=== PATIENT | female | born 1990 | race Caucasian/White ===

== ENCOUNTER → 2016-07-31 | Outpatient (CLI) | payer BC ==
[~2016-07-31] MED LIST: ACET50TA PO; ANUS2.5C2 PR; COLA50CA3 PO; FERR32TA PO; IBUP40TA PO; MOM30SS PO; PRENTAB74 PO; PROZ10CA7 PO; RISP1TAB3 PO
[2016-07-31 13:51] LABS: PROLACTIN 10.6 NG/ML
[2016-07-31 13:52] LABS: ESTRADIOL 28.5 PG/ML; FOLLICLE STIMULATING HORMONE 10.4 mIU/mL; LUTEINIZING HORMONE 6.4 mIU/mL
[2016-07-31 13:55] LABS: FREE T4 0.88 NG/DL (0.76-1.46)
[2016-08-03 00:08] LABS: 17 HYDROXY PROGESTERONE 26 ng/dL (.)
== END ==
LOC: M SMT 10:28
PROVIDERS: ATTEND Advanced Practice Midwife
DX: N97.9 Female infertility, unspecified (principal)

== ENCOUNTER → 2016-08-18 | Outpatient (REF) | payer BC | LOC: M LABDRWAD 09:47 → M LAB REF 09:47 | PROVIDERS: ATTEND Advanced Practice Midwife | DX: N97.9 Female infertility, unspecified (principal) ==

== ENCOUNTER → 2016-09-24 | Outpatient (CLI) | payer BC ==
[2016-09-24 14:27] LABS: BASO % 0.5 % (0.0-1.0); EOS # 0.1 K/mm3 (0.0-0.50); EOS % 1.6 % (0.0-3.0); LARGE UNSTAINED CELL # 0.1 K/mm3 (0.0-0.4); LARGE UNSTAINED CELL % 1.1 % (0.0-4.0); LYMPH # 1.8 K/mm3 (1.5-6.5); LYMPH % 28.4 % (24.0-44.0); MEAN CORPUSCULAR HGB CONC 33.9 g/dl (32.0-36.5); MEAN CORPUSCULAR VOLUME 85.6 fl (80.0-96.0); MONO # 0.3 K/mm3 (0.0-0.8); MONO % 4.5 % (0.0-5.0); NEUTROPHILS # 4.1 K/mm3 (1.8-7.7); PLATELET COUNT, AUTOMATED 289 k/mm3 (150-450); RED CELL DISTRIBUTION WIDTH 12.4 % (11.5-14.5); WHITE BLOOD COUNT 6.4 K/mm3 (4.0-10.0)
[2016-09-25 12:47] LABS: HIV SCREEN CENTAUR NEGATIVE (NEGATIVE)
[2016-09-25 12:48] LABS: HBsAg Prenatal NEGATIVE (NEGATIVE)
== END ==
LOC: M SMT 09:46
PROVIDERS: ATTEND Advanced Practice Midwife
DX: Z34.81 Encounter for supervision of other normal pregnancy, first trimester (principal)

== ENCOUNTER 2016-10-17 15:30 | Emergency (ER) | payer BC ==
[~2016-10-17] VITALS: Ht 162.6 cm; Wt 90.7 kg
[2016-10-17] MEDS ORDERED: VITA50TA43 PO (15:51)
[2016-10-17] MEDS ORDERED: UNIS25TA2 PO (15:51)
[2016-10-17] MEDS ORDERED: METOCLOPRAMIDE INJ 10MG/2ML VIAL (J2765) IV ONE (16:30)
[2016-10-17] MEDS ORDERED: NS 1,000 ML IV ONE (16:30)
[2016-10-17] MEDS ORDERED: PYRIDOXINE 50 MG TAB PO ONE (17:00)
[2016-10-17] MEDS ORDERED: NITR100C37 PO (17:25)
[2016-10-17 17:37] LABS: BASO % 0.2 % (0.0-1.0); EOS # 0.1 K/mm3 (0.0-0.50); EOS % 0.6 % (0.0-3.0); LARGE UNSTAINED CELL # 0.1 K/mm3 (0.0-0.4); LARGE UNSTAINED CELL % 0.7 % (0.0-4.0); LYMPH # 1.8 K/mm3 (1.5-6.5); MEAN CORPUSCULAR HEMOGLOBIN 29.5 pg (27.0-33.0); MEAN CORPUSCULAR VOLUME 84.4 fl (80.0-96.0); MONO # 0.4 K/mm3 (0.0-0.8); MONO % 3.7 % (0.0-5.0); NEUTROPHILS # 9.7 K/mm3 (1.8-7.7); NEUTROPHILS % 80.8 % (36.0-66.0); PLATELET COUNT, AUTOMATED 282 k/mm3 (150-450); RED CELL DISTRIBUTION WIDTH 12.6 % (11.5-14.5)
[2016-10-17 18:34] LABS: ALBUMIN 3.5 GM/DL (3.2-5.2); ALBUMIN/GLOBULIN RATIO 0.95 (1.00-1.93); ALKALINE PHOSPHATASE 53 U/L (45-117); ALT/SGPT 33 U/L (12-78); ANION GAP 12 MEQ/L (8-16); AST/SGOT 12 U/L (15-37); BILIRUBIN,DIRECT 0.3 MG/DL (0.0-0.2); BILIRUBIN,TOTAL 0.8 MG/DL (0.2-1.0); BLOOD UREA NITROGEN 5 MG/DL (7-18); CALCIUM LEVEL 8.4 MG/DL (8.5-10.1); CARBON DIOXIDE LEVEL 23 MEQ/L (21-32); CHLORIDE LEVEL 103 MEQ/L (98-107); GLOMERULAR FILTRATION RATE > 60.0 (>60); GLUCOSE, FASTING 91 MG/DL (70-105); HCG, SERUM QUANTITATIVE 41958 MIU/ML; POTASSIUM SERUM 3.4 MEQ/L (3.5-5.1); SODIUM LEVEL 138 MEQ/L (136-145); TOTAL PROTEIN 7.2 GM/DL (6.4-8.2)
[2016-10-17 18:55] VITALS: BP 107/65
== END 2016-10-17 19:03 | disposition home or self-care (01) ==
LOC: M ED 16:28
DX: O21.0 Mild hyperemesis gravidarum (principal); O23.41 Unspecified infection of urinary tract in pregnancy, first trimester; Z3A.11 11 weeks gestation of pregnancy; O99.341 Other mental disorders complicating pregnancy, first trimester; F33.9 Major depressive disorder, recurrent, unspecified; Z88.0 Allergy status to penicillin
CPT/HCPCS: 36415; 80048; 80076; 81001; 84702; 85025; 87086; 96361; 96374; 99282; J2765

== ENCOUNTER 2016-10-19 10:14 | Emergency (ER) | payer BC ==
[~2016-10-19] VITALS: Ht 162.6 cm; Wt 90.7 kg
[~2016-10-19 10:14] MED LIST changes: +NITR100C37 PO; +UNIS25TA2 PO; +VITA50TA43 PO
[2016-10-19] MEDS ORDERED: REGL5TAB2 PO (10:24)
[2016-10-19] MEDS ORDERED: NS 1,000 ML IV ONE (10:45)
[2016-10-19 11:03] LABS: BASO % 0.2 % (0.0-1.0); EOS # 0.1 K/mm3 (0.0-0.50); EOS % 1.2 % (0.0-3.0); LARGE UNSTAINED CELL # 0.1 K/mm3 (0.0-0.4); LYMPH # 1.8 K/mm3 (1.5-6.5); LYMPH % 18.4 % (24.0-44.0); MEAN CORPUSCULAR HEMOGLOBIN 29.4 pg (27.0-33.0); MEAN CORPUSCULAR HGB CONC 35.7 g/dl (32.0-36.5); MEAN CORPUSCULAR VOLUME 82.4 fl (80.0-96.0); MONO # 0.3 K/mm3 (0.0-0.8); MONO % 3.3 % (0.0-5.0); NEUTROPHILS # 6.9 K/mm3 (1.8-7.7); NEUTROPHILS % 75.8 % (36.0-66.0); PLATELET COUNT, AUTOMATED 312 k/mm3 (150-450); RED CELL DISTRIBUTION WIDTH 12.5 % (11.5-14.5); WHITE BLOOD COUNT 9.2 K/mm3 (4.0-10.0)
[2016-10-19] MEDS ORDERED: ONDANSETRON 4MG/2ML VIAL (J2405) IV PRN (11:15)
[2016-10-19 11:23] LABS: ALBUMIN 3.5 GM/DL (3.2-5.2); ALBUMIN/GLOBULIN RATIO 0.81 (1.00-1.93); ALKALINE PHOSPHATASE 57 U/L (45-117); ALT/SGPT 34 U/L (12-78); ANION GAP 13 MEQ/L (8-16); AST/SGOT 14 U/L (15-37); BILIRUBIN,DIRECT 0.4 MG/DL (0.0-0.2); BILIRUBIN,TOTAL 0.8 MG/DL (0.2-1.0); BLOOD UREA NITROGEN 7 MG/DL (7-18); CALCIUM LEVEL 8.8 MG/DL (8.5-10.1); CARBON DIOXIDE LEVEL 21 MEQ/L (21-32); CHLORIDE LEVEL 104 MEQ/L (98-107); CREATININE FOR GFR 0.54 MG/DL (0.55-1.02); GLOMERULAR FILTRATION RATE > 60.0 (>60); GLUCOSE, FASTING 91 MG/DL (70-105); POTASSIUM SERUM 3.1 MEQ/L (3.5-5.1); SODIUM LEVEL 138 MEQ/L (136-145); TOTAL PROTEIN 7.8 GM/DL (6.4-8.2)
[2016-10-19 11:54] LABS: MAGNESIUM LEVEL 1.9 MG/DL (1.8-2.4)
[2016-10-19] MEDS ORDERED: POTASSIUM CHLORIDE 10 MEQ SR TABLET PO ONE (12:15)
[2016-10-19] MEDS ORDERED: ZOFR4TAB3 PO (13:17)
[2016-10-19 13:21] VITALS: BP 123/80
== END 2016-10-19 13:28 | disposition home or self-care (01) ==
LOC: M ED 10:44
DX: O21.0 Mild hyperemesis gravidarum (principal); O99.281 Endocrine, nutritional and metabolic diseases complicating pregnancy, first trimester; E87.6 Hypokalemia; Z3A.12 12 weeks gestation of pregnancy; Z88.0 Allergy status to penicillin
CPT/HCPCS: 80048; 80076; 81001; 83735; 85025; 96374; 99283; J2405

== ENCOUNTER → 2016-10-30 | Outpatient (REF) | payer BC ==
[~2016-10-30] MED LIST changes: +REGL5TAB2 PO; +ZOFR4TAB3 PO
== END ==
LOC: M LAB REF 17:00
PROVIDERS: ATTEND Advanced Practice Midwife
DX: Z34.81 Encounter for supervision of other normal pregnancy, first trimester (principal)

== ENCOUNTER → 2016-12-09 | Outpatient (CLI) | payer BC ==
--- NOTE | 2016-12-10 01:18 | REP ---
Clinical: Anatomical evaluation. Comparison: None . Findings: Examination demonstrates a single live intrauterine in breech presentation. motion is identified by technologist. Placenta is noted anteriorly and grade zero without evidence for placenta previa or abruption. Amniotic fluid volume is normal. Cervix measures 4.0 cm in length and appears closed. No evidence for nuchal cord. Gestational age by LMP 19 weeks 0 days with MUSHTAQ 05/05/2017 . Gestational age by current measurements 18 weeks 6 days with MUSHTAQ 05/06/2017 . FHR equals 141 beats per minute. BPD 4.5 cm 19 weeks 3 days HC 16.6 cm 19 weeks 2 days AC 13.3 cm 18 weeks 5 days FL 2.9 cm 18 weeks 5 days HL 3.1 cm 20 weeks 1 day HC/AC ratio 1.25 Estimated weight 260 grams ( 41st percentile). Anatomical assessment demonstrates normal structures including cranium, choroid plexus, cavum, cerebellum/posterior fossa, lungs, diaphragm, stomach, cord insertion/three-vessel cord, kidneys/bladder, spine, and extremities. Limited evaluation of the facial features and four-chamber heart/ventricular outflow tracts noted. Impression: 1. Single live intrauterine in breech presentation demonstrating appropriate interval growth. 2. Anatomical limitations as described above may warrant reevaluation and follow-up. Signed by Pavan Montoya MD 12/10/2016 01:09 A
== END ==
LOC: M SMT 08:56
PROVIDERS: ATTEND Obstetrics & Gynecology
DX: Z34.82 Encounter for supervision of other normal pregnancy, second trimester (principal)

== ENCOUNTER → 2016-12-25 | Outpatient (CLI) | payer BC ==
--- NOTE | 2016-12-25 14:28 | REP ---
Clinical: Anatomical evaluation. Comparison: 12/09/2016 . Findings: Examination demonstrates a single live intrauterine in breech presentation. motion is identified by technologist. Placenta is noted anteriorly and grade zero without evidence for placenta previa or abruption. Amniotic fluid volume is normal. Cervix measures 5.8 cm in length and appears closed. No evidence for nuchal cord. Gestational age by LMP 21 weeks 2 days with MUSHTAQ 05/05/2017 . Gestational age by current measurements 21 weeks 4 days with MUSHTAQ 05/03/2017 . FHR equals 141 beats per minute. Estimated weight 428 grams ( 52nd percentile). Anatomical assessment demonstrates normal structures including cranium, choroid plexus, cavum, cerebellum/posterior fossa, facial features, lungs, diaphragm, stomach, cord insertion/three-vessel cord, kidneys/bladder, spine, and extremities. Incomplete evaluation of the heart and ventricular outflow tracts noted. Impression: 1. Single live intrauterine in breech presentation demonstrating appropriate interval growth. 2. With the exception of the heart and ventricular outflow tracts, anatomical assessment is complete and normal. Signed by Pavan Montoya MD 12/25/2016 02:20 P
== END ==
LOC: M SMT 12:59
PROVIDERS: ATTEND Advanced Practice Midwife
DX: Z36 Encounter for antenatal screening of mother (principal); Z3A.21 21 weeks gestation of pregnancy

== ENCOUNTER 2017-01-11 20:04 | Outpatient (CLI) | payer BC ==
[~2017-01-11] VITALS: Ht 162.6 cm; Wt 81.0 kg
[~2017-01-11 20:04] MED LIST changes: -NITR100C37 PO; +NITR100C39 PO
[2017-01-11 20:19] VITALS: BP 120/68
[2017-05-05] MEDS ORDERED: ACET50TA PO (10:55)
[2017-05-05] MEDS ORDERED: IBUP-1114 PO (10:57)
[2017-05-05] MEDS ORDERED: PRENTAB9 PO (11:03)
== END 2017-01-11 21:00 | disposition home or self-care (01) ==
LOC: M LDO 20:04
PROVIDERS: ATTEND Obstetrics & Gynecology
DX: O26.892 Other specified pregnancy related conditions, second trimester (principal); R10.9 Unspecified abdominal pain; Z3A.23 23 weeks gestation of pregnancy; O62.0 Primary inadequate contractions

== ENCOUNTER → 2017-01-23 | Outpatient (CLI) | payer BC ==
[~2017-01-23] MED LIST changes: +IBUP-1114 PO; +PRENTAB9 PO
--- NOTE | 2017-01-24 03:43 | REP ---
Clinical: Anatomical re-evaluation. Comparison: 12/25/2016 . Findings: Examination demonstrates a single live intrauterine in breech presentation. motion is identified by technologist. Placenta is noted anteriorly and grade I without evidence for placenta previa or abruption. Amniotic fluid volume is normal. Cervix measures 4.1 cm in length and appears closed. Nuchal cord appreciated. Gestational age by LMP 25 weeks 3 days with MUSHTAQ 05/05/2017 . Gestational age by current measurements 25 weeks 4 days with MUSHTAQ 05/04/2017 . FHR equals 144 beats per minute. Estimated weight 851 grams ( 53rd percentile). Anatomical assessment demonstrates normal structures including cranium, choroid plexus, cavum, cerebellum/posterior fossa, lungs, four-chamber heart/ventricular outflow tracts, diaphragm, stomach, cord insertion/three-vessel cord, kidneys/bladder, spine, and extremities. Impression: Single live intrauterine in breech presentation demonstrating appropriate interval growth. Nuchal cord noted. In conjunction with prior examination anatomical assessment is complete and normal. Signed by Pavan Montoya MD 01/24/2017 03:35 A
== END ==
LOC: M SMT 10:57
PROVIDERS: ATTEND Specialist
DX: Z36 Encounter for antenatal screening of mother (principal); Z3A.25 25 weeks gestation of pregnancy

== ENCOUNTER → 2017-01-28 | Outpatient (CLI) | payer BC ==
[2017-01-28 13:16] LABS: BASO % 0.3 % (0.0-1.0); EOS # 0.2 K/mm3 (0.0-0.50); EOS % 2.8 % (0.0-3.0); LARGE UNSTAINED CELL # 0.1 K/mm3 (0.0-0.4); LARGE UNSTAINED CELL % 0.6 % (0.0-4.0); LYMPH # 1.5 K/mm3 (1.5-6.5); LYMPH % 16.9 % (24.0-44.0); MEAN CORPUSCULAR HEMOGLOBIN 29.5 pg (27.0-33.0); MEAN CORPUSCULAR HGB CONC 32.7 g/dl (32.0-36.5); MEAN CORPUSCULAR VOLUME 90.3 fl (80.0-96.0); MONO # 0.4 K/mm3 (0.0-0.8); MONO % 5.1 % (0.0-5.0); NEUTROPHILS # 6.2 K/mm3 (1.8-7.7); NEUTROPHILS % 74.3 % (36.0-66.0); PLATELET COUNT, AUTOMATED 283 k/mm3 (150-450); RED CELL DISTRIBUTION WIDTH 12.5 % (11.5-14.5); WHITE BLOOD COUNT 8.4 K/mm3 (4.0-10.0)
== END ==
LOC: M SMT 09:50
PROVIDERS: ATTEND Specialist
DX: Z34.82 Encounter for supervision of other normal pregnancy, second trimester (principal)
CPT/HCPCS: 36415; 82950; 85025; 86850; 86900; 86901; J2790

== ENCOUNTER → 2017-02-13 | Outpatient (CLI) | payer BC | LOC: M LAB 07:42 | PROVIDERS: ATTEND Advanced Practice Midwife | DX: Z34.82 Encounter for supervision of other normal pregnancy, second trimester (principal) ==

== ENCOUNTER → 2017-04-10 | Outpatient (REF) | payer BC | LOC: M LAB REF 12:59 | PROVIDERS: ATTEND Advanced Practice Midwife | DX: Z34.83 Encounter for supervision of other normal pregnancy, third trimester (principal) ==

== ENCOUNTER → 2017-07-18 | Outpatient (REF) | payer BC ==
[2017-07-18 15:08] LABS: FREE THYROXINE INDEX 5.9 % (1.3-4.8); T UPTAKE 32 % (30-39); THYROID STIMULATING HORMONE 0.012 uIU/ML (0.358-3.740); THYROXINE (T4) 18.3 UG/DL (4.5-12.0)
[2017-07-18 15:14] LABS: TOTAL 25(OH) VITAMIN D 14.8 NG/ML (30.0-100.0)
== END ==
LOC: M LABSMT 13:41
DX: F32.89 Other specified depressive episodes (principal)
CPT/HCPCS: 84443

== ENCOUNTER → 2017-11-12 | Outpatient (REF) | payer BC | LOC: M LAB REF 18:58 | DX: Z12.4 Encounter for screening for malignant neoplasm of cervix (principal) | CPT/HCPCS: G0123 ==

== ENCOUNTER → 2018-01-13 | Outpatient (CLI) | payer BC | LOC: M ADAMS 16:58 | DX: E03.8 Other specified hypothyroidism (principal) | CPT/HCPCS: 84443 ==

== ENCOUNTER → 2018-10-26 | Outpatient (REF) | payer BC ==
[~2018-10-26] MED LIST changes: -ACET50TA PO; -IBUP40TA PO; +MAPA500T17 PO; +MAPA500T2 PO; -UNIS25TA2 PO; +UNIS25TA3 PO; +ZOFR4TAB14 PO; -ZOFR4TAB3 PO
[2018-10-26 12:44] LABS: HCG, SERUM QUALITATIVE NEGATIVE (NEGATIVE)
== END ==
LOC: M LABDRWAD 12:17
PROVIDERS: ATTEND Advanced Practice Midwife
DX: N92.6 Irregular menstruation, unspecified (principal)

== ENCOUNTER → 2018-11-10 | Outpatient (REF) | payer BC ==
[~2018-11-10] MED LIST changes: +CIPR-249 PO; +HYDR-3713 PO; +LEVO50TA5 PO
[2018-11-10 14:19] LABS: FOLLICLE STIMULATING HORMONE 8.2 mIU/mL; PROLACTIN 7.3 NG/ML
[2018-11-14 00:07] LABS: INSULIN FREE 14 uU/mL (.); INSULIN TOTAL2 14 uU/mL (.)
== END ==
LOC: M LAB REF 13:19
PROVIDERS: ATTEND Advanced Practice Midwife
DX: N92.6 Irregular menstruation, unspecified (principal)

== ENCOUNTER 2018-11-18 19:51 | Day surgery (SDC) | payer BC ==
[~2018-11-18] VITALS: Ht 162.6 cm; Wt 93.2 kg
[~2018-11-18 19:51] MED LIST changes: -CIPR-249 PO; -HYDR-3713 PO; -LEVO50TA5 PO
[2018-11-18] MEDS ORDERED: LEVO50TA5 PO (19:58)
[2018-11-18 22:07] LABS: BASO % 0.3 % (0.0-1.0); EOS # 0.1 10^3/uL (0.0-0.50); EOS % 0.5 % (0.0-3.0); HEMATOCRIT 41.4 % (36.0-47.0); HEMOGLOBIN 13.5 g/dl (12.0-15.5); LYMPH # 2.3 10^3/uL (1.5-6.5); LYMPH % 15.5 % (24.0-44.0); MEAN CORPUSCULAR HEMOGLOBIN 28.1 pg (27.0-33.0); MEAN CORPUSCULAR HGB CONC 32.6 g/dl (32.0-36.5); MEAN CORPUSCULAR VOLUME 86.3 fl (80.0-96.0); MONO # 0.7 10^3/uL (0.0-0.8); MONO % 4.9 % (0.0-5.0); NEUTROPHILS # 11.6 10^3/uL (1.8-7.7); NEUTROPHILS % 78.3 % (36.0-66.0); PLATELET COUNT, AUTOMATED 287 10^3/uL (150-450); WHITE BLOOD COUNT 14.8 10^3/uL (4.0-10.0)
[2018-11-18 22:38] LABS: ALBUMIN 4.1 GM/DL (3.2-5.2); ALT/SGPT 16 U/L (12-78); BILIRUBIN,DIRECT 0.1 MG/DL (0.0-0.2); BILIRUBIN,TOTAL 0.5 MG/DL (0.2-1.0); BLOOD UREA NITROGEN 5 MG/DL (7-18); CALCIUM LEVEL 8.9 MG/DL (8.5-10.1); CARBON DIOXIDE LEVEL 30 MEQ/L (21-32); CHLORIDE LEVEL 107 MEQ/L (98-107); CREATININE FOR GFR 0.81 MG/DL (0.55-1.30); GLOMERULAR FILTRATION RATE > 60.0 (>60); GLUCOSE, FASTING 100 MG/DL (70-100); LIPASE 155 U/L (73-393); POTASSIUM SERUM 4.3 MEQ/L (3.5-5.1); SODIUM LEVEL 143 MEQ/L (136-145); TOTAL PROTEIN 7.4 GM/DL (6.4-8.2)
[2018-11-18 23:18] LABS: HCG, SERUM QUALITATIVE NEGATIVE (NEGATIVE)
--- NOTE | 2018-11-19 00:43 | REPVR ---
EXAM: US Pelvis Complete, Transabdominal EXAM DATE/TIME: 11/18/2018 11:49 PM CLINICAL HISTORY: 28 years old, female; Pelvic pain; Additional info: R/O ovarian torsion TECHNIQUE: Imaging protocol: Real-time transabdominal pelvic ultrasound with image documentation. Complete exam. COMPARISON: US OBS FOLL UP OR REPEAT EACH GES 01/23/2017 11:15 AM FINDINGS: Uterus/cervix: Uterus measures 8.2 x 3.2 x 4.9 cm. Endometrial stripe measures 6.3 mm in thickness. No masses. Right adnexa: Right ovary 2.7 x 2.2 x 2.5 cm. Ovary is normal. No mass. Normal blood flow. Left adnexa: Left ovary measures 2.6 x 1.6 x 1.9 cm. Ovary is normal. No mass. Normal blood flow. Free fluid: None. Bladder: Normal. IMPRESSION: Unremarkable pelvic ultrasound. Electronically signed by: Rozina Simon On 11/19/2018 00:42:09 AM
[2018-11-19] MEDS ORDERED: ONDANSETRON 4MG/2ML VIAL (J2405) IV ONE (00:45)
[2018-11-19] MEDS ORDERED: NS 1,000 ML IV SCH (00:45)
[2018-11-19] MEDS ORDERED: MORPHINE 4 MG/ML 1ML VIAL/SYRINGE (J2270) IV PRN (00:45)
[2018-11-19] MEDS ORDERED: ISOVUE-370 76% 100ML VIAL (Q9967) As Ordered ONE (00:49)
[2018-11-19] MEDS: GASTROGRAFIN SOLUTION 30ML PO SCH ×2 (01:40→02:08)
--- NOTE | 2018-11-19 02:33 | REPVR ---
EXAM: CT Abdomen and Pelvis With Contrast EXAM DATE/TIME: 11/19/2018 12:33 AM CLINICAL HISTORY: 28 years old, female; Abdominal pain; Periumbilical; Additional info: Appendicitis TECHNIQUE: Imaging protocol: Axial computed tomography images of the abdomen and pelvis with intravenous contrast. Coronal and sagittal reformatted images were created and reviewed. Radiation optimization: All CT scans at this facility use at least one of these dose optimization techniques: automated exposure control; mA and/or kV adjustment per patient size (includes targeted exams where dose is matched to clinical indication); or iterative reconstruction. Contrast material: ISO; Contrast volume: 100 ml; Contrast route: AC; COMPARISON: US ANATOMY TEACHER 11/18/2018 11:43 PM FINDINGS: ABDOMEN: Liver: Dome of the liver is not imaged. No mass. Gallbladder and bile ducts: Normal. No calcified stones. No ductal dilation. Pancreas: Normal. No ductal dilation. Spleen: Normal. No splenomegaly. Adrenals: Normal. No mass. Kidneys and ureters: Normal. No hydronephrosis. Stomach and bowel: No obstruction. No mucosal thickening. Small fluid in the right colon.Moderate stool in the colon. Negative for colonic diverticulitis. Appendix: Distal appendix measures 11 mm in diameter. Periappendiceal stranding. PELVIS: Bladder: Unremarkable as visualized. Reproductive: Uterus is normal. ABDOMEN and PELVIS: Intraperitoneal space: Normal. No free air. No significant fluid collection. Bones/joints: No acute fracture. No dislocation. Soft tissues: Unremarkable. Vasculature: Normal. No abdominal aortic aneurysm. Lymph nodes: Normal. No enlarged lymph nodes. IMPRESSION: 1. Findings consistent with acute appendicitis. 2. Periappendiceal stranding however, doubtful for appendiceal perforation. 3. Mild diarrhea. COMMENT: THIS REPORT CONTAINS FINDINGS THAT MAY BE CRITICAL TO PATIENT CARE. The findings were verbally communicated via telephone conference with Dr. VIEIRA, at 2:31 AM EDT on 11/19/2018. The findings were acknowledged and understood. Electronically signed by: Rozina Simon On 11/19/2018 02:32:45 AM
[2018-11-19] MEDS ORDERED: CIPROFLOXACIN 400 MG in APPROPRIATE DILUENT 1 EA IV ONE (03:30)
[2018-11-19] MEDS ORDERED: metroNIDAZOLE 500 MG in APPROPRIATE DILUENT 1 EA IV ONE (03:30)
[2018-11-19] MEDS ORDERED: CIPROFLOXACIN/D5W 400 MG/200 ML BAG (J0744) As Ordered ONE (05:39)
[2018-11-19] MEDS ORDERED: BUPIVACAINE/EPIN 0.25% 30 ML VIAL As Ordered ONE (05:39)
[2018-11-19] MEDS ORDERED: ROCURONIUM BROMIDE 50 MG/5 ML VIAL As Ordered ONE (05:45)
[2018-11-19] MEDS ORDERED: LIDOCAINE 2% INJ 100 MG/5 ML SDV (FOR ANES.) As Ordered ONE (05:45)
[2018-11-19] MEDS ORDERED: fentaNYL 250 MCG/5 ML INJECTION (J3010) As Ordered ONE (05:45)
[2018-11-19] MEDS ORDERED: PROPOFOL 200 MG/20 ML VIAL As Ordered ONE (05:45)
[2018-11-19] MEDS ORDERED: MIDAZOLAM INJ 2 MG/2 ML VIAL (J2250) As Ordered ONE (05:46)
[2018-11-19] MEDS ORDERED: dexameTHASONE 4 MG/ML 1ML VIAL (J1100) As Ordered ONE (06:22)
[2018-11-19] MEDS ORDERED: ONDANSETRON 4MG/2ML VIAL (J2405) As Ordered ONE (06:34)
[2018-11-19] MEDS ORDERED: KETOROLAC 60 MG/2 ML VIAL (J1885) As Ordered ONE (06:34)
[2018-11-19] MEDS ORDERED: SUGAMMADEX SODIUM 500 MG/5 ML VIAL (BRIDION) As Ordered ONE ×2 (06:35→06:43)
[2018-11-19] MEDS ORDERED: CIPR-249 PO (06:58)
[2018-11-19] MEDS ORDERED: HYDR-3713 PO (06:58)
[2018-11-19] MEDS ORDERED: MEPERIDINE INJ 25 MG/ML VIAL (J2175) IV PRN (07:15)
[2018-11-19] MEDS ORDERED: PERCOCET 5MG/325MG TAB PO PRN (07:15)
[2018-11-19] MEDS ORDERED: NORCO, ANEXSIA 5/325MG TABLET (HYDROcodone/ACETAMINOPHEN) PO PRN (07:15)
[2018-11-19] MEDS ORDERED: LR 1,000 ML IV SCH (07:15)
[2018-11-19] MEDS ORDERED: METOCLOPRAMIDE INJ 10MG/2ML VIAL (J2765) IV PRN (07:15)
[2018-11-19] MEDS ORDERED: fentaNYL 100 MCG/2 ML INJECTION (J3010) IV PRN (07:15)
[2018-11-19] MEDS ORDERED: ONDANSETRON 4MG/2ML VIAL (J2405) IV PRN (07:15)
[2018-11-19 09:32] VITALS: BP 113/68
--- NOTE | 2018-11-19 15:18 | HPE ---
DATE OF ADMISSION: 11/19/2018 CHIEF COMPLAINT: Right lower quadrant pain. HISTORY OF PRESENT ILLNESS: The patient is a 28-year-old female who presented with right lower quadrant pain over 24 hours ago. Pain was fairly constant and got slightly worse over the past 12 hours, so after her got home from work yesterday, she came into emergency room for evaluation. When this initially started, she had some nausea and vomiting. She has not had any since. No other changes. No trauma to the abdomen. No changes in medications. No recent travel or sick contacts and no other complaints. Denies any fevers or changes of bowel movements or problems with urination. PAST MEDICAL HISTORY: Hypothyroidism. PAST SURGICAL HISTORY: None. ALLERGIES: PENICILLIN. MEDICATIONS: Please see med record. SOCIAL HISTORY: Denies drug, alcohol, or tobacco abuse. FAMILY HISTORY: Noncontributory. REVIEW OF SYSTEMS: Pertinent positives and negatives as stated in the history of present illness (HPI). PHYSICAL EXAMINATION: GENERAL: Alert and oriented times three, in no acute stress. VITAL SIGNS: Temperature 98.7, pulse 86, respirations 16, blood pressure 103/58, pulse oximetry 96% on room air. HEENT: Pupils equally round and react to light and accommodation. HEART: S1, S2, regular rate and rhythm. LUNGS: Clear to auscultation bilaterally. ABDOMEN: Soft, tender to palpation in the right lower quadrant with localized guarding. No rebound or rigidity. No ventral hernias. EXTREMITIES: No clubbing, cyanosis or edema. LABORATORY DATA: White count 14.8, hemoglobin 13.5 platelets 287. Potassium 4.3, creatinine 0.81. IMAGING STUDIES: CT of the abdomen and pelvis was done that showed a dilated tip of the appendix at 11 mm with some periappendiceal fat stranding concerning for acute appendicitis. ASSESSMENT AND PLAN: The patient is a 28-year-old female with signs and symptoms consistent with acute appendicitis. Recommendation is to proceed with a laparoscopic appendectomy. The risks and benefits of the procedure not limited to but including bleeding, infection, hernia formation, damage to surrounding structure, the need for further surgery discussed in detail with the patient. Informed consent was obtained and procedure is scheduled for urgently this morning. Postoperatively, we will keep her in the hospital for a few hours, make sure she is tolerating a diet, and then we will likely plan discharge either this afternoon or first thing tomorrow morning.
--- NOTE | 2018-11-19 17:34 | RO ---
DATE OF PROCEDURE: 11/19/2018 PREOPERATIVE DIAGNOSIS: Acute appendicitis. POSTOPERATIVE DIAGNOSIS: Acute appendicitis. PROCEDURE: Laparoscopic appendectomy. SURGEON: Dr. Nawaf Montana AGRICULTURAL RESEARCH TECHNOLOGIST: None. ANESTHESIA: General. COMPLICATIONS: None. INDICATION FOR PROCEDURE: The patient is a 28-year-old female who presents with right lower quadrant pain, found to have acute appendicitis. Recommendation was to proceed with laparoscopic, possible open appendectomy. Risks and benefits of the procedure not limited to but including bleeding, infection, hernia formation, damage to surrounding structures and need for further surgery were discussed in detail with the patient. Informed consent was obtained and procedure was planned. DESCRIPTION OF PROCEDURE: The patient was brought back to operating room three, after sufficient sedation, the abdomen was sterilely prepped and draped. Next, a time-out was done to confirm proper patient, proper procedure. Following that, a 5 mm incision was made in the left upper quadrant. Veress needle was inserted and the abdomen was insufflated to 15 mmHg. Next, the Veress needle was removed, 5 mm Optiview port was used to gain access to the abdomen. Once the abdomen was entered, another 8 mm port was placed supraumbilically in the midline, another 5 mm port suprapubically in the midline. The appendix was then visualized in the right lower quadrant. The tip of the appendix was densely adhered to the retroperitoneum. This was dissected free using the Enseal. The mesoappendix was then taken down using the Enseal until the base of the appendix was reached. Base of the appendix was then ligated with two PDS Endoloops and then transected. Appendix was then placed in a 5 mm Endo Catch bag and brought out through the supraumbilical port site. The abdomen was then examined to confirm hemostasis. The abdomen was then desufflated. Skin incisions were closed with #4-0 Vicryl subcuticular sutures. The abdomen was cleaned and dried. Steri-Strips, 4x4, and tape were applied thus ending procedure.
== END 2018-11-19 09:13 | disposition home or self-care (01) ==
LOC: M ED 19:51 → M SDC 19:52
PROVIDERS: ATTEND Surgery
DX: K35.890 Other acute appendicitis without perforation or gangrene (principal); E03.9 Hypothyroidism, unspecified; Z79.899 Other long term (current) drug therapy
CPT/HCPCS: 44970; 74177; 76856; 80048; 80076; 81001; 83690; 84703; 85025; 87086; 88302; 96361; 96365; 96366; 96375; 99284; J0744; J1100; J1885; J2250; J2405; J3010; Q9963; Q9967

== ENCOUNTER → 2018-11-28 | Outpatient (REF) | payer BC ==
[~2018-11-28] MED LIST changes: +CIPR-249 PO; +HYDR-3713 PO; +LEVO50TA5 PO
[2018-11-30 10:21] LABS: ESTRADIOL 46.3 PG/ML; PROGESTERONE 0.22 NG/ML
== END ==
LOC: M LABDRWAD 09:39
PROVIDERS: ATTEND Advanced Practice Midwife
DX: N92.6 Irregular menstruation, unspecified (principal)

== ENCOUNTER → 2018-12-15 | Outpatient (REF) | payer BC ==
[2018-12-15 13:07] LABS: FREE T4 1.04 NG/DL (0.76-1.46); THYROID STIMULATING HORMONE 1.44 uIU/ML (0.358-3.740)
== END ==
LOC: M LABDRWAD 12:10
PROVIDERS: ATTEND Advanced Practice Midwife
DX: E03.9 Hypothyroidism, unspecified (principal)

== ENCOUNTER 2019-01-03 21:44 | Emergency (ER) | payer BC ==
[~2019-01-03] VITALS: Ht 162.6 cm; Wt 95.5 kg
[2019-01-03 21:45] VITALS: BP 122/69
[2019-01-03 22:24] LABS: BASO # 0.1 10^3/uL (0.0-0.2); BASO % 0.7 % (0.0-1.0); EOS # 0.5 10^3/uL (0.0-0.50); EOS % 7.3 % (0.0-3.0); HEMATOCRIT 40.4 % (36.0-47.0); LYMPH % 40.6 % (24.0-44.0); MEAN CORPUSCULAR HEMOGLOBIN 27.2 pg (27.0-33.0); MEAN CORPUSCULAR HGB CONC 32.2 g/dl (32.0-36.5); MEAN CORPUSCULAR VOLUME 84.5 fl (80.0-96.0); MONO # 0.5 10^3/uL (0.0-0.8); MONO % 6.1 % (0.0-5.0); NEUTROPHILS # 3.3 10^3/uL (1.8-7.7); PLATELET COUNT, AUTOMATED 276 10^3/uL (150-450); RED BLOOD COUNT 4.78 10^6/uL (4.00-5.40); WHITE BLOOD COUNT 7.4 10^3/uL (4.0-10.0)
[2019-01-03 22:46] LABS: ALBUMIN 3.9 GM/DL (3.2-5.2); ALT/SGPT 24 U/L (12-78); BILIRUBIN,DIRECT < 0.1 MG/DL (0.0-0.2); BILIRUBIN,TOTAL 0.1 MG/DL (0.2-1.0); BLOOD UREA NITROGEN 8 MG/DL (7-18); CALCIUM LEVEL 8.4 MG/DL (8.5-10.1); CARBON DIOXIDE LEVEL 28 MEQ/L (21-32); CHLORIDE LEVEL 106 MEQ/L (98-107); CREATININE FOR GFR 0.74 MG/DL (0.55-1.30); GLOMERULAR FILTRATION RATE > 60.0 (>60); GLUCOSE, FASTING 121 MG/DL (70-100); LIPASE 121 U/L (73-393); POTASSIUM SERUM 4.1 MEQ/L (3.5-5.1); SODIUM LEVEL 142 MEQ/L (136-145); TOTAL PROTEIN 7.3 GM/DL (6.4-8.2)
== END 2019-01-03 23:21 | disposition home or self-care (01) ==
LOC: M ED 21:44
DX: G89.18 Other acute postprocedural pain (principal); R10.84 Generalized abdominal pain; Z90.89 Acquired absence of other organs; E03.9 Hypothyroidism, unspecified; Z79.899 Other long term (current) drug therapy; Z88.0 Allergy status to penicillin

== ENCOUNTER → 2019-02-27 | Outpatient (CLI) | payer BC | LOC: M ADAMS 08:40 | PROVIDERS: ATTEND Family Medicine | DX: E03.9 Hypothyroidism, unspecified (principal) ==

== ENCOUNTER → 2019-05-31 | Outpatient (REF) | payer BC, MEDICAID ==
[2019-05-31 19:43] LABS: BASO % 0.4 % (0.0-1.0); EOS # 0.2 10^3/uL (0.0-0.5); EOS % 2.1 % (0.0-3.0); HEMATOCRIT 38.8 % (36.0-47.0); HEMOGLOBIN 12.7 g/dl (12.0-15.5); LYMPH # 2.5 10^3/uL (1.5-5.0); MEAN CORPUSCULAR HEMOGLOBIN 28.8 pg (27.0-33.0); MEAN CORPUSCULAR HGB CONC 32.7 g/dl (32.0-36.5); MONO # 0.5 10^3/uL (0.0-0.8); MONO % 5.1 % (0.0-5.0); NEUTROPHILS # 6.6 10^3/uL (1.5-8.5); PLATELET COUNT, AUTOMATED 289 10^3/uL (150-450); RED BLOOD COUNT 4.41 10^6/uL (4.00-5.40); WHITE BLOOD COUNT 9.9 10^3/uL (4.0-10.0)
[2019-05-31 20:06] LABS: FREE T4 1.03 NG/DL (0.76-1.46)
[2019-05-31 22:27] LABS: CHLAMYDIA DNA AMPLIFICATION NEGATIVE (NEGATIVE); GC DNA AMPLIFICATION NEGATIVE (NEGATIVE)
[2019-06-02 10:07] LABS: RUBELLA IgG QUALITATIVE IMMUNE (IMMUNE)
[2019-06-02 10:36] LABS: HEPATITIS C VIRUS ABY INDEX 0.1 INDEX (<0.8); HIV 1&2 SCREEN CENTAUR NEGATIVE (NEGATIVE)
== END ==
LOC: M LABDRWAD 19:10
PROVIDERS: ATTEND Advanced Practice Midwife
DX: Z34.81 Encounter for supervision of other normal pregnancy, first trimester (principal); Z36.89 Encounter for other specified antenatal screening

== ENCOUNTER → 2019-06-11 | Outpatient (REF) | payer MEDICAID, OTHER | LOC: M SFHCWAGY 12:40 | PROVIDERS: ATTEND Advanced Practice Midwife | DX: Z3A.12 12 weeks gestation of pregnancy (principal) ==

== ENCOUNTER → 2019-07-20 | Outpatient (CLI) | payer OTHER ==
--- NOTE | 2019-07-21 03:08 | REP ---
Clinical: Anatomical evaluation. Comparison: None . Findings: Examination demonstrates a single live intrauterine in transverse (head to maternal left) presentation. motion is identified by technologist. Placenta is noted anterior/left lateral and grade zero without evidence for placenta previa or abruption. Amniotic fluid volume is normal. Cervix measures 3.9 cm in length and appears closed. No evidence for nuchal cord. Gestational age by current measurements 18 weeks 6 days with MUSHTAQ 12/15/2019 . FHR equals 136 beats per minute. BPD 4.5 cm 19 weeks 4 days HC 15.9 cm 18 weeks 5 days AC 13.0 cm 18 weeks 4 days FL 2.9 cm 18 weeks 6 days HL 2.6 cm 18 weeks 2 days HC/AC ratio 1.22 Estimated weight 255 grams ( 44th percentile). Anatomical assessment demonstrates normal structures including cranium, choroid plexus, cavum, cerebellum/posterior fossa, diaphragm, stomach, cord insertion/three-vessel cord, kidneys/bladder, spine, and extremities. Impression: Single live intrauterine in transverse lie demonstrating appropriate estimated weight. Limited evaluation of the facial features and heart/ventricular outflow tracts noted.
== END ==
LOC: M WHC 10:50
PROVIDERS: ATTEND Advanced Practice Midwife
DX: O32.2XX0 Maternal care for transverse and oblique lie, not applicable or unspecified (principal); Z36.89 Encounter for other specified antenatal screening; Z3A.19 19 weeks gestation of pregnancy

== ENCOUNTER → 2019-08-11 | Outpatient (CLI) | payer OTHER ==
[2019-08-11 12:01] LABS: HEMATOCRIT 36.4 % (36.0-47.0); HEMOGLOBIN 11.6 g/dl (12.0-15.5); MEAN CORPUSCULAR HEMOGLOBIN 28.5 pg (27.0-33.0); MEAN CORPUSCULAR HGB CONC 31.9 g/dl (32.0-36.5); MEAN CORPUSCULAR VOLUME 89.4 fl (80.0-96.0); PLATELET COUNT, AUTOMATED 259 10^3/uL (150-450); RED BLOOD COUNT 4.07 10^6/uL (4.00-5.40); WHITE BLOOD COUNT 8.6 10^3/uL (4.0-10.0)
== END ==
LOC: M PLALAB 09:13
PROVIDERS: ATTEND Advanced Practice Midwife
DX: Z34.82 Encounter for supervision of other normal pregnancy, second trimester (principal); Z3A.00 Weeks of gestation of pregnancy not specified

== ENCOUNTER → 2019-09-07 | Outpatient (CLI) | payer OTHER ==
--- NOTE | 2019-09-08 06:57 | REP ---
Clinical: Anatomical evaluation. Comparison: 07/20/2019 . Findings: Examination demonstrates a single live intrauterine in breech presentation. motion is identified by technologist. Placenta is noted anterior and grade zero without evidence for placenta previa or abruption. Amniotic fluid volume is normal. Cervix measures 3.9 cm in length and appears closed. No evidence for nuchal cord. Gestational age by LMP 25 weeks 6 days with MUSHTAQ 12/15/2019 . Gestational age by current measurements 25 weeks 0 days with MUSHTAQ 12/21/2019 . FHR equals 142 beats per minute. Estimated weight 784 grams ( 28th percentile). Anatomical assessment demonstrates normal structures including facial features, lungs, four-chamber heart/ventricular outflow tracts. Impression: Single live intrauterine in breech presentation demonstrating appropriate interval growth. In conjunction with prior examination anatomical assessment is complete and normal.
== END ==
LOC: M WHC 08:29
PROVIDERS: ATTEND Advanced Practice Midwife
DX: O99.282 Endocrine, nutritional and metabolic diseases complicating pregnancy, second trimester (principal); Z3A.25 25 weeks gestation of pregnancy; O32.1XX0 Maternal care for breech presentation, not applicable or unspecified

== ENCOUNTER → 2019-09-15 | Outpatient (REF) | payer OTHER ==
[2019-09-15 17:36] LABS: ALBUMIN 3.1 GM/DL (3.2-5.2); ALT/SGPT 14 U/L (12-78); BILIRUBIN,TOTAL 0.3 MG/DL (0.2-1.0); BLOOD UREA NITROGEN 4 MG/DL (7-18); CALCIUM LEVEL 8.7 MG/DL (8.5-10.1); CARBON DIOXIDE LEVEL 26 MEQ/L (21-32); CHLORIDE LEVEL 106 MEQ/L (98-107); CREATININE FOR GFR 0.48 MG/DL (0.55-1.30); GLOMERULAR FILTRATION RATE > 60.0 (>60); GLUCOSE, FASTING 72 MG/DL (70-100); POTASSIUM SERUM 3.9 MEQ/L (3.5-5.1); SODIUM LEVEL 138 MEQ/L (136-145)
[2019-09-15 17:42] LABS: FREE T4 0.92 NG/DL (0.76-1.46); THYROID STIMULATING HORMONE 1.22 uIU/ML (0.358-3.740)
== END ==
LOC: M PLALAB 12:18
PROVIDERS: ATTEND Advanced Practice Midwife
DX: O99.282 Endocrine, nutritional and metabolic diseases complicating pregnancy, second trimester (principal); Z3A.00 Weeks of gestation of pregnancy not specified

== ENCOUNTER → 2019-10-08 | Outpatient (REF) | payer OTHER ==
[2019-10-08 13:10] LABS: HEMATOCRIT 34.3 % (36.0-47.0); HEMOGLOBIN 11.2 g/dl (12.0-15.5); MEAN CORPUSCULAR HEMOGLOBIN 28.1 pg (27.0-33.0); MEAN CORPUSCULAR HGB CONC 32.7 g/dl (32.0-36.5); MEAN CORPUSCULAR VOLUME 86.2 fl (80.0-96.0); PLATELET COUNT, AUTOMATED 268 10^3/uL (150-450); RED BLOOD COUNT 3.98 10^6/uL (4.00-5.40)
[2019-10-08 13:26] LABS: ALBUMIN 2.7 GM/DL (3.2-5.2); ALT/SGPT 13 U/L (12-78); BILIRUBIN,TOTAL 0.3 MG/DL (0.2-1.0); BLOOD UREA NITROGEN 4 MG/DL (7-18); CALCIUM LEVEL 8.7 MG/DL (8.5-10.1); CARBON DIOXIDE LEVEL 26 MEQ/L (21-32); CHLORIDE LEVEL 104 MEQ/L (98-107); CREATININE FOR GFR 0.51 MG/DL (0.55-1.30); GLOMERULAR FILTRATION RATE > 60.0 (>60); GLUCOSE CHALLENGE TEST 1 HOUR 135 MG/DL (LESS THAN 140); GLUCOSE, FASTING 135 MG/DL (70-100); POTASSIUM SERUM 4.1 MEQ/L (3.5-5.1); SODIUM LEVEL 137 MEQ/L (136-145); TOTAL PROTEIN 6.6 GM/DL (6.4-8.2)
== END ==
LOC: M PLALAB 10:25
PROVIDERS: ATTEND Advanced Practice Midwife
DX: O99.282 Endocrine, nutritional and metabolic diseases complicating pregnancy, second trimester (principal); Z3A.00 Weeks of gestation of pregnancy not specified

== ENCOUNTER → 2019-11-11 | Outpatient (CLI) | payer OTHER | LOC: M LABSMTC 10:19 | PROVIDERS: ATTEND Family Medicine | DX: Z11.59 Encounter for screening for other viral diseases (principal) | CPT/HCPCS: C8903; U0003 ==

== ENCOUNTER → 2019-11-23 | Outpatient (REF) | payer OTHER | LOC: M SFHCWAGY 16:49 | PROVIDERS: ATTEND Obstetrics & Gynecology | DX: Z3A.36 36 weeks gestation of pregnancy (principal) ==

== ENCOUNTER 2019-12-16 04:04 | Inpatient (IN) | payer OTHER ==
[2019-12-16] VITALS (41 sets, daily range): BP systolic 104–161; BP diastolic 59–92
[~2019-12-16] VITALS: Ht 162.6 cm; Wt 107.9 kg
[2019-12-16] MEDS ORDERED: LACTATED RINGER'S 1000 ML IV STA (04:37)
[2019-12-16 05:34] LABS: HEMATOCRIT 33.7 % (36.0-47.0); HEMOGLOBIN 10.8 g/dl (12.0-15.5); MEAN CORPUSCULAR HEMOGLOBIN 26.2 pg (27.0-33.0); MEAN CORPUSCULAR VOLUME 81.6 fl (80.0-96.0); PLATELET COUNT, AUTOMATED 229 10^3/uL (150-450); RED BLOOD COUNT 4.13 10^6/uL (4.00-5.40); WHITE BLOOD COUNT 8.5 10^3/uL (4.0-10.0)
[2019-12-16] MEDS ORDERED: FENTANYL 2MCG/ML ROPIVACAINE 0.2% IN 0.9% NACL 100ML IVBAG As Ordered ONE (05:58)
[2019-12-16] MEDS: LR 1,000 ML IV SCH ×3 (06:30→13:07)
[2019-12-16] MEDS: FENTANYL/ROPIVACAINE/NACL BAG 100 ML EPIDURAL SCH ×2 (07:15→16:29)
[2019-12-16] MEDS ORDERED: EPIDURAL/PCA KEYS XX PRN (07:15)
[2019-12-16] MEDS ORDERED: LACTATED RINGER'S 1000 ML IV PRN (07:15)
[2019-12-16] MEDS ORDERED: EPIDURAL COMMENT XX SCH (07:15)
[2019-12-16] MEDS ORDERED: diphenhydrAMINE 50MG/ML VIAL (J1200) IV PRN (07:15)
[2019-12-16] MEDS ORDERED: NALOXONE INJ 0.4MG/1ML VIAL (J2310 PER 1MG) IV PRN (07:15)
[2019-12-16] MEDS ORDERED: REFRIGERATOR IV KEYS XX PRN (07:15)
[2019-12-16] MEDS ORDERED: ePHEDrine SULFATE 25 MG/5 ML(5MG/ML) SYRINGE IV PRN (07:15)
[2019-12-16] MEDS ORDERED: ONDANSETRON 4MG/2ML VIAL IV PRN ×2 (07:15→17:15)
--- NOTE | 2019-12-16 10:09 | HPEPDOC ---
Obstetrical History & Physical General Date of Admission Dec 16, 2019 at 04:38 Primary Care Physician: ROYAL CARDENAS CNM History of Present Illness Patient is a 29-year-old female who is a at 39.3 with an MUSHTAQ of 12/20/19 based off of her first trimester ultrasound. She initiated care in her first trimester with WW. Her has been complicated by anxiety, depression and hypothyroidism. She presents to L&D with complaints of leaking of clear fluid that started at 0230. She reports active movement and contractions. She denies vaginal bleeding. Chief Complaint: Active Labor, Rupture of membranes Information Provided By: Patient Age: 29 : 3 Term: 2 Pre-term: 0 Abortions: 0 Livin Care Care: Good Care Dating Final EDC: Dec 20, 2019 Final EDC by: 1st trimester (US) EGA at Admission: 39.3 Antepartum Course Diagnos(e)s hypothyroidism Height (inches): 64 Pre- weight (lbs.): 206 Admission Weight (lbs.): 233 Change in Weight (lbs.): 27 Past Medical History Past Obstetrical History #1: Gestation: 38.4 Type of Delivery: Spontaneous Vaginal Del. (04/2012) Sex of Infant: Male (7 lbs 7 oz) Complications: Yes ( hemorrhage) Past Obstetrical History #2: Past Obstetrical History: Multigravida Gestation: 39.6 Type of Delivery: Spontaneous Vaginal Del. 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 Past Medical History Medical History hypothyroidism-taking 50 mcg of Synthroid Surgical History: Appendectomy Family History Significant Family History: Hypertension, Other (Crohn's and hypothyroidism) Social History Marital Status: Family situation: Spouse/partner home Psychosocial History: Anxiety, Depression (hospitalization in 12/2012 for suicidal ideations) * Smoker: non-smoker Alcohol: Denies Drugs: denies Allergies Coded Allergies: penicillin V (Verified Allergy, Unknown, 11/18/18) unknown Medications Scheduled Levothyroxine Sodium (Levothyroxine Sodium) 50 Mcg Tablet, 50 MCG PO DAILY No.137/Iron/Folic Acd ( Vitamin Tablet) 1 Tab Tab, 1 TAB PO QHS Physical Examination Physical Examination GENERAL: Alert and oriented times three. BREAST: . ABDOMEN: Gravid and non-tender to touch. FETUS: Is vertex (VTX) by sterile vaginal examination (SVE), fetus is vertex (V TX) by Rhett. HEART RATE: Regular rate and rhythm. LUNGS: Clear to auscultation (CTA). EXTREMITIES: No edema. No clonus. Deep tendon reflexes (DTRs) + . Vital Signs/I&O Vital Signs Date Time Temp Pulse Resp B/P (MAP) Pulse Ox O2 Delivery O2 Flow Rate FiO2 12/16/19 06:31 113 131/88 (102) 12/16/19 04:27 97.8 20 Laboratory Data 24H LABS Laboratory Tests 2 12/16/19 04:42: Serology Scanned Report Hepatitis B Testing 12/16/19 05:28: Nucleated Red Blood Cells % (auto) 0.0 CBC/BMP Laboratory Tests 12/16/19 05:28 Pertinent Laboratoy Data Blood Type: A- RBC Antibody Screen: Negative HIV: Negative Hepatitis B: Negative Hepatitis C: Negative Rapid Plasma Reagin: Nonreactive Rubella: Immune Chlamydia/Gonorrhea: Negative Group B Streptococcus: Negative Glucose Tolerance Test: 127 Vaginal Examination Dilation: 4 cm Effacement: 100% Station: -2 Position: Vertex (occiput) Assessment Heart Rate (FHR): 130 Variability: Moderate Accelerations: Positive Decelerations: None Tocometer Contractions: Yes Frequency: regular Multi-drug resistant Organism: No history of MDRO Assessment/Plan Assessment IUP at 39.3 weeks gestation Category I FHR tracing GBS negative SROM Plan Admit to L&D. OOB ad alvino. Diet: clears. Group B Streptococcus (GBS) negative. Labs and intravenous (IV) per unit protocol. Counseled on Pitocin for augmentation if needed. Anesthesia consult per patient's request. Lactated Ringers (LR): Bolus 800 mL, then at 125 mL/hr. Anticipate cervical change and . C-S as appropriate. ROYAL CARDENAS CNM Dec 16, 2019 08:15
[2019-12-16] MEDS ORDERED: OXYTOCIN 30 UNITS IN 0.9% NaCl 500ML IV BAG (J2590) As Ordered ONE (13:51)
[2019-12-16] MEDS ORDERED: OXYTOCIN DRIP 30 UNITS in IV 1 EA IV SCH ×2 (14:00→17:02)
[2019-12-16] MEDS ORDERED: ACETAMINOPHEN 500 MG TAB PO ONE (14:15)
[2019-12-16] MEDS ORDERED: LR 1,000 ML IV SCH (17:02)
[2019-12-16] MEDS ORDERED: MEASLES,MUMPS,RUBELLA VACCINE INJ (MMR-II) (90707) SC SCH (17:15)
[2019-12-16] MEDS ORDERED: PROMETHAZINE 25 MG TAB PO PRN (17:15)
[2019-12-16] MEDS ORDERED: DIBUCAINE 1% OINTMENT 30GM TOP PRN (17:15)
[2019-12-16] MEDS ORDERED: DOCUSATE SODIUM 100 MG CAP PO PRN (17:15)
[2019-12-16] MEDS ORDERED: IBUPROFEN 600MG TAB PO PRN (17:15)
[2019-12-16] MEDS ORDERED: RHOGAM 300 MCG (1500 IU) INJ (J2790) IM SCH (17:15)
[2019-12-16] MEDS ORDERED: ACETAMINOPHEN TAB 650MG DOSE (2X325MG) PO PRN (17:15)
[2019-12-16] MEDS: IBUPROFEN 800 MG TAB PO PRN (17:39)
[2019-12-17] MEDS: ACETAMINOPHEN 500 MG TAB PO PRN ×3 (01:04→22:05)
[2019-12-17] MEDS: IBUPROFEN 800 MG TAB PO PRN ×2 (05:43→16:28)
[2019-12-17 06:17] VITALS: BP 133/77
[2019-12-17] MEDS: PRENATAL VITAMINS CHEWABLE TABLET PO SCH (08:25)
--- NOTE | 2019-12-17 08:43 | IPNPDOC ---
Text Note Date of Service The patient was seen on 12/17/19. NOTE PP #1 Feels well. Adequate pain management. Voiding. Desires to resume her zoloft VSS, afebrile, normotensive Breasts soft, nipples intact Fundus firm NT down 1 FB Lochia rubra light without odor Perineum intact PP #1 Desires discharge Reviewed discharge instructions. Rx zoloft 50mg. Will discharge if infant discharged. RTO 6 wks VS,Fishbone, I+O VS, Fishbone, I+O Vital Signs Date Time Temp Pulse Resp B/P (MAP) Pulse Ox O2 Delivery O2 Flow Rate FiO2 12/17/19 06:17 97.8 88 17 133/77 (95) I&O- Last 24 Hours up to 6 AM 12/17/19 05:59 Intake Total 3265 ml Output Total 550 ml Balance 2715 ml Abril Jones CNM Dec 17, 2019 08:43
[2019-12-17] MEDS: LEVOTHYROXINE 50MCG TABLET (0.05MG) PO SCH (10:22)
[2019-12-17] MEDS: SERTRALINE HCL 25 MG TABLET PO SCH (10:22)
[2019-12-17 18:00] VITALS: BP 128/84
[2019-12-18] MEDS: LEVOTHYROXINE 50MCG TABLET (0.05MG) PO SCH (05:28)
[2019-12-18 06:00] VITALS: BP 116/77
[2019-12-18] MEDS ORDERED: SERT25TA21 PO (07:01)
[2019-12-18] MEDS: PRENATAL VITAMINS CHEWABLE TABLET PO SCH (07:32)
[2019-12-18] MEDS: SERTRALINE HCL 25 MG TABLET PO SCH (07:33)
[2019-12-18] MEDS: IBUPROFEN 800 MG TAB PO PRN (08:17)
[2019-12-18] MEDS ORDERED: PILL CUTTER 1 EACH XX PRN (08:45)
[2019-12-18] MEDS ORDERED: FAMOTIDINE 20 MG TAB PO SCH (09:00)
== END 2019-12-18 12:30 | disposition home or self-care (01) | DRG 560 ==
LOC: M LDO 04:04 → M LDI 04:38 → M OBS 18:59
PROVIDERS: ADMIT Advanced Practice Midwife; ATTEND Advanced Practice Midwife
PROC: 10E0XZZ Delivery of Products of Conception, External Approach (ICD-10-PCS; principal; 2019-12-16)
PROC: 0KQM0ZZ Repair Perineum Muscle, Open Approach (ICD-10-PCS; 2019-12-16)
DX: O69.1XX0 Labor and delivery complicated by cord around neck, with compression, not applicable or unspecified (principal); O99.344 Other mental disorders complicating childbirth; F32.9 Major depressive disorder, single episode, unspecified; Z37.0 Single live birth; Z3A.39 39 weeks gestation of pregnancy; E03.9 Hypothyroidism, unspecified; O99.284 Endocrine, nutritional and metabolic diseases complicating childbirth; F41.9 Anxiety disorder, unspecified; O70.1 Second degree perineal laceration during delivery

== ENCOUNTER → 2020-03-08 | Outpatient (REF) | payer OTHER ==
[~2020-03-08] MED LIST changes: +SERT25TA21 PO
== END ==
LOC: M LABDRWAD 09:44
PROVIDERS: ATTEND Obstetrics & Gynecology
DX: E03.9 Hypothyroidism, unspecified (principal)

== ENCOUNTER → 2020-04-28 | Outpatient (REF) | payer OTHER | LOC: M SFHCWAGY 13:50 | PROVIDERS: ATTEND Obstetrics & Gynecology | DX: Z12.4 Encounter for screening for malignant neoplasm of cervix (principal) ==

== ENCOUNTER → 2020-08-07 | Outpatient (REF) | payer OTHER ==
[2020-08-08 14:04] LABS: ALBUMIN 3.6 GM/DL (3.2-5.2); ALT/SGPT 19 U/L (12-78); BILIRUBIN,TOTAL 0.2 MG/DL (0.2-1.0); BLOOD UREA NITROGEN 8 MG/DL (7-18); CALCIUM LEVEL 9.3 MG/DL (8.5-10.1); CARBON DIOXIDE LEVEL 30 MEQ/L (21-32); CHLORIDE LEVEL 107 MEQ/L (98-107); CREATININE FOR GFR 0.76 MG/DL (0.55-1.30); GLOMERULAR FILTRATION RATE > 60.0 (>60); GLUCOSE, FASTING 80 MG/DL (70-100); POTASSIUM SERUM 5.3 MEQ/L (3.5-5.1); SODIUM LEVEL 142 MEQ/L (136-145); TOTAL PROTEIN 7.5 GM/DL (6.4-8.2)
[2020-08-08 15:24] LABS: HEMATOCRIT 41.3 % (36.0-47.0); HEMOGLOBIN 12.9 g/dl (12.0-15.5); MEAN CORPUSCULAR HEMOGLOBIN 27.5 pg (27.0-33.0); MEAN CORPUSCULAR HGB CONC 31.2 g/dl (32.0-36.5); MEAN CORPUSCULAR VOLUME 88.1 fl (80.0-96.0); PLATELET COUNT, AUTOMATED 340 10^3/uL (150-450); RED BLOOD COUNT 4.69 10^6/uL (4.00-5.40); WHITE BLOOD COUNT 7.7 10^3/uL (4.0-10.0)
== END ==
LOC: M LABDRWAD 12:22
PROVIDERS: ATTEND Family Medicine
DX: E03.9 Hypothyroidism, unspecified (principal); F41.1 Generalized anxiety disorder

== ENCOUNTER → 2020-10-22 | Outpatient (CLI) | payer OTHER ==
[~2020-10-22] MED LIST changes: +BUSP5TA PO; +HYDR-3363 PO; +SERT-141 PO; +SYNT75TA PO; +VITA50005 PO
== END ==
LOC: M LABSMTC 08:25
PROVIDERS: ATTEND Anesthesiology
DX: Z01.812 Encounter for preprocedural laboratory examination (principal); Z20.822 Contact with and (suspected) exposure to COVID-19

== ENCOUNTER 2020-10-27 10:19 | Day surgery (SDC) | payer OTHER ==
[~2020-10-27] VITALS: Ht 162.6 cm; Wt 105.7 kg
[~2020-10-27 10:19] MED LIST changes: +LIDOCAINE 1% MDV 20ML VIAL SQ PRN; +LR 1,000 ML IV ONE
[2020-10-27] MEDS ORDERED: ROCURONIUM BROMIDE 50 MG/5 ML VIAL As Ordered ONE (10:40)
[2020-10-27] MEDS ORDERED: MIDAZOLAM INJ 2MG/2ML VIAL (J2250 PER 1MG) As Ordered ONE (10:40)
[2020-10-27] MEDS ORDERED: dexameTHASONE 4 MG/ML 1ML VIAL (J1100 PER 1MG) As Ordered ONE ×2 (10:40→14:29)
[2020-10-27] MEDS ORDERED: LIDOCAINE 2% 100MG/5ML SDV (FOR ANES.) As Ordered ONE (10:40)
[2020-10-27] MEDS ORDERED: ONDANSETRON 4MG/2ML VIAL As Ordered ONE (10:40)
[2020-10-27] MEDS ORDERED: KETOROLAC 60MG 2ML VIAL As Ordered ONE (10:40)
[2020-10-27] MEDS ORDERED: ACETAMINOPHEN 1000MG 100ML IV BTL (OFIRMEV) (J0131 PER 10MG) As Ordered ONE (10:40)
[2020-10-27] MEDS ORDERED: propofoL 200 MG/20 ML VIAL As Ordered ONE (10:40)
[2020-10-27] MEDS ORDERED: SUGAMMADEX SODIUM 500 MG/5 ML VIAL (BRIDION) As Ordered ONE (10:40)
[2020-10-27] MEDS ORDERED: fentaNYL 100 MCG/2 ML INJECTION (J3010) As Ordered ONE (10:41)
[2020-10-27 11:01] LABS: HEMATOCRIT 39.6 % (36.0-47.0); MEAN CORPUSCULAR HEMOGLOBIN 27.4 pg (27.0-33.0); MEAN CORPUSCULAR HGB CONC 32.8 g/dl (32.0-36.5); MEAN CORPUSCULAR VOLUME 83.5 fl (80.0-96.0); PLATELET COUNT, AUTOMATED 266 10^3/uL (150-450); RED BLOOD COUNT 4.74 10^6/uL (4.00-5.40); WHITE BLOOD COUNT 6.3 10^3/uL (4.0-10.0)
[2020-10-27] MEDS ORDERED: BUPIVACAINE HCL 0.25% 10ML VIAL As Ordered ONE (11:12)
[2020-10-27] MEDS ORDERED: SILVER NITRATE APPLICATOR As Ordered ONE (11:12)
[2020-10-27 11:27] LABS: HCG, SERUM QUALITATIVE NEGATIVE (NEGATIVE)
--- NOTE | 2020-10-27 12:39 | ROOPDOC ---
[facility] Report Of Operation Report of Operation Date of procedure: 10/27/2020 Preoperative diagnosis: Satisfied parity. Postoperative diagnosis: Same Procedure: Laparoscopic bilateral salpingectomy and lysis of adhesions Anesthesia: Gen. endotracheal Estimated blood loss 5 mL IV fluids replaced 400 mL lactated Ringer's Drains: In and out catheter 50 mL of urine Complications: None Preoperative antibiotics: None indicated Specimens: Bilateral fallopian tubes Intraoperative findings: Normal size, shape, contour of the uterus. Normal adnexa/ovaries bilaterally. Minimal pelvic adhesions Procedure: The patient was counseled and consented on the risks, benefits, indications, and alternatives of the procedure. Informed consent was obtained. She was taken to the operating room with an IV running. She was placed on the operating table in the dorsal supine position. Gen. anesthesia was administered and the airway was secured without any difficulty. A timeout was performed per protocol. She was prepared and draped in the normal sterile fashion. Attention was turned to the pelvis. The bladder was drained with in and out sterile catheter. A speculum was placed into the vagina with good visualization of the cervix. A single- tooth tenaculum was placed on the anterior lip of the cervix and downward traction was applied. The cervix was sequentially dilated with Boni dilators up to a #16. A ZUMI uterine manipulator was placed without any difficulty. The single-tooth tenaculum was removed. The tenaculum sites were noted to be hemostatic. A sterile glove switch was performed. Attention was turned to the abdomen. A 5mm umbilical incision was made with the 11 blade. Through this incision, a Veress needle was placed into the intraperitoneal cavity. Intraperitoneal placement was confirmed with ease of flow of normal saline, a positive drop test and no return on aspiration. The opening pressure was 2 mmHg. The abdomen was insufflated with 2 L of CO2. The Veress needle was removed. A 5 mm laparoscopic trocar was placed under direct visualization without any difficulty, and intraperitoneal placement was confirmed. No incidental bleeding or injury was evident. The patient was placed in steep Trendelenburg. 2 additional laparoscopic port sites were placed through 5 mm incisions in the lower left quadrant. Each trocar/cannula was placed under direct visualization without any difficulty, incidental bleeding or injury. Attention was turned to the right fallopian tube. The right fallopian tube was followed out to the fimbriated end, grasped and elevated. The underlying mesosalpinx was sequentially clamped, coagulated and transected, until the level of the cornu was reached. At this level, the fallopian tube was clamped, coagulated and transected, thus amputating the fallopian tube. The fallopian tube was brought through the cannula without any difficulty and sent to pathology for permanent section. Attention was turned to the left fallopian tube. The left fallopian tube was followed out to the fimbriated end, grasped and elevated. The underlying mesosalpinx was sequentially clamped, coagulated and transected, until the level of the cornu was reached. At this level the fallopian tube was clamped, coagulated and transected, thus amputating the fallopian tube. The fallopian tube was brought to the cannula without any difficulty and sent to pathology for permanent section. Anterior abdominal wall omental adhesions in the right lower quadrant were taken down with the LigaSure device. The bowel was not involved with this dissection. Excellent hemostasis was noted. Both right and left surgical sites were noted to be completely hemostatic. The gas was released from the abdomen. The patient was taken out of Trendelenburg position. The cannulas were removed. The skin incisions were closed with 4-0 Monocryl in subcuticular fashion and reinforced with Dermabond. The uterine manipulator was removed, the vagina was noted to be clear of any sponge or instrument. Sponge, needle and instrument counts were correct per protocol. The patient tolerated the entire procedure very well. She was transferred to the PACU in good and stable condition. DO NANY Thomson JONATHAN R. DO Oct 27, 2020 12:39
[2020-10-27] MEDS ORDERED: COLA100C5 PO (12:40)
[2020-10-27] MEDS ORDERED: IBUP80TA PO (12:40)
[2020-10-27] MEDS ORDERED: OXYC1TAB23 PO (12:41)
[2020-10-27] MEDS ORDERED: LR 1,000 ML IV SCH ×2 (12:55→13:00)
[2020-10-27] MEDS ORDERED: fentaNYL 100 MCG/2 ML INJECTION (J3010) IV PRN (13:00)
[2020-10-27] MEDS ORDERED: PERCOCET 5MG/325MG TAB PO PRN (13:00)
[2020-10-27] MEDS ORDERED: METOCLOPRAMIDE INJ 10MG/2ML VIAL (J2765 PER 1) IV PRN (13:00)
[2020-10-27] MEDS ORDERED: ONDANSETRON 4MG/2ML VIAL IV PRN (13:00)
[2020-10-27] MEDS ORDERED: oxyCODONE 5MG TAB PO PRN (13:10)
[2020-10-27 14:25] VITALS: BP 117/70
== END 2020-10-27 14:25 | disposition home or self-care (01) ==
LOC: M SDC 10:19
PROVIDERS: ATTEND Obstetrics & Gynecology
DX: Z30.2 Encounter for sterilization (principal); K66.0 Peritoneal adhesions (postprocedural) (postinfection); Z88.0 Allergy status to penicillin; E03.9 Hypothyroidism, unspecified; K21.9 Gastro-esophageal reflux disease without esophagitis; F41.9 Anxiety disorder, unspecified; F32.9 Major depressive disorder, single episode, unspecified; Z79.899 Other long term (current) drug therapy
CPT/HCPCS: 36415; 58661; 84703; 85027; 86850; 86900; 86901; 88302; J0131; J1100; J1885; J2250; J2405; J3010

== ENCOUNTER 2021-02-26 09:46 | Emergency (ER) | payer OTHER ==
[~2021-02-26] VITALS: Ht 162.6 cm; Wt 102.7 kg
[~2021-02-26 09:46] MED LIST changes: +COLA100C5 PO; +ERGO500029 PO; +IBUP80TA PO; -LIDOCAINE 1% MDV 20ML VIAL SQ PRN; -LR 1,000 ML IV ONE; +OXYC1TAB23 PO; -VITA50005 PO
[2021-02-26] MEDS ORDERED: IBUP200T45 PO (10:02)
[2021-02-26] MEDS ORDERED: TRAZ-252 (10:02)
[2021-02-26 10:48] LABS: BASO # 0.1 10^3/uL (0.0-0.2); BASO % 0.9 % (0.0-1.0); EOS # 0.2 10^3/uL (0.0-0.5); EOS % 4.2 % (0.0-3.0); HEMATOCRIT 39.9 % (36.0-47.0); HEMOGLOBIN 13.1 g/dl (12.0-15.5); LYMPH # 1.8 10^3/uL (1.5-5.0); LYMPH % 31.4 % (24.0-44.0); MEAN CORPUSCULAR HEMOGLOBIN 26.8 pg (27.0-33.0); MEAN CORPUSCULAR HGB CONC 32.8 g/dl (32.0-36.5); MEAN CORPUSCULAR VOLUME 81.8 fl (80.0-96.0); MONO # 0.4 10^3/uL (0.0-0.8); MONO % 7.4 % (2.0-8.0); NEUTROPHILS # 3.2 10^3/uL (1.5-8.5); NEUTROPHILS % 55.7 % (36.0-66.0); PLATELET COUNT, AUTOMATED 267 10^3/uL (150-450); RED BLOOD COUNT 4.88 10^6/uL (4.00-5.40); WHITE BLOOD COUNT 5.7 10^3/uL (4.0-10.0)
[2021-02-26 11:28] LABS: ALBUMIN 3.8 GM/DL (3.2-5.2); ALT/SGPT 24 U/L (12-78); BILIRUBIN,DIRECT < 0.1 MG/DL (0.0-0.2); BILIRUBIN,TOTAL 0.2 MG/DL (0.2-1.0); BLOOD UREA NITROGEN 8 MG/DL (7-18); CALCIUM LEVEL 8.9 MG/DL (8.5-10.1); CARBON DIOXIDE LEVEL 27 MEQ/L (21-32); CHLORIDE LEVEL 108 MEQ/L (98-107); GLOMERULAR FILTRATION RATE > 60.0 (>60); GLUCOSE, FASTING 96 MG/DL (70-100); LIPASE 110 U/L (73-393); POTASSIUM SERUM 4.2 MEQ/L (3.5-5.1); SODIUM LEVEL 139 MEQ/L (136-145); TOTAL PROTEIN 7.1 GM/DL (6.4-8.2)
--- NOTE | 2021-02-26 11:36 | REP ---
INDICATION: back pain radiating to abdomen, micro hematuria. COMPARISON: CT 11/19/2018. TECHNIQUE: Real-time sonographic evaluation of the kidneys is performed. FINDINGS: Renal cortical echogenicity pattern is normal bilaterally and contours are smooth. There is no evidence of hydronephrosis, cyst, mass, or calculus in either kidney. The right kidney measures 10.0 x 5.0 x 4.0 cm. Left renal dimensions are 10.0 x 4.8 x 4.0 cm. The urinary bladder is unremarkable. Ureteral jets are visualized in the urinary bladder with Doppler color evaluation. Multiple gallstones are incidentally noted in the gallbladder. IMPRESSION: Negative renal ultrasound. Multiple gallstones are incidentally noted in the gallbladder. <Electronically signed by Nawaf Pineda > 02/26/21 [id number]
[2021-02-26 12:16] VITALS: BP 103/61
== END 2021-02-26 12:17 | disposition home or self-care (01) ==
LOC: M ED 09:46
DX: K80.50 Calculus of bile duct without cholangitis or cholecystitis without obstruction (principal); M54.5 Low back pain; E03.9 Hypothyroidism, unspecified; F41.9 Anxiety disorder, unspecified; F32.9 Major depressive disorder, single episode, unspecified; Z79.899 Other long term (current) drug therapy; Z88.0 Allergy status to penicillin; Z88.8 Allergy status to other drugs, medicaments and biological substances

== ENCOUNTER → 2021-03-22 | Outpatient (CLI) | payer OTHER ==
[~2021-03-22] MED LIST changes: +IBUP200T45 PO; +TRAZ-252
--- NOTE | 2021-03-22 08:24 | REP ---
INDICATION: SYSTEMATIC GALLSTONES. COMPARISON: Comparison CT study November 19, 2018. Comparison renal sonography February 26, 2021. TECHNIQUE: Right upper quadrant sonogram. FINDINGS: Scanning through the right upper quadrant of the abdomen demonstrates a normal sized, thin-walled gallbladder containing multiple shadowing mobile calculi as seen on recent sonography. No pericholecystic fluid or wall thickening is seen. The intraluminal gallstones are fairly large measuring up to 1 cm.. Common bile duct is normal measuring 0.5 cm in greatest diameter. No focal liver lesion is seen. Liver size is normal. No pancreatic abnormality is observed. No right renal abnormality is seen. There is no evidence of ascites. The right kidney measures 10.2 x 5.5 x 4.0 cm. IMPRESSION: Cholelithiasis. Otherwise negative right upper quadrant sonography. <Electronically signed by Maximiliano Mock > 03/22/21 [id number]
== END ==
LOC: M RAD 07:44
PROVIDERS: ATTEND Surgery
DX: K80.20 Calculus of gallbladder without cholecystitis without obstruction (principal)

== ENCOUNTER → 2021-04-07 | Outpatient (CLI) | payer OTHER | LOC: M LABSMTC 11:24 | PROVIDERS: ATTEND Anesthesiology | DX: Z01.812 Encounter for preprocedural laboratory examination (principal); Z20.822 Contact with and (suspected) exposure to COVID-19 ==

== ENCOUNTER 2021-04-12 08:35 | Day surgery (SDC) | payer OTHER ==
[~2021-04-12] VITALS: Ht 162.6 cm; Wt 101.7 kg
[~2021-04-12 08:35] MED LIST changes: +KETOROLAC 60MG 2ML VIAL As Ordered ONE; +LIDOCAINE 1% MDV 20ML VIAL SQ PRN; +LIDOCAINE 2% 100MG/5ML SDV (FOR ANES.) As Ordered ONE; +LR 1,000 ML IV ONE; +MIDAZOLAM INJ 2MG/2ML VIAL (J2250 PER 1MG) As Ordered ONE; +ONDANSETRON 4MG/2ML VIAL As Ordered ONE; +ROCURONIUM BROMIDE 50 MG/5 ML VIAL As Ordered ONE; +SUGAMMADEX SODIUM 500 MG/5 ML VIAL (BRIDION) As Ordered ONE; +dexameTHASONE 4 MG/ML 1ML VIAL (J1100 PER 1MG) As Ordered ONE; +fentaNYL 100 MCG/2 ML INJECTION (J3010) As Ordered ONE; +propofoL 200 MG/20 ML VIAL As Ordered ONE
--- OUTSIDE RECORDS SUMMARY | 2021-04-12 08:39 | CCD | Continuity of Care Document ---
Author Author Evelyn VARNER M.D. Organization Unknown Address [address], [address] [place] [address] Phone [phone] Care Team Providers Care Planer Off Bearer Name Role Phone AUTM Unavailable Dmitry Wiggins AUTM [phone] Aaron Daugherty D.O. AUTM [phone] Problems Description No Information Available Social History Type Date Description Comments Sex Unknown ETOH Use Denies alcohol use Tobacco Use Start: Unknown Non Smoker Recreational Drug Use Denies Drug Use Exercise Type/Frequency Does not exercise MUSHTAQ: 12/20/2019 Estimated Date of Delivery Based on 1st Ultrasound MUSHTAQ: 05/04/2017 Estimated Date of Delivery Based on 1st Ultrasound MUSHTAQ: 07/29/2012 Estimated Date of Delivery Based on 1st Ultrasound Allergies, Adverse Reactions, Alerts Active Allergies Criticality Reaction | Severity Comments Date Testosterone Unable to assess criticality 09/26/2011 Penicillin Unable to assess criticality 09/26/2011 Medications Active Medications SIG Qnty Indications Ordering Provide r Date Buspirone HCL 5mg Tablets Take One Tablet By Mouth Twice A Day Unknown Levothyroxine Sodium 75mcg Tablets Take One Tablet By Mouth Once Daily Unknown 0 Sertraline HCL 100mg Tablets Take One Tablet By Mouth Every Day Unknown Trazodone HCL 50mg Tablets Take One Tablet By Mouth AT Bedtime as Needed Unknown Immunizations CPT Code Status Date Vaccine Lot # [id number] Given 03/12/2017 Tetanus, Diphthe asia Toxoids/Acellular Pertussis Vaccine 7 Or > Vital Signs Date Vital Result Comment 03/19/2021 8:59am BP Systolic 120 mmHg BP Diastolic 80 mmHg Body Temperature 98.4 F Height 64 inches 5'4" Weight 225.00 lb BMI (Body Mass Index) 38.6 kg/m2 [place] Body Weight 120 lb Weight 102.060 kg BSA (Body Surface Area) 2.06 m2 02/09/2019 8:55am BP Systolic 124 mmHg BP Diastolic 76 mmHg Height 64 inches 5'4" Weight 214.00 lb BMI (Body Mass Index) 36.7 kg/m2 [place] Body Weight 120 lb Weight 97.070 kg BSA (Body Surface Area) 2.01 m2 Results Description No Information Available Procedures Description No Information Available Medical Devices Description No Information Available Encounters Description No Information Available Assessments Description No Information Available Plan of Treatment 02/09/2019 - Abril Jones, MSN, CNM* E03.9 Hypothyroidism, unspecified* Comments:* Continue thyroid manageemnt with primaryReviewed optimal timing for IC based on only one menses. Rec day 14-18.Will RTO 2 months, after partner has specimen. Info regarding semen anaylsis reviewed. * Z31.61 Procreative counseling and advice using natural family plann Functional Status Description No Information Available Mental Status Description No Information Available Referrals Refer to Reason for Referral Status Appt Date Mart Varner M.D. GALLSTONES MULTIPLE Closed 03/19 [facility] [address] [address] [phone]
--- OUTSIDE RECORDS SUMMARY | 2021-04-12 08:39 | CCD ---
Author Author [facility] Organization [facility] Address Unknown Phone Unavailable Care Team Providers Care Pelletizer Operator Name Role Phone Camila Efraín Unavailable PROBLEMS Type Condition ICD9-CM Code [id number] Code Onset Dates Condition S tatus W/U Status Risk SNOMED Code Notes Problem Acquired hypothyroidism E03.9 Active confirmed 765489285 Problem Hypothyroid E03.9 Active confirmed 33220956 Problem Amenorrhea 626.0 Active confirmed 52798693 Problem Contraceptive management V25.9 Active confirmed 602018881 Problem Encounter for insertion of intrauterine contraceptive andreas ce V25.11 Active confirmed 95466310 Problem Supervision of other normal Z34.80 Ac tive confirm 617508701 ALLERGIES Allergen (clinical drug ingredient) Drug/Non Drug Allergy do cumented on EMR Reaction Allergy Type Onset Date Status Steroids Steroids Hives Non Drug Allergy Active Penicillin (For Allergies Use Only) Rash Drug Allerg y Active Seasonal Unknown Non Drug Allergy Active ENCOUNTERS from 1989 to 2021-02-26 Encounter Location Date Provider Diagnosis [facility] [address] [address] [place] [address] Jan, Efraín Jensen IMMUNIZATIONS Vaccine Route Administration Date Status RHo D Immune Globulin 300mcg/1.5mL RhoGAM IM Intramuscular October 08, 2019 Administered TDAP 0.5mL (Boostrix) IM Intramuscular October 22, 2019 Administe red SOCIAL HISTORY Tobacco Use: Social History Observation Description Date Details (start date - stop date) Never Smoker Sex Assigned At : Social History Observation Description Sex Assigned At Unknown Education: Question Answer Notes Level of Education: High School Tobacco Use: Question Answer Notes Are you a: never smoker never smoker REASON FOR REFERRAL No Information VITAL SIGNS No information MEDICATIONS Medication SIG (Take, Route, Frequency, Duration) Notes Start Da te End Date Status Prozac 20 20mg 1 tablet oral once a day Not-Taking Claritin 10 MG 1 tablet Orally Once a day for 30 day(s) Not-Taking Sprintec 28 0.25-35 MG-MCG 1 tablet Orally Once a day for 90 day s 30 Mar, 2020 Not-Taking Zoloft 50 MG 1 tablet Orally Once a day for 30 day(s) 16 2019 Not-Taking Zoloft 100 MG 1 tablet Orally Once a day for 30 day(s) Mar, Active Ondansetron HCl 4 MG 1 tablet orally prn Not-Taking 28-0.8 MG as directed Orally stopped Jul, Not-Taking risperiDONE 0.5 MG 1 tablet Orally Once a day for 30 day(s) Not-Taking Synthroid 25 MCG 1 tablet in the morning on a n empty stomach Orally Once a day for 30 day(s) Mar, Active Levothyroxine Sodium 50 MCG 1 tablet in the morning on an empty stomach Orally Once a day Active PROCEDURES No Information RESULTS No Results REASON FOR VISIT pain MEDICAL (GENERAL) HISTORY Type Description Date Medical History depression Medical History anxiety Medical History Hypothyroidism Surgical History appendectomy Hospitalization History suicidal ideations 01/09 Hospitalization History childbirth 05/11 Goals Section No Information Health Concerns No Information MEDICAL EQUIPMENT No Information MENTAL STATUS No Information FUNCTIONAL STATUS No Information ASSESSMENTS No Information PLAN OF TREATMENT No Information Insurance Providers Payer Name Payer Address Payer Phone Insured Name Patient Relati onship to Insured Coverage Start Date Coverage End Date [facility] [address] [facility] [id number] PASTOR BAIG self
--- OUTSIDE RECORDS SUMMARY | 2021-04-12 08:39 | CCD ---
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 Name Role Phone Mcknight, Jeni PRODUCTION WORKER Unavailable Unavailable Mcknight, Jeni PRODUCTION WORKER Unavailable Unavailable Mcknight, Jeni PRODUCTION WORKER Unavailable Unavailable Mcknight, Jeni PRODUCTION WORKER Unavailable Unavailable Mcknight, Jeni PRODUCTION WORKER Unavailable Unavailable Mcknight, Jeni PRODUCTION WORKER Unavailable Unavailable Mcknight, Jeni PRODUCTION WORKER Unavailable Unavailable Mcknight, Jeni PRODUCTION WORKER Unavailable Unavailable Mcknight, Jeni PRODUCTION WORKER Unavailable Unavailable Mcknight, Jeni PRODUCTION WORKER Unavailable Unavailable Mcknight, Jeni PRODUCTION WORKER Unavailable Unavailable Mcknight, Jeni PRODUCTION WORKER Unavailable Unavailable Mcknight, Jeni PRODUCTION WORKER Unavailable Unavailable [place], Keren PRODUCTION WORKER Unavailable Unavailable [place], Keren PRODUCTION WORKER Unavailable Unavailable Efren, Keren PRODUCTION WORKER Unavailable Unavailable Efren, Keren PRODUCTION WORKER Unavailable Unavailable Efren, Keren PRODUCTION WORKER Unavailable Unavailable [place], Keren PRODUCTION WORKER Unavailable Unavailable Efren, Keren PRODUCTION WORKER Unavailable Unavailable [place], Keren PRODUCTION WORKER Unavailable Unavailable Efren, Keren PRODUCTION WORKER Unavailable Unavailable Efren, Keren PRODUCTION WORKER Unavailable Unavailable Efren, Keren PRODUCTION WORKER Unavailable Unavailable [place], Keren PRODUCTION WORKER Unavailable Unavailable [place], Keren PRODUCTION WORKER Unavailable Unavailable Renetta Daugherty DO Unavailable Unavailable Carguello, J Aaron DO Unavailable Unavailable Carguello J Aaron DO Unavailable Unavailable Carguello J Aaron DO Unavailable Unavailable Carguello J Aaron DO Unavailable Unavailable Carguello J Aaron DO Unavailable Unavailable Carguello J Aaron DO Unavailable Unavailable Carguello J Aaron DO Unavailable Unavailable Carguello, J Aaron DO Unavailable Unavailable Carguello, J Aaron DO Unavailable Unavailable Carguello, J Aaron DO Unavailable Unavailable Carguello, J Aaron DO Unavailable Unavailable Carguello J Aaron DO Unavailable Unavailable Carguello J Aaron DO Unavailable Unavailable Carguello, J Aaron DO Unavailable Unavailable Carguello, J Aaron DO Unavailable Unavailable Carguello, J Aaron DO Unavailable Unavailable Carguello J Aaron DO Unavailable Unavailable Carguello, J Aaron DO Unavailable Unavailable Carguello, J Aaron DO Unavailable Unavailable Carguello J Aaron DO Unavailable Unavailable Carguello, J Aaron DO Unavailable Unavailable Carguello, J Aaron DO Unavailable Unavailable Carguello J Aaron DO Unavailable Unavailable Carguello J Aaron DO Unavailable Unavailable Carguello J Aaron DO Unavailable Unavailable Carguello J Aaron DO Unavailable Unavailable Carguello J Aaron DO Unavailable Unavailable Carguello J Aaron DO Unavailable Unavailable Carguello J Aaron DO Unavailable Unavailable Carguello J Aaron DO Unavailable Unavailable Carguello J Aaron DO Unavailable Unavailable Carguello J Aaron DO Unavailable Unavailable Carguello J Aaron DO Unavailable Unavailable Carguello J Aaron DO Unavailable Unavailable Carguello J Aaron DO Unavailable Unavailable Carguello J Aaron DO Unavailable Unavailable Carguello J Aaron DO Unavailable Unavailable Carguello J Aaron DO Unavailable Unavailable Carguello J Aaron DO Unavailable Unavailable Carguello J Aaron DO Unavailable Unavailable Carguello J Aaron DO Unavailable Unavailable Carguello J Aaron DO Unavailable Unavailable Carguello J Aaron DO Unavailable Unavailable Carguello J Aaron DO Unavailable Unavailable Carguello J Aaron DO Unavailable Unavailable Carguello J Aaron DO Unavailable Unavailable Carguello J Aaron DO Unavailable Unavailable Carguello J Aaron DO Unavailable Unavailable Carguello J Aaron DO Unavailable Unavailable Carguello J Aaron DO Unavailable Unavailable Carguello J Aaron DO Unavailable Unavailable CarguelloRenetta Aaron DO Unavailable Unavailable CarguelloRenetta Aaron DO Unavailable Unavailable CarguelloRenetta Aaron DO Unavailable Unavailable CarguelloRenetta Aaron DO Unavailable Unavailable CarguelloRenetta Aaron DO Unavailable Unavailable CarguelloRenetta Aaron DO Unavailable Unavailable CarguelloRenetta Aaron DO Unavailable Unavailable CarguelloRenetta Aaron DO Unavailable Unavailable CarguelloRenetta Aaron DO Unavailable Unavailable CarguelloRenetta Aaron DO Unavailable Unavailable CarguelloRenetta Aaron DO Unavailable Unavailable CarguelloRenetta Aaron DO Unavailable Unavailable Carguello J Aaron DO Unavailable Unavailable CarguelloRenetta Aaron DO Unavailable Unavailable CarguelloRenetta Aaron DO Unavailable Unavailable CarguelloRenetta Aaron DO Unavailable Unavailable CarguelloRenetta Aaron DO Unavailable Unavailable CarguelloRenetta Aaron DO Unavailable Unavailable CarguelloRenetta Aaron DO Unavailable Unavailable CarguelloRenetta Aaron DO Unavailable Unavailable CarguelloRenetta Aaron DO Unavailable Unavailable CarguelloRenetta Aaron DO Unavailable Unavailable CarguelloRenetta Aaron DO Unavailable Unavailable CarguelloRenetta Aaron DO Unavailable Unavailable CarguelloRenettarick DO Unavailable Unavailable CarguelloRenetta Aaron DO Unavailable Unavailable CarguelloRenetta Aaron DO Unavailable Unavailable CarguelloRenetta Aaron DO Unavailable Unavailable CarguelloRenetta Aaron DO Unavailable Unavailable CarguelloRenetta Aaron DO Unavailable Unavailable CarguelloRenetta Aaron DO Unavailable Unavailable CarguelloRenetta Aaron DO Unavailable Unavailable CarguelloRenetta Aaron DO Unavailable Unavailable CarguelloRenetta Aaron DO Unavailable Unavailable CarguelloRenetta Aaron DO Unavailable Unavailable CarguelloRenetta Aaron DO Unavailable Unavailable OLIVER Cm, Fanny Unavailable Jed, A Kylie DDS Unavailable Unavailable Jed, A Kylie DDS Unavailable Unavailable Jed, A Kylie DDS Unavailable Unavailable Jed, A Kylie DDS Unavailable Unavailable NickguRenetta kidd Aaron DO Unavailable Unavailable CarguelloRenetta Aaron DO Unavailable Unavailable CarguelloRenetta Aaron DO Unavailable Unavailable CarguelloRenetta Aaron DO Unavailable Unavailable CarguelloRenetta Aaron DO Unavailable Unavailable CarguelloRenetta Aaron DO Unavailable Unavailable CarguelloRenetta Aaron DO Unavailable Unavailable CarguelloRenetta Aaron DO Unavailable Unavailable Carguello J Aaron DO Unavailable Unavailable Carguello J Aaron DO Unavailable Unavailable Carguello J Aaron DO Unavailable Unavailable Carguello J Aaron DO Unavailable Unavailable Carguello J Aaron DO Unavailable Unavailable Carguello J Aaron DO Unavailable Unavailable Carguello J Aaron DO Unavailable Unavailable Carguello, J Aaron DO Unavailable Unavailable Carguello, J Aaron DO Unavailable Unavailable Carguello, J Aaron DO Unavailable Unavailable Carguello, J Aaron DO Unavailable Unavailable Carguello J Aaron DO Unavailable Unavailable Carguello J Aaron DO Unavailable Unavailable Carguello J Aaron DO Unavailable Unavailable Carguello, J Aarno DO Unavailable Unavailable Carguello J Aaron DO Unavailable Unavailable Carguello, J Aaron DO Unavailable Unavailable Carguello J Aaron DO Unavailable Unavailable Carguello, J Aaron DO Unavailable Unavailable Carguello, J Aaron DO Unavailable Unavailable Carguello, J Aaron DO Unavailable Unavailable Carguello J Aaron DO Unavailable Unavailable Carguello J Aaron DO Unavailable Unavailable Carguello J Aaron DO Unavailable Unavailable Carguello J Aaron DO Unavailable Unavailable Carguello J Aaron DO Unavailable Unavailable Carguello J Aaron DO Unavailable Unavailable Carguello J Aaron DO Unavailable Unavailable Carguello J Aaron DO Unavailable Unavailable Carguello J Aaron DO Unavailable Unavailable Carguello, J Aaron DO Unavailable Unavailable Carguello, J Aaron DO Unavailable Unavailable Carguello, J Aaron DO Unavailable Unavailable Carguello J Aaron DO Unavailable Unavailable Carguello J Aaron DO Unavailable Unavailable Carguello J Aaron DO Unavailable Unavailable Carguello J Aaron DO Unavailable Unavailable Carguello J Aaron DO Unavailable Unavailable Carguello J Aaron DO Unavailable Unavailable Carguello J Aaron DO Unavailable Unavailable Carguello J Aaron DO Unavailable Unavailable Carguello J Aaron DO Unavailable Unavailable Carguello J Araon DO Unavailable Unavailable Carguello J Aaron DO Unavailable Unavailable Carguello J Aaron DO Unavailable Unavailable Carguello J Aaron DO Unavailable Unavailable Carguello J Aaron DO Unavailable Unavailable Carguello J Aaron DO Unavailable Unavailable Carguello J Aaron DO Unavailable Unavailable Carguello J Aaron DO Unavailable Unavailable Carguello, J Aaron DO Unavailable Unavailable Carguello, J Aaron DO Unavailable Unavailable Carguello, J Aaron DO Unavailable Unavailable Carguello, J Aaron DO Unavailable Unavailable Carguello, J Aaron DO Unavailable Unavailable Carguello, J Aaron DO Unavailable Unavailable Carguello, J Aaron DO Unavailable Unavailable Carguello, J Aaron DO Unavailable Unavailable Carguello, J Aaron DO Unavailable Unavailable Carguello, J Aaron DO Unavailable Unavailable Carguello, J Aaron DO Unavailable Unavailable Carguello, J Aaron DO Unavailable Unavailable Carguello, J Aaron DO Unavailable Unavailable Carguello, J Aaron DO Unavailable Unavailable Carguello, J Aaron DO Unavailable Unavailable Carguello, J Aaron DO Unavailable Unavailable Carguello, J Aaron DO Unavailable Unavailable Carguello, J Aaron DO Unavailable Unavailable Carguello, J Aaron DO Unavailable Unavailable Carguello, J Aaron DO Unavailable Unavailable Carguello, J Aaron DO Unavailable Unavailable Carguello, J Aaron DO Unavailable Unavailable Carguello, J Aaron DO Unavailable Unavailable Carguello, J Aaron DO Unavailable Unavailable Carguello, J Aaron DO Unavailable Unavailable Carguello, J Aaron DO Unavailable Unavailable Carguello, J Aaron DO Unavailable Unavailable Carguello, J Aaron DO Unavailable Unavailable Carguello, J Aaron DO Unavailable Unavailable Carguello, J Aaron DO Unavailable Unavailable Barton, Mahanoy Plane Cira Unavailable Unavailable Barton, Mahanoy Plane Cira Unavailable Unavailable Barton, Mahanoy Plane Cira Unavailable Unavailable Barton, Mahanoy Plane Cira Unavailable Unavailable Barton, Mahanoy Plane Cira Unavailable Unavailable Barton, Mahanoy Plane Cira Unavailable Unavailable Barton, Mahanoy Plane Cria Unavailable Unavailable Barton, Mahanoy Plane Cira Unavailable Unavailable Barton, Mahanoy Plane Cira Unavailable Unavailable Barton, Mahanoy Plane Cira Unavailable Unavailable Barton, Mahanoy Plane Cira Unavailable Unavailable Barton, Mahanoy Plane Cira Unavailable Unavailable Barton, Mahanoy Plane Cira Unavailable Unavailable Re-disclosure Warning The records that you are about to access may contain information from federally-assisted alcohol or drug abuse programs. If such information is present, then the following federally mandated warning applies: This information has been disclosed to you from records protected by federal confidentiality rules (42 CFR part 2). The federal rules prohibit you from making any further disclosure of this information unless further disclosure is expressly permitted by the written consent of the person to whom it pertains or as otherwise permitted by 42 CFR part 2. A general authorization for the release of medical or other information is NOT sufficient for this purpose. The Federal rules restrict any use of the information to criminally investigate or prosecute any alcohol or drug abuse patient.The records that you are about to access may contain highly sensitive health information, the redisclosure of which is protected by Article 27-F of the [facility] Public Health law. If you continue you may have access to information: Regarding HIV / AIDS; Provided by facilities licensed or operated by the [facility] Office of Mental Health; or Provided by the [facility] Office for People With Developmental Disabilities. If such information is present, then the following [facility] mandated warning applies: This information has been disclosed to you from confidential records which are protected by state law. State law prohibits you from making any further disclosure of this information without the specific written consent of the person to whom it pertains, or as otherwise permitted by law. Any unauthorized further disclosure in violation of state law may result in a fine or residential sentence or both. A general authorization for the release of medical or other information is NOT sufficient authorization for further disc losure. Allergies and Adverse Reactions Type Description Substance Reaction Status Data Source(s ) Allergy to substance Allergy to substance Allergy to substance [facility] ([facility]) Allergy to substance Allergy to substance Allergy to substance [place] ([facility]) Drug Allergy Drug Allergy NKDA MEDENT ([facility], [facility]) Family History Family Member Name Family Member Gender Family Member Status Date o f Status Description Data Source(s) Unknown Unknown Problem MEDENT ([facility]) Unknown Unknown Problem MEDENT ([facility] Unknown Unknown Encounters Encounter Providers Location Date Indications Data Source(s ) Outpatient Attender: Aaron Daugherty DO 03/28/2021 10:28 :00 AM EDT Lab [facility] Lab Unknown [address] [address] 02/26/2021 12:00:00 AM EDT eCW1 ([facility]) Outpatient<td ID="encounterTypeDescripti onID0">Primary Care Telehealth FaceTime</td><td>Aaron Daugherty DO</td><td>[facility]</td><td>01/09/2021</td><td>10:50AM</td><td>11:27AM</td><td><content ID="encounterDiagnosisID0-0">Depression</content>, <content ID="encounterDiagnosisID0-1">Generalized Anxiety Disorder</content>, <content ID="encounterDiagnosisID0-2">Hypothyroidism</content>, <content ID="encounterDiagnosisID0-3">Vitamin D Deficiency</content></td> Attender: Aaron Daugherty DO [facility] 01/09/2021 10:50:00 AM EDT - 01/09/2021 11:27:00 AM EDT Vitamin D DeficiencyHypothyroidismGenera lized Anxiety DisorderDepression [facility] ([facility]) Vitamin D Deficiency Hypothyroidism Generalized Anxiety Disorder Depression Unknown<td ID="encounterTypeDescriptionI D0">Chart Update</td><td>Fanny Cm RN</td><td></td><td>11/23/2020</td><td>2:55PM</td><td>11:59PM</td><td></td> Attender: Fanny Cm RN 11/23/2020 02:55:00 PM EDT - 11/23/2020 11:59:00 PM EDT [facility] ([facility]) Outpatient<td ID="encounterTypeDescripti onID0">Primary Care Telehealth FaceTime</td><td>Aaron Daugherty DO</td><td>[facility]</td><td>11/23/2020</td><td>10:50AM</td><td>12:12PM</td><td><content ID="encounterDiagnosisID0-0">Hypothyroidism</content>, <content ID="encounterDiagnosisID0-1">Generalized Anxiety Disorder</content>, <content ID="encounterDiagnosisID0-2">Depression</content>, <content ID="encounterDiagnosisID0-3">Vitamin D Deficiency</content>, <content ID="encounterDiagnosisID0-4">Primary Insomnia</content></td> Attender: Aaron Daugherty DO [facility] 11/23/2020 10:50:00 AM EDT - 11/23/2020 12:12:06 PM EDT Primary InsomniaVitamin D DeficiencyGene ralized Anxiety DisorderHypothyroidismDepression [facility] ([facility]) Primary Insomnia Vitamin D Deficiency Generalized Anxiety Disorder Hypothyroidism Depression Outpatient Attender: Aaron Daugherty DO 11/14/2020 10:15 :00 AM EDT Lab [facility] [place] [place] [address] [address] 11/10/2020 12:00:00 AM EDT eCW1 ([facility]) LEEANN RameyC: [address] [place] [address], Ph. Attender: Cira Barton [facility] 11/07/2020 12:00:00 AM EDT Y[facility]IR[place] ([facility]) Outpatient [address] [address] 10/16/2020 12:00:00 AM EDT eCW1 ([facility]) LEEANN RameyC: [address] [place] [address], Ph. Attender: Cira Barton [facility] 10/10/2020 12:00:00 AM EDT YAHAIRA ([facility]) LEEANN RameyC: [address] [place] [address], Ph. Attender: Cira Barton [facility] 10/10/2020 12:00:00 AM EDT Y[facility]IRA ([facility]) Outpatient Attender: Jeni martinez 09/28/2020 12:00:00 PM EDT MEDENT [facility] Outpatient<td ID="encounterTypeDescripti onID0">Primary Care Telehealth FaceTime</td><td>Aaron Daugherty DO</td><td>[facility]</td><td>09/21/2020</td><td>10:40AM</td><td>11:59PM</td><td><content ID="encounterDiagnosisID0-0">Hypothyroidism</content>, <content ID="encounterDiagnosisID0-1">Depression</content>, <content ID="encounterDiagnosisID0-2">Generalized Anxiety Disorder</content>, <content ID="encounterDiagnosisID0-3">Vitamin D Deficiency</content></td> Attender: Aaron Daugherty DO [facility] 09/21/2020 10:40:00 AM EDT - 09/21/2020 11:59:00 PM EDT Vitamin D DeficiencyGeneralized Anxiety DisorderHypothyroidismDepression [facility] ([facility]) Vitamin D Deficiency Generalized Anxiety Disorder Hypothyroidism Depression Outpatient Attender: Keren Schwartz NPAttender: Aaron sandoval DO 09/18/2020 10:24:00 AM EDT lab [facility] [place] [address] [address] 08/31/2020 12:00:00 AM EST [facility] [place] [address] [address] 07/14/2020 12:00:00 AM EST [facility]CW1 [facility]) <td ID="encounterTypeDescriptionID3">Tel ephonic Encounter</td><td>Aaron Daugherty DO</td><td>[facility]</td><td>07/11/2020</td><td>06/27/2020 7:00PM</td><td>6:06PM</td><td><content ID="encounterDiagnosisID3- 0">Depression</content>, <content ID="encounterDiagnosisID3-1">Generalized Anxiety Disorder</content>, <content ID="encounterDiagnosisID3-2"> Hypothyroidism</content></td>Outpatient Attender: Aaron Daugherty DO [facility] 06/27/2020 07:00:00 PM EST - 07/11/2020 06:06:23 PM ES T HypothyroidismGeneralized Anxiety DisorderHypothyroidismGeneralized Anxiety DisorderDepressionDepression [facility] ([facility] Hypothyroidism Generalized Anxiety Disorder Hypothyroidism Generalized Anxiety Disorder Depression Depression <td ID="encounterTypeDescriptionID4">Carito rt Prep</td><td>Aaron Daugherty DO</td><td></td><td>07/04/2020</td><td>06/27/2020 4:40PM</td><td>06/27/2020 11:59PM</td><td></td>Unknown Attender: Aaron Daugherty DO 06/27/2020 04:40:00 PM EST - 06/27/2020 11:59:00 PM EST [facility] ([facility]) <td ID="encounterTypeDescriptionID0">Tel ephonic Encounter</td><td>Aaron Daugherty DO</td><td>[facility]</td><td>08/24/2020</td><td>06/27/2020 3:50PM</td><td>4:29PM</td><td><content ID="encounterDiagnosisID0- 0">Fatigue</content>, <content ID="encounterDiagnosisID0- 1">Hypothyroidism</content>, <content ID="encounterDiagnosisID0-2">Generalized Anxiety Disorder</content>, <content ID="encounterDiagnosisID0-3">Depression</content></td>Outpatient Attender: Aaron Daugherty [facility] 06/27/2020 03:50:00 PM EST - 08/24/2020 04:29:00 PM EST FatigueGeneralized Anxiety DisorderHypothyroidismDepre ssion [facility] ([facility]) Fatigue Generalized Anxiety Disorder Hypothyroidism Depression <td ID="encounterTypeDescriptionID2">Carito rt Update</td><td>Fanny Cm RN</td><td></td><td>07/20/2020</td><td>06/27/2020 3:44PM</td><td>07/11/2020 11:59PM</td><td></td>Unknown Attender: Fanny Cm RN 05/31 03:44:00 PM EST - 07/11/2020 11:59:00 PM EST [facility] ([facility] Unknown<td ID="encounterTypeDescriptionI D1">Chart Update</td><td>Keren Schwartz NP</td><td></td><td>08/11/2020</td><td>06/27/2020 9:15AM</td><td>07/11/2020 11:59PM</td><td><content ID="encounterDiagnosisID1-0">Hypothyroidism</content></td> Attender: Keren Schwartz NP 06/27/2020 09:15:00 AM EST - 07/11/2020 11:59:00 PM EST HypothyroidismHypothyroidism [facility] ([facility]) Hypothyroidism Hypothyroidism Unknown<td ID="encounterTypeDescriptionI D5">D Dental Office Visit - 30</td><td>Kylie Adkins DDS</td><td>[facility]</td><td>06/27/2020</td><td>7:49AM</td><td>8:26AM</td><td></td> Attender: Kylie Adkins DDS [facility] 06/27/2020 07:49:00 AM EST - 06/27/2020 08:26:00 AM EST [facility] ([facility] [place] [address] [address] 04/28/2020 12:00:00 AM EDT eC ([facility]) Immunizations Vaccine Date Status Description Data Source(s) COVID-19, mRNA, LNP-S, PF, 100 mcg/0.5 mL dose 11/07/2020 05 :16:54 PM EDT completed .5 mL [facility]) Moderna COVID-19 11/07/2020 02:56:00 PM EDT completed <td ID="Mjyvweaxczezm-Pbdzpkdstlg-BA4">Moderna COVID-19</td><td ID="ImmunizationDose-1">2</td><td>11/07/2020</td><td ID="Jrcumhqlkdkmk-XkfbxOmnk-SI2"></td><td></td><td ID="Jnxloeijslvct-Cdybka-KY2">Complete (Reported)</td><td>Patient</td><td ID="Nwmccleyielxv-Enajh-Ipmq-Comment-ID1"></td> [facility] ([facility]) COVID-19 VACCINE Moderna 11/07/2020 12:00:00 AM EDT completed [place] Vaccine Series Complete: YESThis Data wa s Submitted to [facility] Via [employer]. COVID-19, mRNA, LNP-S, PF, 100 mcg/0.5 mL dose 10/10/2020 05 :22:23 PM EDT completed .5 mL [place] ([facility]) COVID-19, mRNA, LNP-S, PF, 100 mcg/0.5 mL dose 10/10/2020 05 :22:23 PM EDT completed .5 mL [facility]) Moderna COVID-19 10/10/2020 02:56:00 PM EDT completed <td ID="Tpgvinaalossh-Qstcykpymjq-ZI1">Moderna COVID-19</td><td ID="ImmunizationDose-0">1</td><td>10/10/2020</td><td ID="Ugxpkjbxcbumt-VtwerTalb-HV3"></td><td></td><td ID="Hghxnolqhtwqq-Upuwwe-AT4">Complete (Reported)</td><td>Patient</td><td ID="Laeybblkzwcsf-Qmsfz-Jtli-Comment-ID0"></td> [facility] ([facility]) COVID-19 VACCINE Moderna 10/10/2020 12:00:00 AM EDT completed [place] Vaccine Series Complete: NOThis Data was Submitted to [facility] Via [employer]. Medications Medication Brand Name Start Date Product Form Dose Route Admi nistrative Instructions Pharmacy Instructions Status Indications Reaction Description Data Source(s) buspirone hydrochloride 5 MG Oral Tablet BUSPIRONE HCL 01/10/2021 12:00:00 AM EDT tablet 60 TAKE ONE TABLET BY MOUTH TWI CE A DAY TAKE ONE TABLET BY MOUTH TWICE A DAY SOLD: 04/03/2021 [facility] buspirone hydrochloride 5 MG Oral Tablet BUSPIRONE HCL 01/10/2021 12:00:00 AM EDT tablet 60 TAKE ONE TABLET BY MOUTH TWI CE A DAY TAKE ONE TABLET BY MOUTH TWICE A DAY SOLD: 02/26/2021 [facility] 50 mg 01/10/2021 12:00:00 AM EDT tablet 30 TAKE 1-2 TABLETS BY MOUTH FOUR TIMES A DAY NEEDED FOR ANXIETY/PANIC TAKE 1-2 TABLETS BY MOUTH FOUR TIMES A DAY NEEDED FOR ANXIETY/PANIC SOLD: 01/11/2021 [facility] buspirone hydrochloride 5 MG Oral Tablet BUSPIRONE HCL 01/10/2021 12:00:00 AM EDT tablet 60 TAKE ONE TABLET BY MOUTH TWI CE A DAY TAKE ONE TABLET BY MOUTH TWICE A DAY SOLD: 01/11/2021 [facility] Hydroxyzine Hydrochloride 50 MG Oral Tablet hydrOXYzin e HCl 50 MG Oral Tablet hydrOXYzine HCl 50 MG Oral Tablet 01/09/2021 12:00:00 AM EDT active hydroxyzine hydrochloride 50 MG Oral Tablet [facility] ( [facility]) buspirone hydrochloride 5 MG Oral Tablet busPIRone HCl 5 MG Oral Tablet busPIRone HCl 5 MG Oral Tablet 01/09/2021 12:00:00 AM EDT 1 active buspirone hydrochloride 5 MG Oral Tablet [facility] ([facility]) 1,250 mcg (50,000 unit) 12/12/2020 12:00:00 AM EDT capsule 4 TAKE 1 CAPSULE BY MOUTH ONCE A WEEK TAKE 1 CAPSULE BY MOUTH ONCE A WEEK SOLD: 02/19/2021 [facility] 1,250 mcg (50,000 unit) 12/12/2020 12:00:00 AM EDT capsule 4 TAKE 1 CAPSULE BY MOUTH ONCE A WEEK TAKE 1 CAPSULE BY MOUTH ONCE A WEEK SOLD: 12/15/2020 [facility] 1,250 mcg (50,000 unit) 12/12/2020 12:00:00 AM EDT capsule 4 TAKE 1 CAPSULE BY MOUTH ONCE A WEEK TAKE 1 CAPSULE BY MOUTH ONCE A WEEK SOLD: 01/24/2021 [facility] Vitamin D (Ergocalciferol) 1.25 MG (12746 UT) Oral Cap casa Vitamin D (Ergocalciferol) 1.25 MG (12028 UT) Oral Capsule 12/08/2020 12:00:00 AM EDT active Vitamin D (Ergocalci ferol) [facility] ([facility]) 100 mg 11/28/2020 12:00:00 AM EDT tablet 30 TAKE ONE TABLET BY MOUTH EVERY DAY TAKE ONE TABLET BY MOUTH EVERY DAY SOLD: 12/09/2020 [facility] 100 mg 11/28/2020 12:00:00 AM EDT tablet 30 TAKE ONE TABLET BY MOUTH EVERY DAY TAKE ONE TABLET BY MOUTH EVERY DAY SOLD: 02/09/2021 [facility] 100 mg 11/28/2020 12:00:00 AM EDT tablet 30 TAKE ONE TABLET BY MOUTH EVERY DAY TAKE ONE TABLET BY MOUTH EVERY DAY SOLD: 03/17/2021 [facility] 100 mg 11/28/2020 12:00:00 AM EDT tablet 30 TAKE ONE TABLET BY MOUTH EVERY DAY TAKE ONE TABLET BY MOUTH EVERY DAY SOLD: 01/11/2021 [facility] 50 mg 11/25/2020 12:00:00 AM EDT tablet 30 TAKE ONE TABLET BY MOUTH AT BEDTIME NEEDED TAKE ONE TABLET BY MOUTH AT BEDTIME NEEDED SOLD: [facility] 50 mg 11/25/2020 12:00:00 AM EDT tablet 30 TAKE ONE TABLET BY MOUTH AT BEDTIME NEEDED TAKE ONE TABLET BY MOUTH AT BEDTIME NEEDED SOLD: [facility] 50 mg 11/25/2020 12:00:00 AM EDT tablet 30 TAKE ONE TABLET BY MOUTH AT BEDTIME NEEDED TAKE ONE TABLET BY MOUTH AT BEDTIME NEEDED SOLD: [facility] 50 mg 11/25/2020 12:00:00 AM EDT tablet 30 TAKE ONE TABLET BY MOUTH AT BEDTIME NEEDED TAKE ONE TABLET BY MOUTH AT BEDTIME NEEDED SOLD: [facility] Sertraline 100 MG Oral Tablet Sertraline HCl 100 MG Or al Tablet Sertraline HCl 100 MG Oral Tablet 11/23/2020 12:00:00 AM EDT 1 active sertraline 100 MG Oral Tablet [facility] ([facility]) Trazodone Hydrochloride 50 MG Oral Tablet traZODone HC l 50 MG Oral Tablet traZODone HCl 50 MG Oral Tablet 11/23/2020 12:00:00 AM EDT 1 active trazodone hydrochloride 50 MG Oral Tablet [facility] ([facility]) 75 mcg 09/21/2020 12:00:00 AM EDT tablet 30 TAKE ONE TABLET BY MOUTH ONCE DAILY TAKE ONE TABLET BY MOUTH ONCE DAILY SOLD: 10/18/2020 [facility] Vitamin D (Ergocalciferol) 1.25 MG (56306 UT) Oral Cap casa Vitamin D (Ergocalciferol) 1.25 MG (56844 UT) Oral Capsule 09/21/2020 12:00:00 AM EDT active Vitamin D (Ergocalci ferol) [facility] ([facility]) 75 mcg 09/21/2020 12:00:00 AM EDT tablet 30 TAKE ONE TABLET BY MOUTH ONCE DAILY TAKE ONE TABLET BY MOUTH ONCE DAILY SOLD: 12/18/2020 [facility] Levothyroxine Sodium 0.075 MG Oral Table t Levothyroxine Sodium 75 MCG Oral Tablet Levothyroxine Sodium 75 MCG Oral Tablet 09/21/2020 12:00:00 AM EDT 1 active levothyroxine sodium 0.07 5 MG Oral Tablet [facility] ([facility]) 1,250 mcg (50,000 unit) 09/21/2020 12:00:00 AM EDT capsule 4 TAKE ONE CAPSULE BY MOUTH ONCE A WEEK TAKE ONE CAPSULE BY MOUTH ONCE A WEEK SOLD: 10/18/2020 [facility] 75 mcg 09/21/2020 12:00:00 AM EDT tablet 30 TAKE ONE TABLET BY MOUTH ONCE DAILY TAKE ONE TABLET BY MOUTH ONCE DAILY SOLD: 02/19/2021 [facility] 75 mcg 09/21/2020 12:00:00 AM EDT tablet 30 TAKE ONE TABLET BY MOUTH ONCE DAILY TAKE ONE TABLET BY MOUTH ONCE DAILY SOLD: 01/18/2021 [facility] 75 mcg 09/21/2020 12:00:00 AM EDT tablet 30 TAKE ONE TABLET BY MOUTH ONCE DAILY TAKE ONE TABLET BY MOUTH ONCE DAILY SOLD: 11/17/2020 [facility] 75 mcg 09/21/2020 12:00:00 AM EDT tablet 30 TAKE ONE TABLET BY MOUTH ONCE DAILY TAKE ONE TABLET BY MOUTH ONCE DAILY SOLD: 03/17/2021 [facility] 1,250 mcg (50,000 unit) 09/21/2020 12:00:00 AM EDT capsule 4 TAKE ONE CAPSULE BY MOUTH ONCE A WEEK TAKE ONE CAPSULE BY MOUTH ONCE A WEEK SOLD: 09/21/2020 [facility] 1,250 mcg (50,000 unit) 09/21/2020 12:00:00 AM EDT capsule 4 TAKE ONE CAPSULE BY MOUTH ONCE A WEEK TAKE ONE CAPSULE BY MOUTH ONCE A WEEK SOLD: 11/17/2020 [facility] 75 mcg 09/21/2020 12:00:00 AM EDT tablet 30 TAKE ONE TABLET BY MOUTH ONCE DAILY TAKE ONE TABLET BY MOUTH ONCE DAILY SOLD: 09/21/2020 [facility] 50 mcg 08/12/2020 12:00:00 AM EST tablet 30 TAKE ONE TABLET BY MOUTH EVERY DAY TAKE ONE TABLET BY MOUTH EVERY DAY SOLD: 08/18/2020 [facility] 50 mcg 08/12/2020 12:00:00 AM EST tablet 30 TAKE ONE TABLET BY MOUTH EVERY DAY TAKE ONE TABLET BY MOUTH EVERY DAY SOLD: 09/18/2020 [facility] Levothyroxine Sodium 0.05 MG Oral Tablet Levothyroxine Sodium 50 MCG Oral Tablet Levothyroxine Sodium 50 MCG Oral Tablet 08/11/2020 12:00:00 AM EST aborted levothyroxine sodium 0.05 MG Ora l Tablet [facility] ([facility]) buspirone hydrochloride 5 MG Oral Tablet BUSPIRONE HCL 07/12/2020 12:00:00 AM EST tablet 60 TAKE ONE TABLET BY MOUTH TWI CE A DAY TAKE ONE TABLET BY MOUTH TWICE A DAY SOLD: 12/09/2020 [facility] buspirone hydrochloride 5 MG Oral Tablet BUSPIRONE HCL 07/12/2020 12:00:00 AM EST tablet 60 TAKE ONE TABLET BY MOUTH TWI CE A DAY TAKE ONE TABLET BY MOUTH TWICE A DAY SOLD: 11/02/2020 [facility] buspirone hydrochloride 5 MG Oral Tablet BUSPIRONE HCL 07/12/2020 12:00:00 AM EST tablet 60 TAKE ONE TABLET BY MOUTH TWI CE A DAY TAKE ONE TABLET BY MOUTH TWICE A DAY SOLD: 07/12/2020 [facility] 50 mg 07/12/2020 12:00:00 AM EST tablet 30 TAKE 1-2 TABLETS BY MOUTH FOUR TIMES A DAY NEEDED FOR ANXIETY/PANIC TAKE 1-2 TABLETS BY MOUTH FOUR TIMES A DAY NEEDED FOR ANXIETY/PANIC SOLD: 09/06/2020 [facility] 50 mg 07/12/2020 12:00:00 AM EST tablet 30 TAKE 1-2 TABLETS BY MOUTH FOUR TIMES A DAY NEEDED FOR ANXIETY/PANIC TAKE 1-2 TABLETS BY MOUTH FOUR TIMES A DAY NEEDED FOR ANXIETY/PANIC SOLD: 11/02/2020 [facility] 50 mg 07/12/2020 12:00:00 AM EST tablet 30 TAKE 1-2 TABLETS BY MOUTH FOUR TIMES A DAY NEEDED FOR ANXIETY/PANIC TAKE 1-2 TABLETS BY MOUTH FOUR TIMES A DAY NEEDED FOR ANXIETY/PANIC SOLD: 07/12/2020 [facility] buspirone hydrochloride 5 MG Oral Tablet BUSPIRONE HCL 07/12/2020 12:00:00 AM EST tablet 60 TAKE ONE TABLET BY MOUTH TWI CE A DAY TAKE ONE TABLET BY MOUTH TWICE A DAY SOLD: 09/30/2020 [facility] Hydroxyzine Hydrochloride 50 MG Oral Tablet hydrOXYzin e HCl 50 MG Oral Tablet hydrOXYzine HCl 50 MG Oral Tablet 07/11/2020 12:00:00 AM EST active hydroxyzine hydrochloride 50 MG Oral Tablet [facility] ( [facility]) buspirone hydrochloride 5 MG Oral Tablet busPIRone HCl 5 MG Oral Tablet busPIRone HCl 5 MG Oral Tablet 07/11/2020 12:00:00 AM EST 1 active buspirone hydrochloride 5 MG Oral Tablet [facility] ([facility]) Levothyroxine Sodium 0.025 MG Oral Table t Levothyroxine Sodium 25 MCG Oral Tablet Levothyroxine Sodium 25 MCG Oral Tablet 07/11/2020 12:00:00 AM EST aborted levothyroxine sodium 0.02 5 MG Oral Tablet [facility] ([facility]) Estarylla 0.25-35 MG-MCG Oral Tablet Estarylla 0.25-35 MG-MC G Oral Tablet 07/11/2020 12:00:00 AM EST active {21 (ethinyl estradiol 0.035 MG / norgestimate 0.25 MG Oral Tablet) / 7 (inert ingredients 1 MG Oral Tablet) } Pack [Estarylla ] [facility] ([facility]) 100 mg 06/05/2020 12:00:00 AM EST tablet 30 TAKE ONE TABLET BY MOUTH EVERY DAY TAKE ONE TABLET BY MOUTH EVERY DAY SOLD: 07/06/2020 [facility] 100 mg 06/05/2020 12:00:00 AM EST tablet 30 TAKE ONE TABLET BY MOUTH EVERY DAY TAKE ONE TABLET BY MOUTH EVERY DAY SOLD: 11/02/2020 [facility] 100 mg 06/05/2020 12:00:00 AM EST tablet 30 TAKE ONE TABLET BY MOUTH EVERY DAY TAKE ONE TABLET BY MOUTH EVERY DAY SOLD: 09/06/2020 [facility] 100 mg 06/05/2020 12:00:00 AM EST tablet 30 TAKE ONE TABLET BY MOUTH EVERY DAY TAKE ONE TABLET BY MOUTH EVERY DAY SOLD: 10/04/2020 [facility] 100 mg 06/05/2020 12:00:00 AM EST tablet 30 TAKE ONE TABLET BY MOUTH EVERY DAY TAKE ONE TABLET BY MOUTH EVERY DAY SOLD: 08/07/2020 [facility] Sertraline 100 MG Oral Tablet [Zoloft] Zoloft 100 MG Zoloft 100 MG 04/28/2020 12:00:00 AM EDT 1.0 {tablet} active eCW1 ([facility]) Sprinte[facility] 28 0.25-35 MG-MCG [facility] 28 0.25-35 MG-MCG 2019 12:00:00 AM EDT 1.0 {tablet} active Sprintec 28 0.25-35 MG-MCG eCW1 ([facility]) Spr[facility] 28 0.25-35 MG-MCG [facility] 28 0.25-35 MG-MCG 2019 12:00:00 AM EDT 1.0 {tablet} active Sprintec 28 0.25-35 MG-MCG eCW1 ([facility]) Levothyroxine Sodium 0.025 MG Oral Tablet [Synthroid] Synthroid 25 MCG Synthroid 25 MCG 04/28/2020 12:00:00 AM EDT active Synthroid 25 MCG eCW1 ([facility]) Sertraline 100 MG Oral Tablet [Zoloft] Zoloft 100 MG Zoloft 100 MG 04/28/2020 12:00:00 AM EDT 1.0 {tablet} active Zo loft 100 MG eCW1 ([facility]) Sprintec 28 0.25-35 MG-MCG [facility] 28 0.25-35 MG-MCG 2019 12:00:00 AM EDT 1.0 {tablet} suspended e CW1 ([facility]) Sprintec 28 0.25-35 MG-MCG [facility] 28 0.25-35 MG-MCG 2019 12:00:00 AM EDT 1.0 {tablet} active Sprintec 28 0.25-35 MG-MCG eCW1 ([facility]) Sertraline 100 MG Oral Tablet [Zoloft] Zoloft 100 MG Zoloft 100 MG 04/28/2020 12:00:00 AM EDT 1.0 {tablet} active Zo loft 100 MG eCW1 ([facility]) Levothyroxine Sodium 0.025 MG Oral Tablet [Synthroid] Synthroid 25 MCG Synthroid 25 MCG 04/28/2020 12:00:00 AM EDT active eCW1 ([facility]) Sprintec 28 0.25-35 MG-MCG Spr[facility] 28 0.25-35 MG-MCG 2019 12:00:00 AM EDT 1.0 {tablet} active Sprintec 28 0.25-35 MG-MCG eCW1 ([facility]) Levothyroxine Sodium 0.025 MG Oral Tablet [Synthroid] Synthroid 25 MCG Synthroid 25 MCG 04/28/2020 12:00:00 AM EDT active Synthroid 25 MCG eCW1 ([facility]) Sertraline 100 MG Oral Tablet [Zoloft] Zoloft 100 MG Zoloft 100 MG 04/28/2020 12:00:00 AM EDT 1.0 {tablet} active Zo loft 100 MG eCW1 ([facility]) Levothyroxine Sodium 0.025 MG Oral Tablet [Synthroid] Synthroid 25 MCG Synthroid 25 MCG 04/28/2020 12:00:00 AM EDT active Synthroid 25 MCG eCW1 ([facility]) Sprintec 28 0.25-35 MG-MCG Spr[facility] 28 0.25-35 MG-MCG 2019 12:00:00 AM EDT 1.0 {tablet} suspended Sprintec 28 0.25-35 MG-MCG eCW1 ([facility]) Sertraline 100 MG Oral Tablet [Zoloft] Zoloft 100 MG Zoloft 100 MG 04/28/2020 12:00:00 AM EDT 1.0 {tablet} active Zo loft 100 MG eCW1 ([facility]) Levothyroxine Sodium 0.025 MG Oral Tablet [Synthroid] Synthroid 25 MCG Synthroid 25 MCG 04/28/2020 12:00:00 AM EDT active Synthroid 25 MCG eCW1 ([facility]) Levothyroxine Sodium 0.025 MG Oral Tablet [Synthroid] Synthroid 25 MCG Synthroid 25 MCG 04/28/2020 12:00:00 AM EDT active Synthroid 25 MCG eCW1 ([facility]) Sertraline 100 MG Oral Tablet [Zoloft] Zoloft 100 MG Zoloft 100 MG 04/28/2020 12:00:00 AM EDT 1.0 {tablet} active Zo loft 100 MG eCW1 ([facility]) 50 mcg 03/25/2020 12:00:00 AM EDT tablet 30 TAKE ONE TABLET BY MOUTH EVERY DAY DIRECTED TAKE ONE TABLET BY MOUTH EVERY DAY DIRECTED SOLD: 020 [facility] 50 mcg 03/25/2020 12:00:00 AM EDT tablet 30 TAKE ONE TABLET BY MOUTH EVERY DAY DIRECTED TAKE ONE TABLET BY MOUTH EVERY DAY DIRECTED SOLD: 020 [facility] 0.25-35 mg-mcg 03/03/2020 12:00:00 AM EDT tablet 28 TAKE ONE TABLET BY MOUTH EVERY DAY TAKE ONE TABLET BY MOUTH EVERY DAY SOLD: 07/06/2020 [facility] 0.25-35 mg-mcg 03/03/2020 12:00:00 AM EDT tablet 28 TAKE ONE TABLET BY MOUTH EVERY DAY TAKE ONE TABLET BY MOUTH EVERY DAY SOLD: 04/19/2020 [facility] 0.25-35 mg-mcg 03/03/2020 12:00:00 AM EDT tablet 28 TAKE ONE TABLET BY MOUTH EVERY DAY TAKE ONE TABLET BY MOUTH EVERY DAY SOLD: 06/09/2020 [facility] 0.25-35 mg-mcg 03/03/2020 12:00:00 AM EDT tablet 28 TAKE ONE TABLET BY MOUTH EVERY DAY TAKE ONE TABLET BY MOUTH EVERY DAY SOLD: 03/06/2020 [facility] 100 mg 03/03/2020 12:00:00 AM EDT tablet 90 TAKE ONE TABLET BY MOUTH EVERY DAY TAKE ONE TABLET BY MOUTH EVERY DAY SOLD: 03/06/2020 [facility] 0.25-35 mg-mcg 03/03/2020 12:00:00 AM EDT tablet 28 TAKE ONE TABLET BY MOUTH EVERY DAY TAKE ONE TABLET BY MOUTH EVERY DAY SOLD: 05/16/2020 [facility] 50 mcg 03/26/2019 12:00:00 AM EDT tablet 30 TAKE ONE TABLET BY MOUTH EVERY DAY TAKE ONE TABLET BY MOUTH EVERY DAY SOLD: 02/28/2020 [facility] Levothyroxine Sodium 0.05 MG Oral Tablet Levothyroxine Sodium 50MCG Oral Tablet Levothyroxine Sodium 50MCG Oral Tablet 03/02/2019 12:00:00 AM EDT 1 aborted levothyroxine sodium 0.05 MG Ora l Tablet [facility] 27-0.8MG Oral Tablet [facility] 27-0.8MG Oral Tablet 01/11/2019 12:00:00 AM EDT 1 aborted [facility] Pre [facility] ([facility]) Insurance Providers Payer name Policy type / Coverage type Policy ID Covered democrat ID Covered democrat's relationship to jiang Policy Jiang Plan Information BCBS [facility] Other 0 [id number] Family Dep [facility] 0 BCBS of [facility] Other 0 [id number] Family [facility] 0 BLUE CROSS [id number] SPO [id number] SELF PAY Financial Assistance 50% SP [place] [place] Other 0 [id number] Self 0 [place] Other 0 [id number] Self 0 [place] Other 0 [id number] Self 0 [place] Other 0 [id number] Self 0 BLUE CROSS [id number] SPO [id number] Financial Assistance 50% SP SELF PAY SELF PAY BLUE CROSS [id number] SPO [id number] [facility] COMMUNITY PLAN [id number] SP [id number] [facility] [id number] SP [id number] SELF PAY [facility] COMMUNITY PLAN [id number] SP [id number] SELF PAY [facility] PLAN [id number] SP [id number] BCBS OF [place] 306/806 [id number] HU2 [id number] [facility] Medigap Part B [id number] Family Dependent [id number] [facility] Maintenance Organization ([facility]) [id number] Self [id number] [facility] Maintenance Organization ([facility]) [id number] Family Dependent [id number] Financial Assistance Self Pay SP [facility] Maintenance Organization ([facility]) [id number] Family Dependent [id number] [facility] Maintenance Organization ([facility]) [id number] Family Dependent [id number] [facility] B [id number] S [id number] [id number] [facility] Maintenance Organization ([facility]) [id number] Family Dependent [place] Medigap Part B [id number] Self [employer] Commercial [id number] Family Dependent [place] B [id number] Self BC/BS Of [place] Commercial [id number] Family Depende nt MEDICAID M [id number] S [id number] [employer] BCBS B [id number] C GLX [id number] BCBS OF [place] [phone] [id number] FA2 [id number] BCBS OF [place] 306/806 [id number] FA2 [id number] SELF PAY UNAVAILABLE UNAVAILA BLE MEDICAID - CLINIC [id number] UN COMMUNITY PLAN [facility] [id number] SP [id number] BLUE CROSS [facility] [id number] UN COMMUNITY PLAN [facility] [id number] SP [id number] [facility] MEDICAID [id number] SP [id number] E UnitedHealthcare Other 0 [id number] Self 0 UnitedHealthcare Other 0 [id number] Self 0 UnitedHealthcare Other 0 [id number] Self 0 UnitedHealth[employer] Other 0 [id number] Self 0 UnitedHealth[employer] Other 0 [id number] Self 0 United[employer] Other 0 [id number] Self 0 UNITED HEALTHCARE(MCAID) O [id number] S [id number] MEDICAID [id number] SP [id number] [place] 306/806 [id number] SP [id number] BCBS [place] PPO 302/307 [id number] SP [id number] [place]BS [place] PPO 302/307 [id number] SP [id number] [employer] BCBS Medigap Part B [id number] Family Dependent [id number] [employer] BCBS Health Maintenance Organization (HMO) [id number] [facility] [id number] BCBS [place] 306/806 [id number] [place] 306/806 [id number] SP [id number] BC[place] 306/806 [id number] SP [id number] Problems, Conditions, and Diagnoses Code Display Name Description Problem Type Effective Dates Data Source(s) E03.9 Hypothyroidism, unspecified E03.9 - Hypothyroidism, un specified Diagnosis 09/18/2020 10:24:00 AM EDT [employer] F41.1 Generalized anxiety disorder F41.1 - Generalized anxiety disorder Diagnosis 09/18/2020 10:24:00 AM EDT [facility] 268.9 Vitamin D Deficiency Vitamin D Deficiency Problem 09/21/2020 12:53:00 PM EDT [facility] ([facility]) 268.9 Vitamin D Deficiency Vitamin D Deficiency Problem 09/21/2020 12:53:00 PM EDT [facility] ([facility]) 268.9 Vitamin D Deficiency Vitamin D Deficiency Problem 09/21/2020 12:53:00 PM EDT [facility] ([facility]) 268.9 Vitamin D Deficiency Vitamin D Deficiency Problem 09/21/2020 12:53:00 PM EDT [facility] ([facility]) E03.9 [id number] Hypothyroid Problem 04/28/2020 12:00:00 AM E DT eCW1 ([facility]) Surgeries/Procedures Procedure Description Date Indications Data Source(s) Summary provided electronically in CCDA format & reasonable certainty of receipt 01/09/2021 12:00:00 AM EDT - 01/09/2021 12:00:00 AM EDT [facility] ([facility]) Clinical summary provided to patient 12:00:00 AM EDT - 01/09/2021 12:00:00 AM EDT [facility] ([facility]) Clinical summary provided to patient 12:00:00 AM EDT - 01/09/2021 12:00:00 AM EDT [facility] ([facility]) medical regimen review 01/09/2021 12:00: 00 AM EDT - 01/09/2021 12:00:00 AM EDT [facility] ([facility]) Transition in care medication list update 01/09/2021 12:00:00 AM EDT - 01/09/2021 12:00:00 AM EDT [facility] ([facility]) continue current medication except where otherwise noted 01/09/2021 12:00:00 AM EDT - 01/09/2021 12:00:00 AM EDT [facility] ([facility]) Ligation of fallopian tube (procedure) History of tubal liga tion 11/24/2020 12:00:00 AM EDT [facility] ([facility]) Ligation of fallopian tube (procedure) History of tubal liga tion 11/24/2020 12:00:00 AM EDT [facility] ([facility]) Summary provided electronically in CCDA format & reasonable certainty of receipt 11/23/2020 12:00:00 AM EDT - 11/23/2020 12:00:00 AM EDT [facility] ([facility]) Clinical summary provided to patient 12:00:00 AM EDT - 11/23/2020 12:00:00 AM EDT [facility] ([facility]) Clinical summary provided to patient 12:00:00 AM EDT - 11/23/2020 12:00:00 AM EDT [facility] ([facility]) medical regimen review 11/23/2020 12:00: 00 AM EDT - 11/23/2020 12:00:00 AM EDT [facility] ([facility]) Transition in care medication list update 11/23/2020 12:00:00 AM EDT - 11/23/2020 12:00:00 AM EDT [facility] ([facility]) continue current medication except where otherwise noted 11/23/2020 12:00:00 AM EDT - 11/23/2020 12:00:00 AM EDT [facility] ([facility]) Summary provided electronically in CCDA format & reasonable certainty of receipt 09/21/2020 12:00:00 AM EDT - 09/21/2020 12:00:00 AM EDT [facility] ([facility]) Clinical summary provided to patient 12:00:00 AM EDT - 09/21/2020 12:00:00 AM EDT [facility] ([facility]) Clinical summary provided to patient 12:00:00 AM EDT - 09/21/2020 12:00:00 AM EDT [facility] ([facility]) medical regimen review 09/21/2020 12:00: 00 AM EDT - 09/21/2020 12:00:00 AM EDT [facility] ([facility]) Transition in care medication list update 09/21/2020 12:00:00 AM EDT - 09/21/2020 12:00:00 AM EDT [facility] ([facility]) continue current medication except where otherwise noted 09/21/2020 12:00:00 AM EDT - 09/21/2020 12:00:00 AM EDT [facility] ([facility]) Oral Cancer Screening Oral Cancer Screening 06/27/2020 12:00:00 AM EST [facility] ([facility]) Periodic Oral Evaluation Periodic Oral Evaluation 06/27/2020 12:00: 00 AM EST [facility] ([facility]) [place] - 4 radiographic images [place] - 4 radiographic i mages 06/27/2020 12:00:00 AM EST [facility] ([facility]) Periodic Oral Evaluation, [facility] Periodic Oral Evaluati on, [facility] 06/27/2020 12:00:00 AM EST [facility] ([facility]) Results ID Date Data Source [id number] 03/28/2021 01:57:00 PM [facility] Name Value Range Interpretation Code Description Data Elise rce(s) Supporting Document(s) TSH 2.517 uIU/ML 0.470-4.200 N [facility] Patients should not be tested for 72 ho urs post fluorescein dye angiography. A false depression of result may occur. ID Date Data Source [id number] 11/14/2020 11:43:00 AM EDT [facility] ([facility]) Name Value Range Interpretation Code Description Data Elise rce(s) Supporting Document(s) Thyrotropin [Units/volume] in Serum or Plasma by Detec tion limit <= 0.05 mIU/L 0.537 uIU/ML Normal TSH [facility] ([facility]) Note: Patients should not be tested for 72 hours post fluorescein dye angiography. A false depression of result may occur.Responsible Observer: TSH TSH 300.5500 (A) ID Date Data Source [id number] 11/14/2020 05:20:00 PM EDT [facility] Name Value Range Interpretation Code Description Data Elise rce(s) Supporting Document(s) TSH 0.537 uIU/ML 0.470-4.200 N [facility] Patients should not be tested for 72 ho urs post fluorescein dye angiography. A false depression of result may occur. ID Date Data Source [id number] 10/22/2020 08:25:00 AM EDT [facility] Name Value Range Interpretation Code Description Data Elise rce(s) Supporting Document(s) SARS-CoV-2 (COVID-19) RNA [Presence] in Respiratory specimen by ANN with probe detection Not Detected [facility] This lab was ordered by [facility] and reported by [employer]. ID Date Data Source [id number] 09/28/2020 12:00:00 AM EDT [facility] Name Value Range Interpretation Code Description Data Elise rce(s) Supporting Document(s) SARS-CoV2 Rapid Antigen Negative [facility] This lab was reported by [facility]. ID Date Data Source [id number] 09/18/2020 10:29:00 AM EDT [facility] ([employer]) Name Value Range Interpretation Code Description Data Elise rce(s) Supporting Document(s) Thyrotropin [Units/volume] in Serum or Plasma by Detec tion limit <= 0.05 mIU/L 5.116 uIU/ML Above high normal TSH [facility] ([facility]) Note: Patients should not be tested for 72 hours post fluorescein dye angiography. A false depression of result may occur.Responsible Observer: TSH TSH 300.5500 (A) ID Date Data Source [id number] 09/18/2020 10:29:00 AM EDT [facility] ([employer]) Name Value Range Interpretation Code Description Data Elise rce(s) Supporting Document(s) Alanine aminotransferase [Enzymatic activity/volume] in Seru m or Plasma 12 U/L Normal ALT [facility] ([facility]) Note: Responsible Observer: ALT/SGPT ALT 300.3100 (A) Alkaline phosphatase isoenzyme [Units/volume] in Serum or Plasma 76 U/L Normal ALKALINE PHOSPHATASE [facility] ([facility]) Note: Responsible Observer: ALK PHOS ALK JOSE MARIA PHOSPHATASE 300.3110 (A) Albumin [Mass/volume] in Synovial fluid 4.2 G/DL Normal ALBUMIN [facility] ([facility]) Note: Responsible Observer: ALB ALBUMIN 300.3900 (A) Albumin/Globulin [Mass Ratio] in Amniotic fluid 2.1 G/DL Normal ALB/GLOB RATIO [facility] ([facility]) Note: Responsible Observer: A/G RATIO AL B/GLOB RATIO 300.4100 (A) Aspartate aminotransferase [Enzymatic activity/volume] in Serum or Plasma 10 U/L Normal AST [facility] ([facility]) Note: Responsible Observer: AST/SGOT AST 300.3050 (A) Bilirubin.total [Mass/volume] in Serum or Plasma 0.2 MG/DL Normal BILIRUBIN,TOTAL [facility] ([facility]) Note: Responsible Observer: TOTAL BILI T OTAL BILIRUBIN 300.2700 (A) Urea nitrogen/Creatinine [Mass Ratio] in Serum or Plasma 14 Normal BUN/CREAT RATIO EMMA ([facility]) Note: Responsible Observer: BUN/CREAT RA TOR BUN/CREAT RATIO 300.0450 (A) BLOOD UREA NITRO 10 MG/DL Normal BLOOD UREA NITRO [facility] ([facility]) Note: Responsible Observer: BUN BLOOD UR EA NITROGEN 300.0350 (A) CA 8.4 MG/DL Below low normal CA EMMA ([facility]) Note: Responsible Observer: CA CALCIUM 300.2200 (A) Chloride [Moles/volume] in Serum, Plasma or Blood 107 MEQ/L Normal CHLORIDE EMMA ([facility]) Note: Responsible Observer: CL CHLORIDE 300.0200 (A) Carbon dioxide, total [Moles/volume] in Serum or Plasma 27 MEQ/L Normal CARBON DIOXIDE EMMA ([facility]) Note: Responsible Observer: CO2 CARBON D IOXIDE 300.0250 (A) Creatine/Creatinine [Mass Ratio] in Urine 0.7 MG/DL Brenda l CREATININE EMMA ([facility]) Note: Responsible Observer: CREAT CREATI NINE 300.0400 (A) Globulin [Mass/volume] in Serum by calculation 2.0 G/DL Normal GLOBULIN EM[facility] ([facility]) Note: Responsible Observer: GLOB GLOBULI N 300.4050 (A) Anion gap in Blood 10 Normal ANION GAP EM[facility] ([facility]) Note: Responsible Observer: ANION GAP AN ION GAP 300.0300 (A) GFR > 90.0 ML/MIN GFR EMMA ([facility]) Note: Stage G1 - Normal or high kidney function The GFR is an estimate of the Glomerular Filtration Rate. It is an aid to assess a patient's renal function. It is not a conclusive diagnosis of kidney disease. GFR normal is >=90 The MDRD GFR calculation is considered valid between the ages of 18 and 75 years only.Responsible Observer: GFR GFR 300.0410 (A) Sodium [Moles/volume] in Serum, Plasma or Blood 140 MEQ/L Normal SODIUM EMMA ([facility]) Note: Responsible Observer: NA SODIUM 3 00.0100 (A) Glucose [Presence] in Urine 109 MG/DL Above high normal G LUCOSE EM[facility] ([facility]) Note: Responsible Observer: GLU GLUCOSE 300.0500 (A) Protein [Mass/volume] in Synovial fluid 6.2 G/DL Normal TOTAL PROTEIN EM[facility] ([facility]) Note: Responsible Observer: TP TOTAL PRO TEIN 300.3750 (A) Potassium [Mass/volume] in Blood 4.4 MEQ/L Normal POT ASSIUM EM[facility] ([facility]) Note: Responsible Observer: K POTASSIUM 300.0150 (A) ID Date Data Source [id number] 09/18/2020 10:29:00 AM EDT EM[facility] ([facility]) Name Value Range Interpretation Code Description Data Elise rce(s) Supporting Document(s) BASO # (AUTO) 0.05 10\\^3/uL Normal BASO # (AUTO) EM[facility] ([facility]) Note: Responsible Observer: BASO # (AUTO ) BASO # (AUTO) 100.1500 (A) BASO % (AUTO) 0.8 % Normal BASO % (AUTO) [facility] ([facility]) Note: Responsible Observer: BASO % (AUTO ) BASO % (AUTO) 100.1250 (A) EOS # (AUTO) 0.32 10\\^3/uL Normal EOS # (AUTO) EMMA ( [facility]) Note: Responsible Observer: EOS # (AUTO) EOS # (AUTO) 100.1450 (A) GRAN % (AUTO) 58.0 % Normal GRAN % (AUTO) [facility] ([facility]) Note: Responsible Observer: GRAN % (AUTO ) GRAN % (AUTO) 100.1000 (A) GRAN # (AUTO) 3.59 10\\^3/uL Normal GRAN # (AUTO) EM[facility] ([facility]) Note: Responsible Observer: GRAN # (AUTO ) GRAN #(AUTO) 100.1325 (A) EOS % (AUTO) 5.2 % Normal EOS % (AUTO) [facility] ([facility]) Note: Responsible Observer: EOS % (AUTO) EOS % (AUTO) 100.1200 (A) IG # (AUTO) 0.0 10\\^3/uL IG # (AUTO) EM[facility] ([facility]) Note: Responsible Observer: IG # (AUTO) IG # (AUTO) 100.1260 (A) Hematocrit [Volume Fraction] of Blood by Automated count 36.0 % Normal HEMATOCRIT EM[facility] ([facility]) Note: Responsible Observer: HCT HEMATOCR IT 100.0400 (A) Hemoglobin [Mass/volume] in Blood 11.6 G/DL Normal HE MOGLOBIN [facility] ([facility]) Note: Responsible Observer: HGB HEMOGLOB IN 100.0300 (A) LYMPH # (AUTO) 1.9 k/uL Normal LYMPH # (AUTO) EM[facility] ( [facility]) Note: Responsible Observer: LYMPH # (AUT O) LYMPH # (AUTO) 100.1350 (A) IG % (AUTO) 0.3 % IG % (AUTO) EM[facility] ([facility]) Note: Responsible Observer: IG % (AUTO) IG % (AUTO) 100.1255 (A) LYMPH % (AUTO) 30.9 % Normal LYMPH % (AUTO) EM[facility] ( [facility]) Note: Responsible Observer: LYMPH % (AUT O) LYMPH % (AUTO) 100.1100 (A) Erythrocyte mean corpuscular hemoglobin [Entitic mass] by Automated count 27.3 PG Normal MCH EM[facility] ([facility]) Note: Responsible Observer: MCH MCH 100 .0600 (A) Erythrocyte mean corpuscular hemoglobin concentration [Mass/volume] by Automated count 32.2 G/DL Normal MCHC EM[facility] ([facility]) Note: Responsible Observer: MCHC MCHC 1 00.0650 (A) MONO % (AUTO) 4.8 % Normal MONO % (AUTO) [facility] ([facility]) Note: Responsible Observer: MONO % (AUTO ) MONO% (AUTO) 100.1150 (A) Erythrocyte mean corpuscular volume [Entitic volume] by Auto mated count 84.7 FL Normal MCV [place] ([facility]) Note: Responsible Observer: MCV MCV 100 .0550 (A) MONO # (AUTO) 0.30 k/uL Normal MONO # (AUTO) [facility] ([facility]) Note: Responsible Observer: MONO # (AUTO ) MONO # (AUTO) 100.1400 (A) Erythrocytes [#/volume] in Blood by Automated count 4.25 10\\^6/uL Normal RED BLOOD COUNT [place] ([facility]) Note: Responsible Observer: RBC RED BLOO D COUNT 100.0250 (A) Platelets [#/volume] in Plasma by Automated count 257 10\\^3/uL Normal PLATELET COUNT [place] ([facility]) Note: Responsible Observer: PLT PLATELET COUNT 100.0850 (A) MPV 9.1 FL Normal MPV [facility] ([facility]) Note: Responsible Observer: MPV MPV 100 .0950 (A) Erythrocyte distribution width [Ratio] by Automated count 12.4 % Normal RDW [place] ([facility]) Note: Responsible Observer: RDW RDW 100 .0700 (A) Leukocytes [#/volume] in Blood by Automated count 6.19 10\\^3/uL Normal WHITE BLOOD COUNT [place] ([facility]) Note: Responsible Observer: WBC WHITE BL OOD COUNT 100.0150 (A) ID Date Data Source [id number] 09/18/2020 10:29:00 AM EDT [facility] ([facility]) Name Value Range Interpretation Code Description Data Elise rce(s) Supporting Document(s) Calcidiol [Mass/volume] in Serum or Plasma 23.0 ng/ml Below low normal Vitamin D,25-HYDROXY [facility] ([facility]) Note: Vitamin D Status Rang e Deficiency <20 ng/ml Insufficiency 20-29.9 ng/ml Sufficiency 30-100 ng/ml Toxicity >100 ng/ml Patients should not be tested for 72 hours post fluorescein dye angiography. A false elevation of result may occur.Responsible Observer: Vitamin D Vitamin D,25-Hydroxy 300.5230 (A) ID Date Data Source [id number] 09/18/2020 02:30:00 PM EDT [facility] Name Value Range Interpretation Code Description Data Elise rce(s) Supporting Document(s) Vitamin D,25-HYDROXY 23.0 ng/ml 30-100 L [facility] Vitamin D Status Range De ficiency <20 ng/ml Insufficiency 20-29.9 ng/ml Sufficiency 30-100 ng/ml Toxicity >100 ng/ml Patients should not be tested for 72 hours post fluorescein dye angiography. A false elevation of result may occur. ID Date Data Source [id number] 09/18/2020 01:39:00 PM EDT [facility] Name Value Range Interpretation Code Description Data Elise rce(s) Supporting Document(s) WHITE BLOOD COUNT 6.19 10^3/uL 4.00-10.50 N [facility] RED BLOOD COUNT 4.25 10^6/uL 3.90-5.20 N [facility] th HEMOGLOBIN 11.6 G/DL 11.5-15.6 [facility] HEMATOCRIT 36.0 % 35.0-46.0 [facility] MCV 84.7 FL 80.0-100.0 [facility] MCH 27.3 PG 27.0-34.0 [facility] MCHC 32.2 G/DL 32-36 [facility] RDW 12.4 % 11.5-14.5 [facility] PLATELET COUNT 257 10^3/uL 130-400 N [facility] MPV 9.1 FL 8.7-13.2 N [facility] GRAN % (AUTO) 58.0 % 42.0-75.0 N [facility] LYMPH % (AUTO) 30.9 % 20.0-51.0 [facility] MONO % (AUTO) 4.8 % 2.0-15.0 N [facility] EOS % (AUTO) 5.2 % 0.0-11.0 N [facility] BASO % (AUTO) 0.8 % 0.0-2.0 N [facility] IG % (AUTO) 0.3 % 1.00-5.00 [facility] IG # (AUTO) 0.0 10^3/uL <0.5 [facility] GRAN # (AUTO) 3.59 10^3/uL 1.50-6.50 N [facility] LYMPH # (AUTO) 1.9 k/uL 1.0-5.0 N [facility] MONO # (AUTO) 0.30 k/uL 0.20-1.50 N [facility] EOS # (AUTO) 0.32 10^3/uL 0.00-1.10 N [facility] BASO # (AUTO) 0.05 10^3/uL 0.00-0.20 N [facility] ID Date Data Source [id number] 09/18/2020 01:50:00 PM EDT [facility] Name Value Range Interpretation Code Description Data Elise rce(s) Supporting Document(s) SODIUM 140 MEQ/L 135-145 N [facility] POTASSIUM 4.4 MEQ/L 3.5-5.3 [facility] CHLORIDE 107 MEQ/L 94-110 N [facility] CARBON DIOXIDE 27 MEQ/L 22-33 N [facility] ANION GAP 10 5-16 N [facility] BLOOD UREA NITRO 10 MG/DL 7-25 N [facility] CREATININE 0.7 MG/DL 0.6-1.4 N [facility] GFR > 90.0 ML/MIN [facility] Stage G1 - Normal or high kidney functi on The GFR is an estimate of the Glomerular Filtration Rate. It is an aid to assess a patient's renal function. It is not a conclusive diagnosis of kidney disease. GFR normal is >=90 The MDRD GFR calculation is considered valid between the ages of 18 and 75 years only. BUN/CREAT RATIO 14 8-36 N [facility] GLUCOSE 109 MG/DL 70-100 H [facility] CA 8.4 MG/DL 8.7-10.5 L [facility] BILIRUBIN,TOTAL 0.2 MG/DL 0.1-1.3 N [facility] AST 10 U/L 5-40 N [facility] ALT 12 U/L 5-48 N [facility] ALKALINE PHOSPHATASE 76 U/L 40-140 N [facility] alth TOTAL PROTEIN 6.2 G/DL 5.9-8.3 N [facility] ALBUMIN 4.2 G/DL 3.0-5.1 N [facility] GLOBULIN 2.0 G/DL 1.5-3.5 N [facility] ALB/GLOB RATIO 2.1 G/DL 1.0-3.0 N [facility] ID Date Data Source [id number] 09/18/2020 01:50:00 PM EDT [facility] Name Value Range Interpretation Code Description Data Elise rce(s) Supporting Document(s) TSH 5.116 uIU/ML 0.470-4.200 H [facility] Patients should not be tested for 72 ho urs post fluorescein dye angiography. A false depression of result may occur. Procedure Social History Code Duration Value Status Description Data Source(s ) Smoking 01/09/2021 12:00:00 AM EDT Never smoked tobacco (findi ng) completed Never smoked tobacco (finding) EMMA ([facility]) Smoking 11/10/2020 12:00:00 AM EDT Never Smoker completed Never S moker eCW1 ([facility]) Smoking 11/10/2020 12:00:00 AM EDT Never Smoker completed Never S moker eCW1 ([facility]) Smoking 10/16/2020 12:00:00 AM EDT Never Smoker completed Never S moker eCW1 ([facility]) Smoking 09/21/2020 12:00:00 AM EDT Never smoked tobacco (findi ng) completed Never smoked tobacco (finding) EMMA ([facility]) Smoking 09/21/2020 12:00:00 AM EDT Never smoked tobacco (findi ng) completed Never smoked tobacco (finding) [facility] ([facility]) Smoking 08/21/2020 12:00:00 AM EST Never Smoker completed Never S moker eCW1 ([facility]) Smoking 07/11/2020 12:00:00 AM EST Never smoked tobacco (findi ng) completed Never smoked tobacco (finding) [facility] ([facility]) Smoking 04/27/2020 12:00:00 AM EDT Never Smoker completed Never S moker eCW1 ([facility]) Smoking 04/27/2020 12:00:00 AM EDT Never Smoker completed Never S kiaraker eCW1 ([facility]) Vital Signs ID Date Data Source [id number] Name Value Range Interpretation Code Description Data Source(s) Systolic blood pressure 120 mm[Hg] 120 mm[Hg] M EDENT ([facility]) Diastolic blood pressure 80 mm[Hg] 80 mm[Hg] [facility]) Body temperature 98.4 [degF] 98.4 [degF] [facility] ([facility]) Body height 64 [in_i] 64 [in_i] [facility] ([facility]) 5'4" Body weight 225.00 [lb_av] 225.00 [lb_av] MEDEN T ([facility]) Body mass index (BMI) [Ratio] 38.6 kg/m2 38.6 k g/m2 [facility] ([facility]) [place] body weight 120 [lb_av] 120 [lb_av] MEDEN T ([facility]) Body weight 102.060 kg 102.060 kg [facility] ([facility]) Body surface area Derived from formula 2.06 m2 2.06 m2 [facility] ([facility]) Body weight 232 [lb_av] 232 [lb_av] eCW1 ([facility]) Body weight 105.[address] [facility] ([facility]) Body height 64 [in_i] 64 [in_i] W1 ([facility]) Body mass index (BMI) [Ratio] 39.82 kg/m2 39.82 kg/m2 W1 ([facility]) Systolic blood pressure 122 mm[Hg] 122 mm[Hg] e CW1 ([facility]) Diastolic blood pressure 76 mm[Hg] 76 mm[Hg] eCW1 ([facility]) Body weight 231 [lb_av] 231 [lb_av] eCW1 ([facility]) Body height 64 [in_i] 64 [in_i] eCW1 ([facility]) Body mass index (BMI) [Ratio] 39.65 kg/m2 39.65 kg/m2 eCW1 ([facility]) Systolic blood pressure 108 mm[Hg] 108 mm[Hg] e CW1 ([facility]) Diastolic blood pressure 64 mm[Hg] 64 mm[Hg] eCW1 ([facility]) Systolic blood pressure 112 mm[Hg] 112 mm[Hg] M EDENT ([facility]) Diastolic blood pressure 78 mm[Hg] 78 mm[Hg] MED[facility] ([facility]) Heart rate 88 /min 88 /min MEDENT ([facility]) Respiratory rate 16 /min 16 /min [facility] ( [facility]) Oxygen saturation in Arterial blood by Pulse oximetry 99 % 99 % [facility] ([facility]) Body temperature 99.8 [degF] 99.8 [degF] [facility] ([facility]) Body weight 210.00 [lb_av] 210.00 [lb_av] MEDEN T ([facility]) Body height 64 [in_i] 64 [in_i] MEDENT ([facility]) 5'4" Body mass index (BMI) [Ratio] 36.0 kg/m2 36.0 k g/m2 [facility] ([facility]) Body temperature 96.2 [degF] 96.2 [degF] [facility] AY ([facility]) Pt unable to obatin full set of vitals. [facility] PhenX - pain, abdominal - type and intensity protocol 0 0 [facility] ([facility]) Pt unable to obatin full set of vitals. [facility] Body weight 210 [lb_av] 210 [lb_av] eCW1 ([facility]) Body height 64 [in_i] 64 [in_i] eCW1 ([facility]) Body mass index (BMI) [Ratio] 36.04 kg/m2 36.04 kg/m2 eCW1 ([facility]) Systolic blood pressure 132 mm[Hg] 132 mm[Hg] e CW1 ([facility]) Diastolic blood pressure 76 mm[Hg] 76 mm[Hg] eCW1 ([facility]) Patient Treatment Plan of Care Planned Activity Planned Date Details Description Data Source (s) Hydroxyzine Hydrochloride 50 MG Oral Tablet 01/09/2021 12:00:00 AM EDT EMMA ([facility]) buspirone hydrochloride 5 MG Oral Tablet 01/09/2021 12:00:00 AM EDT EMMA ([facility]) Vitamin D (Ergocalciferol) 1.25 MG (26128 UT) Oral Cap casa 12/08/2020 12:00:00 AM EDT EMMA ([facility]) Trazodone Hydrochloride 50 MG Oral Tablet 11/23/2020 12:00:00 AM ED T EMMA ([facility]) Sertraline 100 MG Oral Tablet 11/23/2020 12:00:00 AM EDT EMMA ([facility]) Levothyroxine Sodium 0.075 MG Oral Tablet 09/21/2020 12:00:00 AM ED T EMMA ([facility]) Vitamin D (Ergocalciferol) 1.25 MG (07528 UT) Oral Cap casa 09/21/2020 12:00:00 AM EDT EMMA ([facility]) Levothyroxine Sodium 0.05 MG Oral Tablet 08/11/2020 12:00:00 AM EST [facility] ([facility]) buspirone hydrochloride 5 MG Oral Tablet 07/11/2020 12:00:00 AM EST [facility] ([facility]) Hydroxyzine Hydrochloride 50 MG Oral Tablet 07/11/2020 12:00:00 AM EST [facility] ([facility]) Sertraline 100 MG Oral Tablet [Zoloft] 04/28/2020 12:00:00 AM EDT eCW1 ([facility]) Levothyroxine Sodium 0.025 MG Oral Tablet [Synthroid] 04/28/2020 12:00:00 AM EDT eCW1 ([facility]) Sprintec 28 0.25-35 MG-MCG 04/28/2020 12:00:00 AM EDT eCW1 ([facility]) Levothyroxine Sodium 0.025 MG Oral Tablet [Synthroid] 04/28/2020 12:00:00 AM EDT eCW1 ([facility]) Sertraline 100 MG Oral Tablet [Zoloft] 04/28/2020 12:00:00 AM EDT eCW1 ([facility]) Sprintec 28 0.25-35 MG-MCG 04/28/2020 12:00:00 AM EDT eCW1 ([facility]) Levothyroxine Sodium 0.05 MG Oral Tablet 03/02/2019 12:00:00 AM EDT EMMA ([facility])
[2021-04-12] MEDS ORDERED: BUPIVACAINE HCL 0.25% 30ML VIAL As Ordered ONE (10:09)
[2021-04-12] MEDS ORDERED: MIDAZOLAM INJ 2MG/2ML VIAL (J2250 PER 1MG) As Ordered ONE (10:56)
[2021-04-12] MEDS ORDERED: ACETAMINOPHEN 1000MG 100ML IV BTL (OFIRMEV) (J0131 PER 10MG) As Ordered ONE (11:29)
[2021-04-12] MEDS ORDERED: METOCLOPRAMIDE INJ 10MG/2ML VIAL (J2765 PER 1) As Ordered ONE (11:33)
[2021-04-12] MEDS ORDERED: ONDANSETRON 4MG/2ML VIAL As Ordered ONE (11:58)
[2021-04-12] MEDS ORDERED: diphenhydrAMINE 50MG/ML VIAL (J1200) As Ordered ONE (12:26)
[2021-04-12] MEDS ORDERED: ACETAMINOPHEN 500 MG TAB PO PRN (12:30)
[2021-04-12] MEDS ORDERED: LR 1,000 ML IV SCH (12:30)
[2021-04-12] MEDS ORDERED: HYDROMORPHONE HCL 0.5 MG/ 0.5 ML SYRINGE (J1170 PER 1) IV PRN (12:30)
[2021-04-12] MEDS ORDERED: oxyCODONE 5MG TAB PO PRN (12:30)
[2021-04-12] MEDS ORDERED: diphenhydrAMINE 50MG/ML VIAL (J1200) IV PRN (12:30)
[2021-04-12] MEDS ORDERED: PROMETHAZINE INJ 25 MG/ML VIAL (J2550) IV PRN (12:30)
[2021-04-12] MEDS ORDERED: ONDANSETRON 4MG/2ML VIAL IV PRN (12:30)
[2021-04-12] MEDS: fentaNYL 100 MCG/2 ML INJECTION (J3010) IV PRN ×4 (12:32→13:31)
[2021-04-12 14:31] VITALS: BP 125/72
--- NOTE | 2021-04-13 08:02 | RO ---
OPERATIVE NOTE DATE OF OPERATION: 04/12/2021 PREOPERATIVE DIAGNOSIS: Symptomatic gallstones. POSTOPERATIVE DIAGNOSIS: Symptomatic gallstones. PROCEDURE PERFORMED: Robotic-assisted laparoscopic cholecystectomy. SURGEON: Mart Mccain MD GRAPHIC ARTIST: Sierra Martines (assistance was essential in management of the da Yuliana surgical robot with her assistance utilized for placement of the trocars, passage of instruments, change of instruments, retrieval of the gallbladder and closure of the incisions). ANESTHESIA: General. INDICATIONS FOR PROCEDURE: The patient is a 30-year-old woman with history of upper abdominal pain who was found to have cholelithiasis. She is now for robotic-assisted laparoscopic cholecystectomy. DESCRIPTION OF PROCEDURE: The patient was brought to the operating room and placed on the table in a supine position. She was placed under general endotracheal anesthesia. The patient's abdomen was prepped and draped in a sterile fashion. 0.25% Marcaine was infiltrated at each of the trocar sites as needed. An initial incision was made in the left upper quadrant. A Veress needle was inserted and with positive hanging drop test, insufflation was begun. However, insufflation pressures nadya somewhat and I elected to remove the Veress needle and replace this in supraumbilical midline position. At this point insufflation went without difficulty. An 8 mm robotic port was then placed through the left upper quadrant site. The laparoscope was placed. Initial examination showed a small amount of insufflation of gas into the omentum. The liver appeared normal. The fundus of the gallbladder was visible just below the edge of the liver. The visualized portions of the small and large bowel were normal. An 8 mm port was placed in the supraumbilical site and two additional 8 mm ports were placed in the right lower quadrant. The patient was tilted to an approximately 10-15 degree reverse Trendelenburg position and rolled slightly to the left. The patient cart of the da Yuliana Xi robot was brought into position and the endoscope arm was docked to the supraumbilical port. The camera was inserted and targeting took place in the right upper quadrant. The additional arms were then docked. A Hook cautery, fenestrated bipolar and grasping retractor were then inserted through the additional arms. I then moved to the control console to proceed. The fundus of the gallbladder was grasped and elevated. A few adhesions to the gallbladder were lysed with cautery. The edge of the liver elevated nicely and it was possible to identify the region of the gallbladder neck. The fibrofatty tissue surrounding the gallbladder was then dissected free using Hook cautery. The cholecystic artery was clearly identified and this was doubly clipped and divided. With a little further dissection the cystic duct was clearly identified and was also doubly clipped with Hem-o-yissel clips and divided. The gallbladder was then dissected from the gallbladder bed without perforation. The gallbladder was placed in an Endopouch. Small amount of blood in the subhepatic space was removed with gauze. Final inspection showed no evidence of bleeding or bile leak. The robotic instruments were withdrawn and the robot was undocked and withdrawn. I returned to the patient's side. The Endopouch was grasped through the supraumbilical site and the abdomen was deflated, the trocars were all removed. It was necessary to extend the fascial incision at the supraumbilical site slightly to allow passage of the gallbladder stones. This was sent for permanent pathology. The fascia was closed with a running suture of 2-0 PDS. The skin was closed with buried sutures of 4-0 Vicryl and Steri-Strips. Light dressings were applied. The patient tolerated the procedure well without apparent complication. She was awakened in the operating room, extubated and moved to the recovery room in stable condition.
== END 2021-04-12 14:31 | disposition home or self-care (01) ==
LOC: M SDC 08:35
PROVIDERS: ATTEND Surgery
DX: K80.20 Calculus of gallbladder without cholecystitis without obstruction (principal); E03.9 Hypothyroidism, unspecified; K21.9 Gastro-esophageal reflux disease without esophagitis; F41.9 Anxiety disorder, unspecified; F32.9 Major depressive disorder, single episode, unspecified; Z79.899 Other long term (current) drug therapy; Z88.1 Allergy status to other antibiotic agents
CPT/HCPCS: 47562; 88304; J0131; J1100; J1885; J2250; J2405; J2765; J3010; S2900

== ENCOUNTER 2021-04-17 20:12 | Emergency (ER) | payer OTHER ==
[~2021-04-17] VITALS: Ht 162.6 cm; Wt 106.7 kg
[~2021-04-17 20:12] MED LIST changes: -IBUP200T45 PO; +IBUP200T46 PO; -KETOROLAC 60MG 2ML VIAL As Ordered ONE; -LIDOCAINE 1% MDV 20ML VIAL SQ PRN; -LIDOCAINE 2% 100MG/5ML SDV (FOR ANES.) As Ordered ONE; -LR 1,000 ML IV ONE; -MIDAZOLAM INJ 2MG/2ML VIAL (J2250 PER 1MG) As Ordered ONE; -ONDANSETRON 4MG/2ML VIAL As Ordered ONE; -ROCURONIUM BROMIDE 50 MG/5 ML VIAL As Ordered ONE; -SUGAMMADEX SODIUM 500 MG/5 ML VIAL (BRIDION) As Ordered ONE; -dexameTHASONE 4 MG/ML 1ML VIAL (J1100 PER 1MG) As Ordered ONE; -fentaNYL 100 MCG/2 ML INJECTION (J3010) As Ordered ONE; -propofoL 200 MG/20 ML VIAL As Ordered ONE
[2021-04-17 20:15] VITALS: BP 131/89
--- OUTSIDE RECORDS SUMMARY | 2021-04-17 20:21 | CCD ---
Author Author [facility] Organization [facility] Address Unknown Phone Unavailable Care Team Providers [employer] Miller Name Role Phone Mcknight, Jeni INTERNATIONAL NURSE Unavailable Unavailable Mcknight, Jeni INTERNATIONAL NURSE Unavailable Unavailable Mcknight, Jeni INTERNATIONAL NURSE Unavailable Unavailable Mcknight, Jeni INTERNATIONAL NURSE Unavailable Unavailable Mcknight, Jeni INTERNATIONAL NURSE Unavailable Unavailable Mcknight, Jeni INTERNATIONAL NURSE Unavailable Unavailable Mcknight, Jeni INTERNATIONAL NURSE Unavailable Unavailable Mcknight, Jeni INTERNATIONAL NURSE Unavailable Unavailable Mcknight, Jeni INTERNATIONAL NURSE Unavailable Unavailable Mcknight, Jeni INTERNATIONAL NURSE Unavailable Unavailable Mcknight, Jeni INTERNATIONAL NURSE Unavailable Unavailable Mcknight, Jeni INTERNATIONAL NURSE Unavailable Unavailable Mcknight, Jeni INTERNATIONAL NURSE Unavailable Unavailable [place], Keren INTERNATIONAL NURSE Unavailable Unavailable [place], Keren INTERNATIONAL NURSE Unavailable Unavailable Efren, Keren INTERNATIONAL NURSE Unavailable Unavailable Efren, Keren INTERNATIONAL NURSE Unavailable Unavailable Efren, Keren INTERNATIONAL NURSE Unavailable Unavailable [place], Keren INTERNATIONAL NURSE Unavailable Unavailable Efren, Keren INTERNATIONAL NURSE Unavailable Unavailable [place], Keren INTERNATIONAL NURSE Unavailable Unavailable Efren, Keren INTERNATIONAL NURSE Unavailable Unavailable Efren, Keren INTERNATIONAL NURSE Unavailable Unavailable Efren, Keren INTERNATIONAL NURSE Unavailable Unavailable [place], Keren INTERNATIONAL NURSE Unavailable Unavailable [place], Keren INTERNATIONAL NURSE Unavailable Unavailable Renetta Daugherty DO Unavailable Unavailable [...] Carguello, J Aaron DO Unavailable Unavailable Barton, [place] Cira Unavailable Unavailable Barton, [place] Cira Unavailable Unavailable Barton, [place] Cira Unavailable Unavailable Barton, [place] Cira Unavailable Unavailable Barton, [place] Cira Unavailable Unavailable Barton, [place] Cira Unavailable Unavailable Barton, [place] Cira Unavailable Unavailable [place], [place] Cira Unavailable Unavailable Barton, [place] Cira Unavailable Unavailable Barton, [place] Cira Unavailable Unavailable Barton, [place] Cira Unavailable Unavailable Barton, [place] Ciar Unavailable Unavailable Barton, [place] Cira Unavailable Unavailable Re-disclosure Warning The records [...] is protected by Article 27-F of the [facility] Public Health law. If you continue you may have access to information: Regarding HIV / AIDS; Provided by facilities licensed or operated by the [facility] Office of Mental Health; or Provided by the [facility] Office for People With Developmental Disabilities. If such information is present, then the following [facility] mandated warning applies: This information has been [...] Allergy to substance Allergy to substance YAHAIRA ([facility]) Allergy to substance Allergy to substance Allergy to substance [place] ([facility]) Drug Allergy Drug Allergy NKDA MEDENT ([facility]) Family History Family Member Name Family Member Gender Family Member Status Date o f Status Description Data Source(s) Unknown Unknown Problem MEDENT ([facility]) Unknown Unknown Problem MEDENT ([facility] Unknown Unknown Encounters Encounter Providers Location Date Indications Data Source(s ) Outpatient Attender: Aaron Daugherty DO 03/28/2021 10:28 :00 AM EDT Lab [facility] Lab Unknown [address] [facility] [address] 02/26/2021 12:00:00 AM EDT eCW1 ([facility]) Outpatient<td ID="encounterTypeDescripti onID0">Primary Care Telehealth FaceTime</td><td>Aaron Daugherty DO</td><td>[facility]</td><td>01/09/2021</td><td>10:50AM</td><td>11:27AM</td><td><content ID="encounterDiagnosisID0-0">Depression</content>, <content ID="encounterDiagnosisID0-1">Generalized Anxiety Disorder</content>, <content ID="encounterDiagnosisID0-2">Hypothyroidism</content>, <content ID="encounterDiagnosisID0-3">Vitamin D Deficiency</content></td> Attender: Aaron Daugherty DO [facility] 01/09/2021 10:50:00 AM EDT - 01/09/2021 11:27:00 AM EDT Vitamin D DeficiencyHypothyroidismGenera lized Anxiety DisorderDepression [facility] ([facility] Vitamin D Deficiency Hypothyroidism Generalized Anxiety Disorder Depression <td ID="encounterTypeDescriptionID0">Carito rt Update</td><td>Fanny Cm RN</td><td></td><td>11/23/2020</td><td>2:55PM</td><td>11:59PM</td><td></td>Unkno Attender: Fanny Cm RN 11/23/2020 02 :55:00 PM EDT - 11/23/2020 11:59:00 PM EDT [facility] ([facility] Outpatient<td ID="encounterTypeDescripti onID0">Primary Care Telehealth FaceTime</td><td>Aaron Daugherty DO</td><td>[facility]</td><td>11/23/2020</td><td>10:50AM</td><td>12:12PM</td><td><content ID="encounterDiagnosisID0-0">Hypothyroidism</content>, <content ID="encounterDiagnosisID0-1">Generalized Anxiety Disorder</content>, <content ID="encounterDiagnosisID0-2">Depression</content>, <content ID="encounterDiagnosisID0-3">Vitamin D Deficiency</content>, <content ID="encounterDiagnosisID0-4">Primary Insomnia</content></td> Attender: Aaron Daugherty DO [facility] 11/23/2020 10:50:00 AM EDT - 11/23/2020 12:12:06 PM EDT Primary InsomniaVitamin D DeficiencyGene ralized Anxiety DisorderHypothyroidismDepression [facility]ELDRIM ([facility]) Primary Insomnia Vitamin D Deficiency Generalized Anxiety Disorder Hypothyroidism Depression Outpatient Attender: Aaron Daugherty DO 11/14/2020 10:15 :00 AM [facility]T [facility] [address] [facility] [address] 11/10/2020 12:00:00 AM EDT eCW1 ([facility]) MAI Ramey-C: [address] [place] [address], Ph. Attender: Cira Barton [facility] 11/07/2020 12:00:00 AM EDT YAHAIRA ([facility]) Outpatient [address] [facility] [address] 10/16/2020 12:00:00 AM EDT eCW1 ([facility]) MAI Ramey-C: [address] [place] [address], Ph. Attender: Cira Barton [facility] 10/10/2020 12:00:00 AM EDT YAHAIRA ([facility]) LEEANN RameyC: [address] [place] [address], Ph. Attender: Cira Barton [facility] 10/10/2020 12:00:00 AM EDT YAHAIRA ([facility]) Outpatient Attender: Jeni martinez 09/28/2020 12:00:00 PM EDT MEDENT ([facility] Car e, [facility]) Outpatient<td ID="encounterTypeDescripti onID0">Primary Care Telehealth FaceTime</td><td>Aaron Daugherty DO</td><td>[facility]</td><td>09/21/2020</td><td>10:40AM</td><td>11:59PM</td><td><content ID="encounterDiagnosisID0-0">Hypothyroidism</content>, <content ID="encounterDiagnosisID0-1">Depression</content>, <content ID="encounterDiagnosisID0-2">Generalized Anxiety Disorder</content>, <content ID="encounterDiagnosisID0-3">Vitamin D Deficiency</content></td> Attender: Aaron Daugherty DO [facility] 09/21/2020 10:40:00 AM EDT - 09/21/2020 11:59:00 PM EDT Vitamin D DeficiencyGeneralized Anxiety DisorderHypothyroidismDepression [facility] ([facility]) Vitamin D Deficiency Generalized Anxiety Disorder Hypothyroidism Depression Outpatient Attender: Keren Schwartz NPAttender: Aaron sandoval DO 09/18/2020 10:24:00 AM EDT lab [facility] lab Unknown [address] [facility] [address] 08/31/2020 12:00:00 AM EST [facility] Unknown [address] [facility] [address] 07/14/2020 12:00:00 AM EST eCW1 [facility] Outpatient<td ID="encounterTypeDescripti onID3">Telephonic Encounter</td><td>Aaron Daugherty DO</td><td>[facility]</td><td>07/11/2020</td><td>06/27/2020 7:00PM</td><td>6:06PM</td><td> <content ID="encounterDiagnosisID3-0">Depression</content>, <content ID="encounterDiagnosisID3-1">Generalized Anxiety Disorder</content>, <content ID="encounterDiagnosisID3-2">Hypothyroidism</content></td> Attender: Aaron Daugherty DO [facility] 06/27/2020 07:00:00 PM EST - 07/11/2020 06:06:23 PM EST HypothyroidismGeneralized Anxiety Disord erHypothyroidismGeneralized Anxiety DisorderDepressionDepression [facility] ([facility]) Hypothyroidism Generalized Anxiety Disorder Hypothyroidism Generalized Anxiety Disorder Depression Depression Unknown<td ID="encounterTypeDescriptionI D4">Chart Prep</td><td>Aaron Daugherty DO</td><td></td><td>07/04/2020</td><td>06/27/2020 4:40PM</td><td>06/27/2020 11:59PM</td><td></td> Attender: Aaron Daugherty DO 06/27/2020 04:40:00 PM EST - 06/27/2020 11:59:00 PM EST [facility] ([facility]) <td ID="encounterTypeDescriptionID0">Tel ephonic Encounter</td><td>Aaron Daugherty DO</td><td>[facility]</td><td>08/24/2020</td><td>06/27/2020 3:50PM</td><td>4:29PM</td><td><content ID="encounterDiagnosisID0- 0">Fatigue</content>, <content ID="encounterDiagnosisID0- 1">Hypothyroidism</content>, <content ID="encounterDiagnosisID0-2">Generalized Anxiety Disorder</content>, <content ID="encounterDiagnosisID0-3">Depression</content></td>Outpatient Attender: Aaron Daugherty DO [facility] 06/27/2020 03:50:00 PM EST - 08/24/2020 04:29:00 PM EST FatigueGeneralized Anxiety DisorderHypothyroidismDepre ssion [facility] ([facility]) Fatigue Generalized Anxiety Disorder Hypothyroidism Depression Unknown<td ID="encounterTypeDescriptionI D2">Chart Update</td><td>Fanny Cm RN</td><td></td><td>07/20/2020</td><td>06/27/2020 3:44PM</td><td>07/11/2020 11:59PM</td><td></td> Attender: Fanny Cm RN 06/27/2020 03:44:00 PM EST - 07/11/2020 11:59:00 PM EST [facility] ([facility]) <td ID="encounterTypeDescriptionID1">Carito rt Update</td><td>Keren Schwartz NP</td><td></td><td>08/11/2020</td><td>06/27/2020 9:15AM</td><td>07/11/2020 11:59PM</td><td><content ID="encounterDiagnosisID1-0">Hypothyroidism</content></td>Unknown Attender: Keren Schwartz NP 06/27/2020 09:15:00 AM EST - 07/11/2020 11:59:00 PM EST HypothyroidismHypothyroidism [facility] ([facility]) Hypothyroidism Hypothyroidism Unknown<td ID="encounterTypeDescriptionI D5">D Dental Office Visit - 30</td><td>Kylie Adkins DDS</td><td>[facility]</td><td>06/27/2020</td><td>7:49AM</td><td>8:26AM</td><td></td> Attender: Kylie Adkins DDS [facility] 06/27/2020 07:49:00 AM EST - 06/27/2020 08:26:00 AM EST [facility] ([facility]) Outpatient [address] [facility] [address] 04/28/2020 12:00:00 AM EDT [facility] ([facility]) Immunizations Vaccine Date Status Description Data Source(s) COVID-19, mRNA, LNP-S, PF, 100 mcg/0.5 mL dose 11/07/2020 05 :16:54 PM EDT completed .5 mL [facility]) Moderna COVID-19 11/07/2020 02:56:00 PM EDT completed <td ID="Pgrcdhhaahrga-Iqppehmujtw-AT4">Moderna COVID-19</td><td ID="ImmunizationDose-1">2</td><td>11/07/2020</td><td ID="Jktvdvbffgdua-LuchyDvqe-OO7"></td><td></td><td ID="Mmzepfgsemsna-Hfisok-PD2">Complete (Reported)</td><td>Patient</td><td ID="Oxqvglchaiaim-Ylncq-Amyw-Comment-ID1"></td> EM[facility] ([facility]) COVID-19 VACCINE Moderna 11/07/2020 12:00:00 AM EDT completed [employer] Vaccine Series Complete: YESThis Data wa s Submitted to [facility] Via [employer]. COVID-19, mRNA, LNP-S, PF, 100 mcg/0.5 mL dose 10/10/2020 05 :22:23 PM EDT completed .5 mL [place] ([facility]) COVID-19, mRNA, LNP-S, PF, 100 mcg/0.5 mL dose 10/10/2020 05 :22:23 PM EDT completed .5 mL [place] ([facility]) Moderna COVID-19 10/10/2020 02:56:00 PM EDT completed <td ID="Rbnqpjwkdwfeg-Fwvobbqptuk-OF6">Moderna COVID-19</td><td ID="ImmunizationDose-0">1</td><td>10/10/2020</td><td ID="Mxiqbgvntviik-PqoaxXofd-EW4"></td><td></td><td ID="Lnhfvandxoxii-Qynukz-CT6">Complete (Reported)</td><td>Patient</td><td ID="Eiarkqltetedp-Kvyhe-Bkbf-Comment-ID0"></td> [facility] ([facility]) COVID-19 VACCINE Moderna 10/10/2020 12:00:00 AM EDT completed [facility] Vaccine Series Complete: NOThis Data was Submitted to [facility] Via [email or web address]. Medications Medication Brand Name Start Date Product [...] [facility] Vitamin D (Ergocalciferol) 1.25 MG (23473 UT) Oral Cap casa Vitamin D (Ergocalciferol) 1.25 MG (09743 UT) Oral Capsule 12/08/2020 12:00:00 AM EDT [...] [facility] Vitamin D (Ergocalciferol) 1.25 MG (83789 UT) Oral Cap casa Vitamin D (Ergocalciferol) 1.25 MG (14207 UT) Oral Capsule 09/21/2020 12:00:00 AM EDT [...] levothyroxine sodium 0.05 MG Ora l Tablet EMAM ([facility]) buspirone hydrochloride 5 MG Oral Tablet BUSPIRONE HCL 07/12/2020 12:00:00 AM EST tablet 60 TAKE ONE TABLET BY MOUTH TWI CE A DAY TAKE ONE TABLET BY MOUTH TWICE A DAY SOLD: 12/09/2020 [facility] buspirone hydrochloride 5 MG [...] BY MOUTH TWICE A DAY SOLD: 07/12/2020 [facility] 50 mg 07/12/2020 12:00:00 AM [...] 12:00:00 AM EDT 1.0 {tablet} active eCW1 ([facility]) Sprintec 28 0.25-35 MG-MCG Sprintec 28 0.25-35 MG-MCG 2019 12:00:00 AM EDT 1.0 {tablet} active Sprintec 28 0.25-35 MG-MCG eCW1 ([facility]) Sprintec 28 0.25-35 MG-MCG Sprintec 28 0.25-35 MG-MCG 2019 12:00:00 AM EDT 1.0 {tablet} active Sprintec 28 0.25-35 MG-MCG eCW1 ([facility]) Levothyroxine Sodium 0.025 MG Oral Tablet [Synthroid] Synthroid 25 MCG Synthroid 25 MCG 04/28/2020 12:00:00 AM EDT active Synthroid 25 MCG eCW1 ([facility]) Sertraline 100 MG Oral Tablet [Zoloft] Zoloft 100 MG Zoloft 100 MG 04/28/2020 12:00:00 AM EDT 1.0 {tablet} active Zo loft 100 MG eCW1 ([facility]) Sprintec 28 0.25-35 MG-MCG Sprintec 28 0.25-35 MG-MCG 2019 12:00:00 AM EDT 1.0 {tablet} suspended e CW1 ([facility]) Sprintec 28 0.25-35 MG-MCG Sprintec 28 0.25-35 MG-MCG 2019 12:00:00 AM EDT 1.0 {tablet} active Sprintec 28 0.25-35 MG-MCG eCW1 ([facility]) Sertraline 100 MG Oral Tablet [Zoloft] Zoloft 100 MG Zoloft 100 MG 04/28/2020 12:00:00 AM EDT 1.0 {tablet} active Zo loft 100 MG eCW1 ([facility]) Levothyroxine Sodium 0.025 MG Oral Tablet [Synthroid] Synthroid 25 MCG Synthroid 25 MCG 04/28/2020 12:00:00 AM EDT active eCW1 ([facility]) Sprintec 28 0.25-35 MG-MCG Sprintec 28 0.25-35 MG-MCG 2019 12:00:00 AM EDT 1.0 {tablet} active Sprintec 28 0.25-35 MG-MCG eCW1 ([facility]) Levothyroxine Sodium 0.025 MG Oral Tablet [Synthroid] Synthroid 25 MCG Synthroid 25 MCG 04/28/2020 12:00:00 AM EDT active Synthroid 25 MCG eCW1 ([facility]) Sertraline 100 MG Oral Tablet [Zoloft] Zoloft 100 MG Zoloft 100 MG 04/28/2020 12:00:00 AM EDT 1.0 {tablet} active Zo loft 100 MG eCW1 ([facility]) Levothyroxine Sodium 0.025 MG Oral Tablet [Synthroid] Synthroid 25 MCG Synthroid 25 MCG 04/28/2020 12:00:00 AM EDT active Synthroid 25 MCG eCW1 ([facility]) Sprintec 28 0.25-35 MG-MCG Sprintec 28 0.25-35 MG-MCG 2019 12:00:00 AM EDT 1.0 {tablet} suspended Sprintec 28 0.25-35 MG-MCG eCW1 ([facility]) Sertraline 100 MG Oral Tablet [Zoloft] Zoloft 100 MG Zoloft 100 MG 04/28/2020 12:00:00 AM EDT 1.0 {tablet} active Zo loft 100 MG eCW1 ([facility]) Levothyroxine Sodium 0.025 MG Oral Tablet [Synthroid] Synthroid 25 MCG Synthroid 25 MCG 04/28/2020 12:00:00 AM EDT active Synthroid 25 MCG eCW1 ([facility]) Levothyroxine Sodium 0.025 MG Oral Tablet [Synthroid] Synthroid 25 MCG Synthroid 25 MCG 04/28/2020 12:00:00 AM EDT active Synthroid 25 MCG eCW1 ([facility]) Sertraline 100 MG Oral Tablet [Zoloft] Zoloft 100 MG Zoloft 100 MG 04/28/2020 12:00:00 AM EDT 1.0 {tablet} active Zo loft 100 MG eCW1 ([facility]) 50 mcg 03/25/2020 12:00:00 AM EDT tablet [...] sodium 0.05 MG Ora l Tablet [facility] ([facility]) [facility] 27-0.8MG Oral Tablet [facility] 27-0.8MG Oral Tablet 01/11/2019 12:00:00 AM EDT 1 aborted [facility] Pre serene [facility] ([facility]) Insurance Providers Payer name Policy type / Coverage type Policy ID Covered green party ID Covered green party's relationship to jiang Policy Jiang Plan Information BCBS [facility] Other 0 [id number] [facility] [address] [facility] Other 0 [id number] [facility] 0 BLUE CROSS [id number] SPO [id number] SELF PAY Financial Assistance 50% SP [employer] [place] Other 0 [id number] Self 0 [place] Other 0 [id number] Self 0 [place] Other 0 [id number] Self 0 [place] Other 0 [id number] Self 0 BLUE CROSS [id number] SPO [id number] Financial Assistance 50% SP SELF PAY SELF PAY [place]UE [place] [id number] SPO [id number] [facility] COMMUNITY PLAN [id number] SP [id number] [facility] [id number] SP [id number] SELF PAY [facility] COMMUNITY PLAN [id number] SP [id number] SELF PAY [facility] PLAN [id number] SP [id number] BCBS OF [place] 306/806 [id number] [id number] [facility] Medigap Part B [id number] Family Dependent [id number] [facility] Maintenance [facility] ([facility]) [id number] Self [id number] [facility] Maintenance [facility] ([facility]) [id number] Family Dependent [id number] Financial Assistance Self Pay SP [facility] Maintenance Organization ([facility]) [id number] Family Dependent [id number] [facility] ([facility]) [id number] Family Dependent [id number] [facility] B [id number] S [id number] [employer] BCBS Health Maintenance Organization (HMO) [id number] Family Dependent Medicaid [place] Medigap Part B [id number] Self [employer] Blue Cross Commercial [id number] Family Dependent Medicaid [place] Medigap Part B [id number] Self BC/BS Of [place] Commercial [id number] Family Depende nt MEDICAID M [id number] S [id number] [employer] BCBS B [id number] C GLX [id number] BCBS OF [place] [id number] FA2 [id number] BCBS OF [place] 306/806 [id number] [id number] SELF PAY UNAVAILABLE UNAVAILA BLE MEDICAID - CLINIC [id number] UN COMMUNITY PLAN [facility] [id number] SP [id number] BLUE [facility] [id number] UN COMMUNITY PLAN [facility] [id number] SP [id number] [place] [id number] SP [id number] E UnitedHealthcare Other 0 [id number] Self 0 UnitedHealthcare Other 0 [id number] Self 0 UnitedHealthcare Other 0 [id number] Self 0 UnitedHealthcare Other 0 [id number] Self 0 UnitedHealthcare Other 0 [id number] Self 0 UnitedHealthcare Other 0 [id number] Self 0 UNITED HEALTHCARE(MCAID) O [id number] S [id number] MEDICAID [id number] SP [id number] [place]BS OF [place] 306/806 [id number] SP [id number] BCBS [place] PPO 302/307 [id number] SP [id number] BCBS [place] PPO 302/307 [id number] SP [id number] [employer] BCBS Medigap Part B [id number] Family Dependent [id number] [employer] BCBS Health Maintenance Organization (HMO) [id number] [facility] [id number] BCBS [place] 306/806 [id number] [place] 306/806 [id number] SP [id number] [place] 306/806 [id number] SP [id number] Problems, Conditions, and Diagnoses Code Display Name Description Problem Type Effective Dates Data Source(s) E03.9 Hypothyroidism, unspecified E03.9 - Hypothyroidism, un specified Diagnosis 09/18/2020 10:24:00 AM EDT [place] SPARK F41.1 Generalized anxiety disorder F41.1 - Generalized anxiety disorder Diagnosis 09/18/2020 10:24:00 AM EDT [facility] 268.9 Vitamin D Deficiency Vitamin D Deficiency Problem 09/21/2020 12:53:00 PM EDT [employer] ([facility]) 268.9 Vitamin D Deficiency Vitamin D Deficiency Problem 09/21/2020 12:53:00 PM EDT [employer] ([facility] 268.9 Vitamin D Deficiency Vitamin D Deficiency Problem 09/21/2020 12:53:00 PM EDT [employer] ([facility]) 268.9 Vitamin D Deficiency Vitamin D Deficiency Problem 09/21/2020 12:53:00 PM EDT [employer] ([facility] E03.9 [id number] Hypothyroid Problem 04/28/2020 12:00:00 AM E DT eCW1 ([facility]) Surgeries/Procedures Procedure Description Date Indications Data Source(s) Summary provided electronically in CCDA format & reasonable certainty of receipt 01/09/2021 12:00:00 AM EDT - 01/09/2021 12:00:00 AM EDT [facility] ([facility]) Clinical summary provided to patient 12:00:00 AM EDT - 01/09/2021 12:00:00 AM EDT [facility] ([facility]) Clinical summary provided to patient 12:00:00 AM EDT - 01/09/2021 12:00:00 AM EDT [facility] ([facility]) medical regimen review 01/09/2021 12:00: [...] EDT - 09/21/2020 12:00:00 AM EDT [facility] ([facility]) Clinical summary provided to patient 12:00:00 AM EDT - 09/21/2020 12:00:00 AM EDT [facility] ([facility]) medical regimen review 09/21/2020 12:00: 00 AM EDT - 09/21/2020 12:00:00 AM EDT [facility] ([facility]) Transition in care medication list update 09/21/2020 12:00:00 AM EDT - 09/21/2020 12:00:00 AM EDT [facility] ([facility]) continue current medication except where otherwise noted 09/21/2020 12:00:00 AM EDT - 09/21/2020 12:00:00 AM EDT [facility] ([facility]) Oral Cancer Screening Oral Cancer Screening 06/27/2020 12:00:00 AM EST [facility] ([facility]) Periodic Oral Evaluation Periodic Oral Evaluation 06/27/2020 12:00: 00 AM EST [facility] ([facility]) [facility] - 4 radiographic images [facility] - 4 radiographic i mages 06/27/2020 12:00:00 AM EST [facility] ([facility]) Periodic Oral Evaluation, [facility] Periodic Oral Evaluati on, [facility] 06/27/2020 12:00:00 AM EST [facility] ([facility]) Results ID Date Data Source [id number] 03/28/2021 01:57:00 PM [facility] Name Value Range Interpretation Code Description Data Elise rce(s) Supporting Document(s) TSH 2.517 uIU/ML 0.470-4.200 N [facility] Patients should not be tested for 71 ho urs post fluorescein dye angiography. A false depression of result may occur. ID Date Data Source [id number] 11/14/2020 11:43:00 AM EDT [facility] ([facility]) Name Value Range Interpretation Code Description Data Elise rce(s) Supporting Document(s) Thyrotropin [Units/volume] in Serum or Plasma by Detec tion limit <= 0.05 mIU/L 0.537 uIU/ML Normal TSH [facility]ELDRIM ([facility]) Note: Patients should not be tested for 72 hours post fluorescein dye angiography. A false depression of result may occur.Responsible Observer: TSH TSH 300.5500 (A) ID Date Data Source [id number] 11/14/2020 05:20:00 PM EDT [facility] Name Value Range Interpretation Code Description Data Elise rce(s) Supporting Document(s) TSH 0.537 uIU/ML 0.470-4.200 N [facility] Patients should not be tested for 72 ho urs post fluorescein dye angiography. A false depression of result may occur. ID Date Data Source [id number] 10/22/2020 08:25:00 AM EDT [facility] Name Value Range Interpretation Code Description Data Elise rce(s) Supporting Document(s) SARS-CoV-2 (COVID-19) RNA [Presence] in Respiratory specimen by ANN with probe detection Not Detected [facility] This lab was ordered by [facility] and reported by [employer]. ID Date Data Source [id number] 09/28/2020 12:00:00 AM EDT [facility] Name Value Range Interpretation Code Description Data Elise rce(s) Supporting Document(s) SARS-CoV2 Rapid Antigen Negative [facility] This lab was reported by [facility]. ID Date Data Source [id number] 09/18/2020 10:29:00 AM EDT [employer] [facility] Name Value Range Interpretation Code Description Data Elise rce(s) Supporting Document(s) Thyrotropin [Units/volume] in Serum or Plasma by Detec tion limit <= 0.05 mIU/L 5.116 uIU/ML Above high normal TSH MELDRIM ([facility]) Note: Patients should not be tested for 72 hours post fluorescein dye angiography. A false depression of result may occur.Responsible Observer: TSH TSH 300.5500 (A) ID Date Data Source [id number] 09/18/2020 10:29:00 AM EDT [employer] ([employer]) Name Value Range Interpretation Code Description Data Elise rce(s) Supporting Document(s) Alanine aminotransferase [Enzymatic activity/volume] in Seru m or Plasma 12 U/L Normal ALT MELDRIM ([facility]) Note: Responsible Observer: ALT/SGPT ALT 300.3100 (A) Alkaline phosphatase isoenzyme [Units/volume] in Serum or Plasma 76 U/L Normal ALKALINE PHOSPHATASE [facility] ([facility]) Note: Responsible Observer: ALK PHOS ALK JOSE MARIA PHOSPHATASE 300.3110 (A) Albumin [Mass/volume] in Synovial fluid 4.2 G/DL Normal ALBUMIN [facility] ([facility]) Note: Responsible Observer: ALB ALBUMIN 300.3900 (A) Albumin/Globulin [Mass Ratio] in Amniotic fluid 2.1 G/DL Normal ALB/GLOB RATIO [facility] ([facility]) Note: Responsible Observer: A/G RATIO AL B/GLOB RATIO 300.4100 (A) Aspartate aminotransferase [Enzymatic activity/volume] in Serum or Plasma 10 U/L Normal AST [facility] ([facility]) Note: Responsible Observer: AST/SGOT AST 300.3050 (A) Bilirubin.total [Mass/volume] in Serum or Plasma 0.2 MG/DL Normal BILIRUBIN,TOTAL [facility] ([facility]) Note: Responsible Observer: TOTAL BILI T OTAL BILIRUBIN 300.2700 (A) Urea nitrogen/Creatinine [Mass Ratio] in Serum or Plasma 14 Normal BUN/CREAT RATIO [facility] ([facility]) Note: Responsible Observer: BUN/CREAT RA TOR BUN/CREAT RATIO 300.0450 (A) BLOOD UREA NITRO 10 MG/DL Normal BLOOD UREA NITRO [facility] ([facility]) Note: Responsible Observer: BUN BLOOD UR EA NITROGEN 300.0350 (A) CA 8.4 MG/DL Below low normal CA [facility] ([facility]) Note: Responsible Observer: CA CALCIUM 300.2200 (A) Chloride [Moles/volume] in Serum, Plasma or Blood 107 MEQ/L Normal CHLORIDE [facility] ([facility]) Note: Responsible Observer: CL CHLORIDE 300.0200 (A) Carbon dioxide, total [Moles/volume] in Serum or Plasma 27 MEQ/L Normal CARBON DIOXIDE [facility] ([facility]) Note: Responsible Observer: CO2 CARBON D IOXIDE 300.0250 (A) Creatine/Creatinine [Mass Ratio] in Urine 0.7 MG/DL Brenda l CREATININE [facility] ([facility]) Note: Responsible Observer: CREAT CREATI NINE 300.0400 (A) Globulin [Mass/volume] in Serum by calculation 2.0 G/DL Normal GLOBULIN [facility] ([facility]) Note: Responsible Observer: GLOB GLOBULI N 300.4050 (A) Anion gap in Blood 10 Normal ANION GAP [facility] ([facility]) Note: Responsible Observer: ANION GAP AN ION GAP 300.0300 (A) GFR > 90.0 ML/MIN GFR [facility] ([facility]) Note: Stage G1 - Normal or high [...] or Blood 140 MEQ/L Normal SODIUM [facility] ([facility]) Note: Responsible Observer: NA SODIUM 3 00.0100 (A) Glucose [Presence] in Urine 109 MG/DL Above high normal G LUCOSE [facility] ([facility]) Note: Responsible Observer: GLU GLUCOSE 300.0500 (A) Protein [Mass/volume] in Synovial fluid 6.2 G/DL Normal TOTAL PROTEIN [facility] ([facility]) Note: Responsible Observer: TP TOTAL PRO TEIN 300.3750 (A) Potassium [Mass/volume] in Blood 4.4 MEQ/L Normal POT ASSIUM [facility] ([facility]) Note: Responsible Observer: K POTASSIUM 300.0150 (A) ID Date Data Source [id number] 09/18/2020 10:29:00 AM EDT [facility] ([facility]) Name Value Range Interpretation Code Description Data Elise rce(s) Supporting Document(s) BASO # (AUTO) 0.05 10\\^3/uL Normal BASO # (AUTO) [facility] ([facility]) Note: Responsible Observer: BASO # (AUTO ) BASO # (AUTO) 100.1500 (A) BASO % (AUTO) 0.8 % Normal BASO % (AUTO) [facility] ([facility]) Note: Responsible Observer: BASO % (AUTO ) BASO % (AUTO) 100.1250 (A) EOS # (AUTO) 0.32 10\\^3/uL Normal EOS # (AUTO) [facility] ( [facility]) Note: Responsible Observer: EOS # (AUTO) EOS # (AUTO) 100.1450 (A) GRAN % (AUTO) 58.0 % Normal GRAN % (AUTO) [facility] ([facility]) Note: Responsible Observer: GRAN % (AUTO ) GRAN % (AUTO) 100.1000 (A) GRAN # (AUTO) 3.59 10\\^3/uL Normal GRAN # (AUTO) [facility] ([facility]) Note: Responsible Observer: GRAN # (AUTO ) GRAN #(AUTO) 100.1325 (A) EOS % (AUTO) 5.2 % Normal EOS % (AUTO) [facility] ([facility]) Note: Responsible Observer: EOS % (AUTO) EOS % (AUTO) 100.1200 (A) IG # (AUTO) 0.0 10\\^3/uL IG # (AUTO) [facility] ([facility]) Note: Responsible Observer: IG # (AUTO) IG # (AUTO) 100.1260 (A) Hematocrit [Volume Fraction] of Blood by Automated count 36.0 % Normal HEMATOCRIT [facility] ([facility]) Note: Responsible Observer: HCT HEMATOCR IT 100.0400 (A) Hemoglobin [Mass/volume] in Blood 11.6 G/DL Normal HE MOGLOBIN [facility] ([facility]) Note: Responsible Observer: HGB HEMOGLOB IN 100.0300 (A) LYMPH # (AUTO) 1.9 k/uL Normal LYMPH # (AUTO) [facility] ( [facility]) Note: Responsible Observer: LYMPH # (AUT O) LYMPH # (AUTO) 100.1350 (A) IG % (AUTO) 0.3 % IG % (AUTO) [facility] ([facility]) Note: Responsible Observer: IG % (AUTO) IG % (AUTO) 100.1255 (A) LYMPH % (AUTO) 30.9 % Normal LYMPH % (AUTO) [facility] ( [facility]) Note: Responsible Observer: LYMPH % (AUT O) LYMPH % (AUTO) 100.1100 (A) Erythrocyte mean corpuscular hemoglobin [Entitic mass] by Automated count 27.3 PG Normal MCH [facility] ([facility]) Note: Responsible Observer: MCH MCH 100 .0600 (A) Erythrocyte mean corpuscular hemoglobin concentration [Mass/volume] by Automated count 32.2 G/DL Normal MCHC [facility] ([facility]) Note: Responsible Observer: MCHC MCHC 1 00.0650 (A) MONO % (AUTO) 4.8 % Normal MONO % (AUTO) [facility] ([facility]) Note: Responsible Observer: MONO % (AUTO ) MONO% (AUTO) 100.1150 (A) Erythrocyte mean corpuscular volume [Entitic volume] by Auto mated count 84.7 FL Normal MCV MELDRIM ([facility]) Note: Responsible Observer: MCV MCV 100 .0550 (A) MONO # (AUTO) 0.30 k/uL Normal MONO # (AUTO) [facility] ([facility]) Note: Responsible Observer: MONO # (AUTO ) MONO # (AUTO) 100.1400 (A) Erythrocytes [#/volume] in Blood by Automated count 4.25 10\\^6/uL Normal RED BLOOD COUNT MELDRIM ([facility]) Note: Responsible Observer: RBC RED BLOO D COUNT 100.0250 (A) Platelets [#/volume] in Plasma by Automated count 257 10\\^3/uL Normal PLATELET COUNT [facility]EL[facility]IM ([facility]) Note: Responsible Observer: PLT PLATELET COUNT 100.0850 (A) MPV 9.1 FL Normal MPV [facility] ([facility]) Note: Responsible Observer: MPV MPV 100 .0950 (A) Erythrocyte distribution width [Ratio] by Automated count 12.4 % Normal RDW MELDRIM ([facility]) Note: Responsible Observer: RDW RDW 100 .0700 (A) Leukocytes [#/volume] in Blood by Automated count 6.19 10\\^3/uL Normal WHITE BLOOD COUNT MELDRIM ([facility]) Note: Responsible Observer: WBC WHITE BL OOD COUNT 100.0150 (A) ID Date Data Source [id number] 09/18/2020 10:29:00 AM EDT [facility]IM ([facility] Name Value Range Interpretation Code Description Data Elise rce(s) Supporting Document(s) Calcidiol [Mass/volume] in Serum or Plasma 23.0 ng/ml Below low normal Vitamin D,25-HYDROXY MELDRIM ([facility]) Note: Vitamin D Status Rang e Deficiency <20 ng/ml Insufficiency 20-29.9 ng/ml Sufficiency 30-100 ng/ml Toxicity >100 ng/ml Patients should not be tested for 72 hours post fluorescein dye angiography. A false elevation of result may occur.Responsible Observer: Vitamin D Vitamin D,25-Hydroxy 300.5230 (A) ID Date Data Source [id number] 09/18/2020 02:30:00 PM EDT [facility] Name Value Range Interpretation Code Description Data Elise rce(s) Supporting Document(s) Vitamin D,25-HYDROXY 23.0 ng/ml 30-100 L [facility] Vitamin D Status Range De ficiency <20 ng/ml Insufficiency 20-29.9 ng/ml Sufficiency 30-100 ng/ml Toxicity >100 ng/ml Patients should not be tested for 72 hours post fluorescein dye angiography. A false elevation of result may occur. ID Date Data Source [id number] 09/18/2020 01:39:00 PM EDT [facility] Name Value Range Interpretation Code Description Data Elise rce(s) Supporting Document(s) WHITE BLOOD COUNT 6.19 10^3/uL 4.00-10.50 N [facility] RED BLOOD COUNT 4.25 10^6/uL 3.90-5.20 N [facility] th HEMOGLOBIN 11.6 G/DL 11.5-15.6 [facility] HEMATOCRIT 36.0 % 35.0-46.0 N [facility] MCV 84.7 FL 80.0-100.0 [facility] MCH 27.3 PG 27.0-34.0 [facility] MCHC 32.2 G/DL 32-36 [facility] RDW 12.4 % 11.5-14.5 [facility] PLATELET COUNT 257 10^3/uL 130-400 N [facility] MPV 9.1 FL 8.7-13.2 N [facility] GRAN % (AUTO) 58.0 % 42.0-75.0 N [facility] LYMPH % (AUTO) 30.9 % 20.0-51.0 N [facility] MONO % (AUTO) 4.8 % 2.0-15.0 N [facility] EOS % (AUTO) 5.2 % 0.0-11.0 N [facility] BASO % (AUTO) 0.8 % 0.0-2.0 N [facility] IG % (AUTO) 0.3 % 1.00-5.00 [facility] IG # (AUTO) 0.0 10^3/uL <0.5 [facility] GRAN # (AUTO) 3.59 10^3/uL 1.50-6.50 N [facility] LYMPH # (AUTO) 1.9 k/uL 1.0-5.0 N [facility] MONO # (AUTO) 0.30 k/uL 0.20-1.50 N [facility] EOS # (AUTO) 0.32 10^3/uL 0.00-1.10 N [facility] BASO # (AUTO) 0.05 10^3/uL 0.00-0.20 N [facility] ID Date Data Source [id number] 09/18/2020 01:50:00 PM EDT [facility] Name Value Range Interpretation Code Description Data Elise rce(s) Supporting Document(s) SODIUM 140 MEQ/L 135-145 N [facility] POTASSIUM 4.4 MEQ/L 3.5-5.3 [facility] CHLORIDE 107 MEQ/L 94-110 N [facility] CARBON DIOXIDE 27 MEQ/L 22-33 N [facility] ANION GAP 10 5-16 N [facility] BLOOD UREA NITRO 10 MG/DL 7-25 N [facility] CREATININE 0.7 MG/DL 0.6-1.4 N [facility] GFR > 90.0 ML/MIN [facility] Stage G1 - Normal or high [...] years only. BUN/CREAT RATIO 14 8-36 N [facility] GLUCOSE 109 MG/DL 70-100 H [facility] CA 8.4 MG/DL 8.7-10.5 L [facility] BILIRUBIN,TOTAL 0.2 MG/DL 0.1-1.3 N [facility] AST 10 U/L 5-40 N [facility] ALT 12 U/L 5-48 N [facility] ALKALINE PHOSPHATASE 76 U/L 40-140 N [facility] alth TOTAL PROTEIN 6.2 G/DL 5.9-8.3 N [facility] ALBUMIN 4.2 G/DL 3.0-5.1 N [facility] GLOBULIN 2.0 G/DL 1.5-3.5 N [facility] ALB/GLOB RATIO 2.1 G/DL 1.0-3.0 N [facility] ID Date Data Source [id number] 09/18/2020 01:50:00 PM EDT [facility] Name Value Range Interpretation Code Description Data Elise rce(s) Supporting Document(s) TSH 5.116 uIU/ML 0.470-4.200 H [facility] Patients should not be tested for 72 ho urs post fluorescein dye angiography. A false depression of result may occur. Procedure Social History Code Duration Value Status Description Data Source(s ) Smoking 01/09/2021 12:00:00 AM EDT Never smoked tobacco (findi ng) completed Never smoked tobacco (finding) [facility] ([facility]) Smoking 11/10/2020 12:00:00 AM EDT Never Smoker completed Never S moker eCW1 ([facility]) Smoking 11/10/2020 12:00:00 AM EDT Never Smoker completed Never S moker eCW1 ([facility]) Smoking 10/16/2020 12:00:00 AM EDT Never Smoker completed Never S moker eCW1 ([facility]) Smoking 09/21/2020 12:00:00 AM EDT Never smoked tobacco (findi ng) completed Never smoked tobacco (finding) [facility] ([facility]) Smoking 09/21/2020 12:00:00 AM EDT Never smoked tobacco (findi ng) completed Never smoked tobacco (finding) [facility] ([facility]) Smoking 08/21/2020 12:00:00 AM EST Never Smoker completed Never S moker eCW1 ([facility]) Smoking 07/11/2020 12:00:00 AM EST Never smoked tobacco (findi ng) completed Never smoked tobacco (finding) [facility] ([facility]) Smoking 04/27/2020 12:00:00 AM EDT Never Smoker completed Never S moker eCW1 ([facility]) Smoking 04/27/2020 12:00:00 AM EDT Never Smoker completed Never S moker eCW1 ([facility]) Vital Signs ID Date Data Source [id number] Name Value Range Interpretation Code Description Data Source(s) Systolic blood pressure 120 mm[Hg] 120 mm[Hg] M EDENT ([facility]) Diastolic blood pressure 80 mm[Hg] 80 mm[Hg] [facility] Body temperature 98.4 [degF] 98.4 [degF] [facility] ([facility]) Body height 64 [in_i] 64 [in_i] [facility] ([facility]) 5'4" Body weight 225.00 [lb_av] 225.00 [lb_av] MEDEN T ([facility]) Body mass index (BMI) [Ratio] 38.6 kg/m2 38.6 k g/m2 [facility] ([facility]) [place] body weight 120 [lb_av] 120 [lb_av] MEDEN T ([facility]) Body weight 102.060 kg 102.060 kg [facility] ([facility]) Body surface area Derived from formula 2.06 m2 2.06 m2 [facility] ([facility]) Body weight 232 [lb_av] 232 [lb_av] eCW1 ([facility]) Body weight 105.23 kg 105.23 kg [facility] ([facility]) Body height 64 [in_i] 64 [in_i] eCW1 ([facility]) Body mass index (BMI) [Ratio] 39.82 kg/m2 39.82 kg/m2 W1 ([facility]) Systolic blood pressure 122 mm[Hg] 122 mm[Hg] e CW1 ([facility]) Diastolic blood pressure 76 mm[Hg] 76 mm[Hg] eCW1 ([facility]) Body mass index (BMI) [Ratio] 39.65 kg/m2 39.65 kg/m2 W1 ([facility]) Body weight 231 [lb_av] 231 [lb_av] eCW1 ([facility]) Body height 64 [in_i] 64 [in_i] eCW1 ([facility]) Systolic blood pressure 108 mm[Hg] 108 mm[Hg] e CW1 ([facility]) Diastolic blood pressure 64 mm[Hg] 64 mm[Hg] eCW1 ([facility]) Systolic blood pressure 112 mm[Hg] 112 mm[Hg] M EDENT ([facility]) Diastolic blood pressure 78 mm[Hg] 78 mm[Hg] MEDENT ([facility]) Heart rate 88 /min 88 /min MEDENT ([facility]) Respiratory rate 16 /min 16 /min [facility] ( [facility]) Oxygen saturation in Arterial blood by Pulse oximetry 99 % 99 % [facility] ([facility]) Body temperature 99.8 [degF] 99.8 [degF] [facility] Body weight 210.00 [lb_av] 210.00 [lb_av] MEDEN T ([facility]) Body height 64 [in_i] 64 [in_i] MEDENT ([facility]) 5'4" Body mass index (BMI) [Ratio] 36.0 kg/m2 36.0 k g/m2 [facility]) Body temperature 96.2 [degF] 96.2 [degF] [facility]Y [facility] Pt unable to obatin full set of vitals. L[facility]winCA PhenX - pain, abdominal - type and intensity protocol 0 0 EM[facility] ([facility]) Pt unable to obatin full set of vitals. L[facility]winCA Body weight 210 [lb_av] 210 [lb_av] eCW1 ([facility]) Body height 64 [in_i] 64 [in_i] eCW1 ([facility]) Body mass index (BMI) [Ratio] 36.04 kg/m2 36.04 kg/m2 eCW1 ([facility]) Systolic blood pressure 132 mm[Hg] 132 mm[Hg] e CW1 ([facility]) Diastolic blood pressure 76 mm[Hg] 76 mm[Hg] eCW1 ([facility]) Patient Treatment Plan of Care Planned Activity Planned Date Details Description Data Source (s) Hydroxyzine Hydrochloride 50 MG Oral Tablet 01/09/2021 12:00:00 AM EDT [facility] ([facility]) buspirone hydrochloride 5 MG Oral Tablet 01/09/2021 12:00:00 AM EDT [facility] ([facility]) Vitamin D (Ergocalciferol) 1.25 MG (26717 UT) Oral Cap casa 12/08/2020 12:00:00 AM EDT [facility] ([facility]) Trazodone Hydrochloride 50 MG Oral Tablet 11/23/2020 12:00:00 AM ED T [facility] ([facility]) Sertraline 100 MG Oral Tablet 11/23/2020 12:00:00 AM EDT [facility] ([facility]) Levothyroxine Sodium 0.075 MG Oral Tablet 09/21/2020 12:00:00 AM ED T [facility] ([facility]) Vitamin D (Ergocalciferol) 1.25 MG (29022 UT) Oral Cap casa 09/21/2020 12:00:00 AM EDT [facility] ([facility]) Levothyroxine Sodium 0.05 MG Oral Tablet 08/11/2020 12:00:00 AM EST [facility] ([facility]) buspirone hydrochloride 5 MG Oral Tablet 07/11/2020 12:00:00 AM EST [facility] ([facility]) Hydroxyzine Hydrochloride 50 MG Oral Tablet 07/11/2020 12:00:00 AM EST MELDRIM ([facility]) Sertraline 100 MG Oral Tablet [Zoloft] 04/28/2020 12:00:00 AM EDT eCW1 ([facility]) Levothyroxine Sodium 0.025 MG Oral Tablet [Synthroid] 04/28/2020 12:00:00 AM EDT eCW1 ([facility]) Sprintec 28 0.25-35 MG-MCG 04/28/2020 12:00:00 AM EDT eCW1 ([facility]) Levothyroxine Sodium 0.025 MG Oral Tablet [Synthroid] 04/28/2020 12:00:00 AM EDT eCW1 ([facility]) Sertraline 100 MG Oral Tablet [Zoloft] 04/28/2020 12:00:00 AM EDT eCW1 ([facility]) Sprintec 28 0.25-35 MG-MCG 04/28/2020 12:00:00 AM EDT eCW1 ([facility]) Levothyroxine Sodium 0.05 MG Oral Tablet 03/02/2019 12:00:00 AM EDT [facility] ([facility])
--- OUTSIDE RECORDS SUMMARY | 2021-04-17 20:39 | CCD ---
Author Author [facility] Organization [facility] Address Unknown Phone Unavailable Care Team Providers Care Drawing Tracer Name Role Phone Mcknight, Jeni WORKERS' COMPENSATION CLAIMS EXAMINER Unavailable Unavailable Mcknight, Jeni WORKERS' COMPENSATION CLAIMS EXAMINER Unavailable Unavailable Mcknight, Jeni WORKERS' COMPENSATION CLAIMS EXAMINER Unavailable Unavailable Mcknight, Jeni WORKERS' COMPENSATION CLAIMS EXAMINER Unavailable Unavailable Mcknight, Jeni WORKERS' COMPENSATION CLAIMS EXAMINER Unavailable Unavailable Mcknight, Jeni WORKERS' COMPENSATION CLAIMS EXAMINER Unavailable Unavailable Mcknight, Jeni WORKERS' COMPENSATION CLAIMS EXAMINER Unavailable Unavailable Mcknight, Jeni WORKERS' COMPENSATION CLAIMS EXAMINER Unavailable Unavailable Mcknight, Jeni WORKERS' COMPENSATION CLAIMS EXAMINER Unavailable Unavailable Mcknight, Jeni WORKERS' COMPENSATION CLAIMS EXAMINER Unavailable Unavailable Mcknight, Jeni WORKERS' COMPENSATION CLAIMS EXAMINER Unavailable Unavailable Mcknight, Jeni WORKERS' COMPENSATION CLAIMS EXAMINER Unavailable Unavailable Mcknight, Jeni WORKERS' COMPENSATION CLAIMS EXAMINER Unavailable Unavailable Seaview, Keren WORKERS' COMPENSATION CLAIMS EXAMINER Unavailable Unavailable Seaview, Keren WORKERS' COMPENSATION CLAIMS EXAMINER Unavailable Unavailable Efren, Keren WORKERS' COMPENSATION CLAIMS EXAMINER Unavailable Unavailable Efren, Keren WORKERS' COMPENSATION CLAIMS EXAMINER Unavailable Unavailable Efren, Keren WORKERS' COMPENSATION CLAIMS EXAMINER Unavailable Unavailable Seaview, Keren WORKERS' COMPENSATION CLAIMS EXAMINER Unavailable Unavailable Efren, Keren WORKERS' COMPENSATION CLAIMS EXAMINER Unavailable Unavailable Seaview, Keren WORKERS' COMPENSATION CLAIMS EXAMINER Unavailable Unavailable Efren, Keren WORKERS' COMPENSATION CLAIMS EXAMINER Unavailable Unavailable Efren, Keren WORKERS' COMPENSATION CLAIMS EXAMINER Unavailable Unavailable Efren, Keren WORKERS' COMPENSATION CLAIMS EXAMINER Unavailable Unavailable Seaview, Keren WORKERS' COMPENSATION CLAIMS EXAMINER Unavailable Unavailable Seaview, Keren WORKERS' COMPENSATION CLAIMS EXAMINER Unavailable Unavailable Renetta Daugherty DO Unavailable Unavailable [...] Unavailable Unavailable CarguelloRenetta Aaron DO Unavailable Unavailable CarguelloReentta Aaron DO Unavailable Unavailable CarguelloRenetta Aaron DO Unavailable Unavailable CarguelloRenetta Aaron DO Unavailable Unavailable CarguelloRenetta Aaron DO Unavailable Unavailable CarguelloRenetta Aaron DO Unavailable Unavailable CarguelloRenetta Aaron DO Unavailable Unavailable CarguelloRenetta Aaron DO Unavailable Unavailable CarguelloRenetta Araon DO Unavailable Unavailable CarguelloRenettarick DO Unavailable Unavailable [...] Carguello, J Aaron DO Unavailable Unavailable Barton, Llewellyn Cira Unavailable Unavailable Barton, Llewellyn Cira Unavailable Unavailable Barton, Llewellyn Cira Unavailable Unavailable Barton, Llewellyn Cira Unavailable Unavailable Barton, Llewellyn Cira Unavailable Unavailable Barton, Llewellyn Cira Unavailable Unavailable Barton, Llewellyn Cira Unavailable Unavailable Barton, Llewellyn Cira Unavailable Unavailable Barton, Llewellyn Cira Unavailable Unavailable Barton, Llewellyn Cira Unavailable Unavailable Barton, Llewellyn Cira Unavailable Unavailable Barton, Llewellyn Cira Unavailable Unavailable Barton, Llewellyn Cira Unavailable Unavailable Re-disclosure Warning The records [...] is protected by Article 27-F of the [facility] Public Health law. If you continue you may have access to information: Regarding HIV / AIDS; Provided by facilities licensed or operated by the [facility] Office of Mental Health; or Provided by the [facility] Office for People With Developmental Disabilities. If such information is present, then the following [facility] mandated warning applies: This information has been [...] law may result in a fine or skilled nursing sentence or both. A general authorization for the release of medical or other information is NOT sufficient authorization for further disc losure. Allergies and Adverse Reactions Type Description Substance Reaction Status Data Source(s ) Allergy to substance Allergy to substance Allergy to substance YAHAIRA ([facility]) Allergy to substance Allergy to substance Allergy to substance [place] ([facility]) Drug Allergy Drug Allergy NKDA MEDENT ([facility], [facility] Family History Family Member Name Family Member Gender Family Member Status Date o f Status Description Data Source(s) Unknown Unknown Problem MEDENT ([facility]) Unknown Unknown Problem MEDENT ([facility] Unknown Unknown Encounters Encounter Providers Location Date Indications Data Source(s ) Outpatient Attender: Aaron Daugherty DO 03/28/2021 10:28 :00 AM EDT Lab [facility] [place] [address] [address] 02/26/2021 12:00:00 AM EDT eCW1 ([facility]ly [facility]) Outpatient<td ID="encounterTypeDescripti onID0">Primary Care Telehealth FaceTime</td><td>Aaron Daugherty DO</td><td>[facility]</td><td>01/09/2021</td><td>10:50AM</td><td>11:27AM</td><td><content ID="encounterDiagnosisID0-0">Depression</content>, <content ID="encounterDiagnosisID0-1">Generalized Anxiety Disorder</content>, <content ID="encounterDiagnosisID0-2">Hypothyroidism</content>, <content ID="encounterDiagnosisID0-3">Vitamin D Deficiency</content></td> Attender: Aaron Daugherty DO [facility] 01/09/2021 10:50:00 AM EDT - 01/09/2021 11:27:00 AM EDT Vitamin D DeficiencyHypothyroidismGenera lized Anxiety DisorderDepression [facility] ([facility]) Vitamin D Deficiency Hypothyroidism Generalized Anxiety Disorder Depression Unknown<td ID="encounterTypeDescriptionI D0">Chart Update</td><td>Fanny Cm RN</td><td></td><td>11/23/2020</td><td>2:55PM</td><td>11:59PM</td><td></td> Attender: Fanny Cm RN 11/23/2020 02:55:00 PM EDT - 11/23/2020 11:59:00 PM EDT [facility] ([facility]) <td ID="encounterTypeDescriptionID0">[facility] Telehealth FaceTime</td><td>Aaron Daugherty DO</td><td>[facility]</td><td>11/23/2020</td><td>10:50AM</td><td>12:12PM</td><td><content ID="encounterDiagnosisID0-0">Hypothyroidism</content>, <content ID="encounterDiagnosisID0-1">Generalized Anxiety Disorder</content>, <content ID="encounterDiagnosisID0-2">Depression</content>, <content ID="encounterDiagnosisID0-3">Vitamin D Deficiency</content>, <content ID="encounterDiagnosisID0-4">Primary Insomnia</content></td>Outpatient Attender: Aaron Daugherty DO [facility] 11/23/2020 10:50:00 AM EDT - 11/23/2020 12:12:06 PM EDT Primary InsomniaVitamin D DeficiencyGene ralized Anxiety DisorderHypothyroidismDepression [facility] ([facility]) Primary Insomnia Vitamin D Deficiency Generalized Anxiety Disorder Hypothyroidism Depression Outpatient Attender: Aaron Daugherty DO 11/14/2020 10:15 :00 AM EDT [facility] [address], [facility] [address] 11/10/2020 12:00:00 AM EDT eCW1 ([facility]ly [facility]) LEEANN RameyC: [address] [place] [address], Ph. Attender: Cira Barton [facility] 11/07/2020 12:00:00 AM EDT YAHAIRA ([facility]) Outpatient [address] [address] 10/16/2020 12:00:00 AM EDT eCW1 ([facility]ly [facility]) LEEANN RameyC: [address] [place] [address], Ph. Attender: Cira Barton [facility] 10/10/2020 12:00:00 AM EDT YAHAIRA ([facility]) LEEANN RameyC: [address] [place] [address], Ph. Attender: Cira Barton [facility] 10/10/2020 12:00:00 AM EDT YAHAIRA ([facility]) Outpatient Attender: Jeni martinez 09/28/2020 12:00:00 PM EDT MEDENT [facility] Outpatient<td ID="encounterTypeDescripti onID0">Primary Care Telehealth FaceTime</td><td>Aaron Daugherty DO</td><td>[facility]</td><td>09/21/2020</td><td>10:40AM</td><td>11:59PM</td><td><content ID="encounterDiagnosisID0-0">Hypothyroidism</content>, <content ID="encounterDiagnosisID0-1">Depression</content>, <content ID="encounterDiagnosisID0-2">Generalized Anxiety Disorder</content>, <content ID="encounterDiagnosisID0-3">Vitamin D Deficiency</content></td> Attender: Aaron Daugherty DO [facility] 09/21/2020 10:40:00 AM EDT - 09/21/2020 11:59:00 PM EDT Vitamin D DeficiencyGeneralized Anxiety DisorderHypothyroidismDepression [facility] ([facility]) Vitamin D Deficiency Generalized Anxiety Disorder Hypothyroidism Depression Outpatient Attender: Keren Schwartz NPAttender: Aaron sandoval DO 09/18/2020 10:24:00 AM EDT lab [facility] lab [place] [address] [address] 08/31/2020 12:00:00 AM EST eCW1 ([facility] Unknown [address] [address] 07/14/2020 12:00:00 AM EST eCW1 ([facility]) <td ID="encounterTypeDescriptionID3">Tel ephonic Encounter</td><td>Aaron Daugherty DO</td><td>[facility]</td><td>07/11/2020</td><td>06/27/2020 7:00PM</td><td>6:06PM</td><td><content ID="encounterDiagnosisID3- 0">Depression</content>, <content ID="encounterDiagnosisID3-1">Generalized Anxiety Disorder</content>, <content ID="encounterDiagnosisID3-2"> Hypothyroidism</content></td>Outpatient Attender: Aaron Daugherty DO [facility] 06/27/2020 07:00:00 PM EST - 07/11/2020 06:06:23 PM ES T HypothyroidismGeneralized Anxiety DisorderHypothyroidismGeneralized Anxiety DisorderDepressionDepression [facility] ([facility]) Hypothyroidism Generalized Anxiety Disorder Hypothyroidism Generalized Anxiety Disorder Depression Depression Unknown<td ID="encounterTypeDescriptionI D4">Chart Prep</td><td>Aaron Daugherty DO</td><td></td><td>07/04/2020</td><td>06/27/2020 4:40PM</td><td>06/27/2020 11:59PM</td><td></td> Attender: Aaron Daugherty DO 06/27/2020 04:40:00 PM EST - 06/27/2020 11:59:00 PM EST [facility] ([facility]) Outpatient<td ID="encounterTypeDescripti onID0">Telephonic Encounter</td><td>Aaron Daugherty DO</td><td>[facility]</td><td>08/24/2020</td><td>06/27/2020 3:50PM</td><td>4:29PM</td><td> <content ID="encounterDiagnosisID0-0">Fatigue</content>, <content ID="encounterDiagnosisID0-1">Hypothyroidism</content>, <content ID="encounterDiagnosisID0-2">Generalized Anxiety Disorder</content>, <content ID="encounterDiagnosisID0-3">Depression</content></td> Attender: Aaron Daugherty DO [facility] 06/27/2020 03:50:00 PM EST - 08/24/2020 04:29:00 PM EST FatigueGeneralized Anxiety DisorderHypothyroidismDepre ssion [facility] ([facility]) Fatigue Generalized Anxiety Disorder Hypothyroidism Depression Unknown<td ID="encounterTypeDescriptionI D2">Chart Update</td><td>Fanny Cm RN</td><td></td><td>07/20/2020</td><td>06/27/2020 3:44PM</td><td>07/11/2020 11:59PM</td><td></td> Attender: Fanny Cm RN 06/27/2020 03:44:00 PM EST - 07/11/2020 11:59:00 PM EST [facility] ([facility]) <td ID="encounterTypeDescriptionID1">Carito rt Update</td><td>Keren Schwartz NP</td><td></td><td>08/11/2020</td><td>06/27/2020 9:15AM</td><td>07/11/2020 11:59PM</td><td><content ID="encounterDiagnosisID1-0">Hypothyroidism</content></td>Unknown Attender: Keren Schwartz NP 06/27/2020 09:15:00 AM EST - 07/11/2020 11:59:00 PM EST HypothyroidismHypothyroidism [facility] ([facility]) Hypothyroidism Hypothyroidism <td ID="encounterTypeDescriptionID5">D D ental Office Visit - 30</td><td>Kylie Adkins DDS</td><td>[facility]</td><td>06/27/2020</td><td>7:49AM</td><td>8:26AM</td><td></td>Unknown Attender: Kylie Adkins DDS [facility] 06/27/2020 07:49:00 AM EST - 06/27/2020 08:26:00 AM EST [facility] ([facility] Out[place] [address] [address] 04/28/2020 12:00:00 AM EDT [facility] ([facility]) Immunizations Vaccine Date Status Description Data Source(s) COVID-19, mRNA, LNP-S, PF, 100 mcg/0.5 mL dose 11/07/2020 05 :16:54 PM EDT completed .5 mL [facility]) Moderna COVID-19 11/07/2020 02:56:00 PM EDT completed <td ID="Vxdsfdjfmjbro-Pwoyazintvs-NC2">Moderna COVID-19</td><td ID="ImmunizationDose-1">2</td><td>11/07/2020</td><td ID="Boamusjhqowqg-ZrxqeFtgm-PO5"></td><td></td><td ID="Uqcbrcgsyqzno-Odftzy-TG7">Complete (Reported)</td><td>Patient</td><td ID="Mlwkmdvsbdhmu-Rdkyw-Rsnb-Comment-ID1"></td> [facility] ([facility]) COVID-19 VACCINE Moderna 11/07/2020 12:00:00 AM EDT completed [facility] Vaccine Series Complete: YESThis Data wa s Submitted to [facility] Via [employer]. COVID-19, mRNA, LNP-S, PF, 100 mcg/0.5 mL dose 10/10/2020 05 :22:23 PM EDT completed .5 mL [place] ([facility]) COVID-19, mRNA, LNP-S, PF, 100 mcg/0.5 mL dose 10/10/2020 05 :22:23 PM EDT completed .5 mL [place] ([facility]) Moderna COVID-19 10/10/2020 02:56:00 PM EDT completed <td ID="Vtrglvvhmystg-Qbclampgact-DK4">Moderna COVID-19</td><td ID="ImmunizationDose-0">1</td><td>10/10/2020</td><td ID="Yxhiqewaqutih-QeraqYwab-CD4"></td><td></td><td ID="Kdhlqlesrqrsy-Cozfie-WL3">Complete (Reported)</td><td>Patient</td><td ID="Cxrervaoblcoj-Cqwke-Whzc-Comment-ID0"></td> [facility] ([facility]) COVID-19 VACCINE Moderna 10/10/2020 12:00:00 AM EDT completed [facility] Vaccine Series Complete: NOThis Data was Submitted to [facility] Via iPosition. Medications Medication Brand Name Start Date Product [...] [facility] Vitamin D (Ergocalciferol) 1.25 MG (58699 UT) Oral Cap casa Vitamin D (Ergocalciferol) 1.25 MG (19385 UT) Oral Capsule 12/08/2020 12:00:00 AM EDT [...] [facility] Vitamin D (Ergocalciferol) 1.25 MG (97563 UT) Oral Cap casa Vitamin D (Ergocalciferol) 1.25 MG (38606 UT) Oral Capsule 09/21/2020 12:00:00 AM EDT [...] sodium 0.05 MG Ora l Tablet EM[facility] ([facility]) buspirone hydrochloride 5 MG Oral Tablet BUSPIRONE [...] AM EDT 1.0 {tablet} active eCW1 ([facility]) Sprintec 28 0.25-35 MG-MCG Sprintec 28 0.25-35 MG-MCG 2019 12:00:00 AM EDT 1.0 {tablet} active Sprintec 28 0.25-35 MG-MCG eCW1 ([facility]) Sprintec 28 0.25-35 MG-MCG Sprintec 28 0.25-35 MG-MCG 2019 12:00:00 AM EDT 1.0 {tablet} active Sprintec 28 0.25-35 MG-MCG eCW1 ([facility]) Levothyroxine Sodium 0.025 MG Oral Tablet [Synthroid] Synthroid 25 MCG Synthroid 25 MCG 04/28/2020 12:00:00 AM EDT active Synthroid 25 MCG eCW1 ([facility]) Sertraline 100 MG Oral Tablet [Zoloft] Zoloft 100 MG Zoloft 100 MG 04/28/2020 12:00:00 AM EDT 1.0 {tablet} active Zo loft 100 MG eCW1 ([facility]) Sprintec 28 0.25-35 MG-MCG Sprintec 28 0.25-35 MG-MCG 2019 12:00:00 AM EDT 1.0 {tablet} suspended e CW1 ([facility]) Sprintec 28 0.25-35 MG-MCG Sprintec 28 0.25-35 MG-MCG 2019 12:00:00 AM EDT 1.0 {tablet} active Sprintec 28 0.25-35 MG-MCG eCW1 ([facility]) Sertraline 100 MG Oral Tablet [Zoloft] Zoloft 100 MG Zoloft 100 MG 04/28/2020 12:00:00 AM EDT 1.0 {tablet} active Zo loft 100 MG eCW1 ([facility]) Levothyroxine Sodium 0.025 MG Oral Tablet [Synthroid] Synthroid 25 MCG Synthroid 25 MCG 04/28/2020 12:00:00 AM EDT active eCW1 ([facility]) Sprintec 28 0.25-35 MG-MCG Sprintec 28 0.25-35 MG-MCG 2019 12:00:00 AM EDT 1.0 {tablet} active Sprintec 28 0.25-35 MG-MCG eCW1 ([facility]) Levothyroxine Sodium 0.025 MG Oral Tablet [Synthroid] Synthroid 25 MCG Synthroid 25 MCG 04/28/2020 12:00:00 AM EDT active Synthroid 25 MCG eCW1 ([facility]) Sertraline 100 MG Oral Tablet [Zoloft] Zoloft 100 MG Zoloft 100 MG 04/28/2020 12:00:00 AM EDT 1.0 {tablet} active Zo loft 100 MG eCW1 ([facility]) Levothyroxine Sodium 0.025 MG Oral Tablet [Synthroid] Synthroid 25 MCG Synthroid 25 MCG 04/28/2020 12:00:00 AM EDT active Synthroid 25 MCG eCW1 ([facility]) Sprintec 28 0.25-35 MG-MCG Sprintec 28 0.25-35 MG-MCG 2019 12:00:00 AM EDT 1.0 {tablet} suspended Sprintec 28 0.25-35 MG-MCG eCW1 ([facility]) Sertraline 100 MG Oral Tablet [Zoloft] Zoloft 100 MG Zoloft 100 MG 04/28/2020 12:00:00 AM EDT 1.0 {tablet} active Zo loft 100 MG eCW1 ([facility]) Levothyroxine Sodium 0.025 MG Oral Tablet [Synthroid] Synthroid 25 MCG Synthroid 25 MCG 04/28/2020 12:00:00 AM EDT active Synthroid 25 MCG eCW1 ([facility]) Levothyroxine Sodium 0.025 MG Oral Tablet [Synthroid] Synthroid 25 MCG Synthroid 25 MCG 04/28/2020 12:00:00 AM EDT active Synthroid 25 MCG eCW1 ([facility]) Sertraline 100 MG Oral Tablet [Zoloft] Zoloft 100 MG Zoloft 100 MG 04/28/2020 12:00:00 AM EDT 1.0 {tablet} active Zo loft 100 MG eCW1 ([facility]) 50 mcg 03/25/2020 12:00:00 AM EDT tablet [...] sodium 0.05 MG Ora l Tablet [facility] ([facility]) [facility] 27-0.8MG Oral Tablet [facility] 27-0.8MG Oral Tablet 01/11/2019 12:00:00 AM EDT 1 aborted [facility] Pre serene [facility] ([facility]) Insurance Providers Payer name Policy type / Coverage type Policy ID Covered alliance party ID Covered alliance party's relationship to jiang Policy Jiang Plan Information BCBS of [facility] Other 0 [id number] [facility] 0 BCBS of [facility] Other 0 [id number] [facility] 0 BLUE CROSS [id number] SPO [id number] SELF PAY Financial Assistance 50% SP [facility] [facility] [place] [facility] [place] Other 0 [id number] Self 0 [place] [facility] [place] [facility] [place] Other 0 [id number] Self 0 [place] [place] Other 0 [id number] Self 0 [place] [place] Other 0 [id number] Self 0 BLUE CROSS [id number] SPO [id number] Financial Assistance 50% SP SELF PAY SELF PAY BLUE CROSS [id number] SPO [id number] [facility] COMMUNITY PLAN [id number] SP [id number] [facility] [id number] SP [id number] SELF PAY [facility] COMMUNITY PLAN [id number] SP [id number] SELF PAY [facility] PLAN [id number] SP [id number] BCBS OF [place] 306/806 [id number] [facility] Medigap Part B [id number] Family Dependent [id number] [facility] Maintenance [facility] ([facility] [id number] Self [id number] [facility] Maintenance [facility] ([facility] [id number] Family Dependent [id number] Financial Assistance Self Pay SP [facility] Maintenance Organization ([facility] [id number] Family Dependent [id number] [facility] ([facility] [id number] Family Dependent [id number] [facility] [id number] S [id number] [id number] [facility] Maintenance Organization (HMO) [id number] Family Dependent Medicaid [place] Medigap Part B [id number] Self [employer] Commercial [id number] Family Dependent [place] Medig[place] Part B [id number] Self BC/BS Of [place] Commercial [id number] Family Depende nt MEDICAID M [id number] S [id number] [employer] BCBS B [id number] C GLX [id number] BCBS OF [place] 332/834 [id number] BCBS OF [place] 306/806 [id number] [id number] SELF PAY UNAVAILABLE UNAVAILA BLE MEDICAID - CLINIC [id number] UNHC COMMUNITY PLAN [facility] [id number] SP [id number] BLUE CROSS [facility] [id number] UN COMMUNITY PLAN [facility] [id number] SP [id number] [facility] MEDICAID [id number] SP [id number] E UnitedHealthcare Other 0 [id number] Self 0 UnitedHealthcare Other 0 [id number] Self 0 UnitedHealthcare Other 0 [id number] Self 0 UnitedHealthcare Other 0 [id number] Self 0 UnitedHealthcare Other 0 [id number] Self 0 UnitedHealthcare Other 0 [id number] Self 0 UNITED HEALTHCARE(MCAID) O [id number] S [id number] MEDICAID [id number] SP [id number] BCBS OF [place] 306/806 [id number] SP [id number] BCBS [place] PPO 302/307 [id number] SP [id number] BCBS [place] PPO 302/307 [id number] SP [id number] [employer] BCBS Medigap Part B [id number] Family Dependent [id number] [employer] BCBS Health Maintenance Organization (HMO) [id number] [facility] [id number] BCBS OF [place] 306/806 [id number] BCBS OF [place] 306/806 [id number] SP [id number] BCBS OF [place] 306/806 [id number] SP [id number] Problems, Conditions, and Diagnoses Code Display Name Description Problem Type Effective Dates Data Source(s) E03.9 Hypothyroidism, unspecified E03.9 - Hypothyroidism, un specified Diagnosis 09/18/2020 10:24:00 AM EDT [place] [employer] F41.1 Generalized anxiety disorder F41.1 - Generalized anxiety disorder Diagnosis 09/18/2020 10:24:00 AM EDT [facility] 268.9 Vitamin D Deficiency Vitamin D Deficiency Problem 09/21/2020 12:53:00 PM EDT [place] [place] ([facility]) 268.9 Vitamin D Deficiency Vitamin D Deficiency Problem 09/21/2020 12:53:00 PM EDT [place] [place] ([facility] 268.9 Vitamin D Deficiency Vitamin D Deficiency Problem 09/21/2020 12:53:00 PM EDT [place] ([facility] 268.9 Vitamin D Deficiency Vitamin D Deficiency Problem 09/21/2020 12:53:00 PM EDT [place] ([facility]) E03.9 [id number] Hypothyroid Problem 04/28/2020 12:00:00 AM E DT eCW1 ([facility]) Surgeries/Procedures Procedure Description Date Indications Data Source(s) Summary provided electronically in CCDA format & reasonable certainty of receipt 01/09/2021 12:00:00 AM EDT - 01/09/2021 12:00:00 AM EDT [facility] ([facility] Clinical summary provided to patient 12:00:00 AM EDT - 01/09/2021 12:00:00 AM EDT [facility] ([facility]) Clinical summary provided to patient 12:00:00 AM EDT - 01/09/2021 12:00:00 AM EDT [place] ([facility]) medical regimen review 01/09/2021 12:00: 00 AM [...] EDT - 09/21/2020 12:00:00 AM EDT [facility] ([facility]) Clinical summary provided to patient 12:00:00 AM EDT - 09/21/2020 12:00:00 AM EDT [facility] ([facility]) medical regimen review 09/21/2020 12:00: 00 AM EDT - 09/21/2020 12:00:00 AM EDT [facility] ([facility]) Transition in care medication list update 09/21/2020 12:00:00 AM EDT - 09/21/2020 12:00:00 AM EDT [facility] ([facility]) continue current medication except where otherwise noted 09/21/2020 12:00:00 AM EDT - 09/21/2020 12:00:00 AM EDT [facility] ([facility]) Oral Cancer Screening Oral Cancer Screening 06/27/2020 12:00:00 AM EST [facility] ([facility]) Periodic Oral Evaluation Periodic Oral Evaluation 06/27/2020 12:00: 00 AM EST [facility] ([facility]) Bitewing - 4 radiographic images Bitewing - 4 radiographic i mages 06/27/2020 12:00:00 AM EST [facility] ([facility]) Periodic Oral Evaluation, [facility] Periodic Oral Evaluati on, [facility] 06/27/2020 12:00:00 AM EST [facility] ([facility]) Results ID Date Data Source [id number] 03/28/2021 01:57:00 PM [facility] Name Value Range Interpretation Code Description Data Elise rce(s) Supporting Document(s) TSH 2.517 uIU/ML 0.470-4.200 N [facility] Patients should not be tested for 72 ho urs post fluorescein dye angiography. A false depression of result may occur. ID Date Data Source [id number] 11/14/2020 11:43:00 AM EDT [facility]) Name Value Range Interpretation Code Description Data Elise rce(s) Supporting Document(s) Thyrotropin [Units/volume] in Serum or Plasma by Detec tion limit <= 0.05 mIU/L 0.537 uIU/ML Normal TSH [place] ([facility]) Note: Patients should not be tested for 72 hours post fluorescein dye angiography. A false depression of result may occur.Responsible Observer: TSH TSH 300.5500 (A) ID Date Data Source [id number] 11/14/2020 05:20:00 PM EDT [facility] Name Value Range Interpretation Code Description Data Elise rce(s) Supporting Document(s) TSH 0.537 uIU/ML 0.470-4.200 N [facility] Patients should not be tested for 72 ho urs post fluorescein dye angiography. A false depression of result may occur. ID Date Data Source [id number] 10/22/2020 08:25:00 AM EDT [facility] Name Value Range Interpretation Code Description Data Elise rce(s) Supporting Document(s) SARS-CoV-2 (COVID-19) RNA [Presence] in Respiratory specimen by ANN with probe detection Not Detected [facility] This lab was ordered by [facility] and reported by [employer]. ID Date Data Source [id number] 09/28/2020 12:00:00 AM EDT [facility] Name Value Range Interpretation Code Description Data Elise rce(s) Supporting Document(s) SARS-CoV2 Rapid Antigen Negative [facility] This lab was reported by [facility]. ID Date Data Source [id number] 09/18/2020 10:29:00 AM EDT [employer] [facility] Name Value Range Interpretation Code Description Data Elise rce(s) Supporting Document(s) Thyrotropin [Units/volume] in Serum or Plasma by Detec tion limit <= 0.05 mIU/L 5.116 uIU/ML Above high normal TSH [place] ([facility]) Note: Patients should not be tested for 72 hours post fluorescein dye angiography. A false depression of result may occur.Responsible Observer: TSH TSH 300.5500 (A) ID Date Data Source [id number] 09/18/2020 10:29:00 AM EDT [employer] [facility] Name Value Range Interpretation Code Description Data Elise rce(s) Supporting Document(s) Alanine aminotransferase [Enzymatic activity/volume] in Seru m or Plasma 12 U/L Normal ALT [place] ([facility]) Note: Responsible Observer: ALT/SGPT ALT 300.3100 (A) Alkaline phosphatase isoenzyme [Units/volume] in Serum or Plasma 76 U/L Normal ALKALINE PHOSPHATASE [facility] ([facility]) Note: Responsible Observer: ALK PHOS ALK JOSE MARIA PHOSPHATASE 300.3110 (A) Albumin [Mass/volume] in Synovial fluid 4.2 G/DL Normal ALBUMIN [facility] ([facility]) Note: Responsible Observer: ALB ALBUMIN 300.3900 (A) Albumin/Globulin [Mass Ratio] in Amniotic fluid 2.1 G/DL Normal ALB/GLOB RATIO [facility] ([facility]) Note: Responsible Observer: A/G RATIO AL B/GLOB RATIO 300.4100 (A) Aspartate aminotransferase [Enzymatic activity/volume] in Serum or Plasma 10 U/L Normal AST [facility] ([facility]) Note: Responsible Observer: AST/SGOT AST 300.3050 (A) Bilirubin.total [Mass/volume] in Serum or Plasma 0.2 MG/DL Normal BILIRUBIN,TOTAL [facility] ([facility]) Note: Responsible Observer: TOTAL BILI T OTAL BILIRUBIN 300.2700 (A) Urea nitrogen/Creatinine [Mass Ratio] in Serum or Plasma 14 Normal BUN/CREAT RATIO [facility] ([facility]) Note: Responsible Observer: BUN/CREAT RA TOR BUN/CREAT RATIO 300.0450 (A) BLOOD UREA NITRO 10 MG/DL Normal BLOOD UREA NITRO [facility] ([facility]) Note: Responsible Observer: BUN BLOOD UR EA NITROGEN 300.0350 (A) CA 8.4 MG/DL Below low normal CA [facility] ([facility]) Note: Responsible Observer: CA CALCIUM 300.2200 (A) Chloride [Moles/volume] in Serum, Plasma or Blood 107 MEQ/L Normal CHLORIDE [facility] ([facility]) Note: Responsible Observer: CL CHLORIDE 300.0200 (A) Carbon dioxide, total [Moles/volume] in Serum or Plasma 27 MEQ/L Normal CARBON DIOXIDE [facility] ([facility]) Note: Responsible Observer: CO2 CARBON D IOXIDE 300.0250 (A) Creatine/Creatinine [Mass Ratio] in Urine 0.7 MG/DL Brenda l CREATININE [facility] ([facility]) Note: Responsible Observer: CREAT CREATI NINE 300.0400 (A) Globulin [Mass/volume] in Serum by calculation 2.0 G/DL Normal GLOBULIN [facility] ([facility]) Note: Responsible Observer: GLOB GLOBULI N 300.4050 (A) Anion gap in Blood 10 Normal ANION GAP [facility] ([facility]) Note: Responsible Observer: ANION GAP AN ION GAP 300.0300 (A) GFR > 90.0 ML/MIN GFR [facility] ([facility]) Note: Stage G1 - Normal or [...] or Blood 140 MEQ/L Normal SODIUM [facility] ([facility]) Note: Responsible Observer: NA SODIUM 3 00.0100 (A) Glucose [Presence] in Urine 109 MG/DL Above high normal G LUCOSE [facility] ([facility]) Note: Responsible Observer: GLU GLUCOSE 300.0500 (A) Protein [Mass/volume] in Synovial fluid 6.2 G/DL Normal TOTAL PROTEIN [facility] ([facility]) Note: Responsible Observer: TP TOTAL PRO TEIN 300.3750 (A) Potassium [Mass/volume] in Blood 4.4 MEQ/L Normal POT ASSIUM [facility] ([facility]) Note: Responsible Observer: K POTASSIUM 300.0150 (A) ID Date Data Source [id number] 09/18/2020 10:29:00 AM EDT [facility] ([facility]) Name Value Range Interpretation Code Description Data Elise rce(s) Supporting Document(s) BASO # (AUTO) 0.05 10\\^3/uL Normal BASO # (AUTO) [facility] ([facility]) Note: Responsible Observer: BASO # (AUTO ) BASO # (AUTO) 100.1500 (A) BASO % (AUTO) 0.8 % Normal BASO % (AUTO) [facility] ([facility]) Note: Responsible Observer: BASO % (AUTO ) BASO % (AUTO) 100.1250 (A) EOS # (AUTO) 0.32 10\\^3/uL Normal EOS # (AUTO) [facility] ( [facility]) Note: Responsible Observer: EOS # (AUTO) EOS # (AUTO) 100.1450 (A) GRAN % (AUTO) 58.0 % Normal GRAN % (AUTO) [facility] ([facility]) Note: Responsible Observer: GRAN % (AUTO ) GRAN % (AUTO) 100.1000 (A) GRAN # (AUTO) 3.59 10\\^3/uL Normal GRAN # (AUTO) [facility] ([facility]) Note: Responsible Observer: GRAN # (AUTO ) GRAN #(AUTO) 100.1325 (A) EOS % (AUTO) 5.2 % Normal EOS % (AUTO) [facility] ([facility]) Note: Responsible Observer: EOS % (AUTO) EOS % (AUTO) 100.1200 (A) IG # (AUTO) 0.0 10\\^3/uL IG # (AUTO) [facility] ([facility]) Note: Responsible Observer: IG # (AUTO) IG # (AUTO) 100.1260 (A) Hematocrit [Volume Fraction] of Blood by Automated count 36.0 % Normal HEMATOCRIT [facility] ([facility]) Note: Responsible Observer: HCT HEMATOCR IT 100.0400 (A) Hemoglobin [Mass/volume] in Blood 11.6 G/DL Normal HE MOGLOBIN [facility] ([facility]) Note: Responsible Observer: HGB HEMOGLOB IN 100.0300 (A) LYMPH # (AUTO) 1.9 k/uL Normal LYMPH # (AUTO) [facility] ( [facility]) Note: Responsible Observer: LYMPH # (AUT O) LYMPH # (AUTO) 100.1350 (A) IG % (AUTO) 0.3 % IG % (AUTO) [facility] ([facility]) Note: Responsible Observer: IG % (AUTO) IG % (AUTO) 100.1255 (A) LYMPH % (AUTO) 30.9 % Normal LYMPH % (AUTO) [facility] ( [facility]) Note: Responsible Observer: LYMPH % (AUT O) LYMPH % (AUTO) 100.1100 (A) Erythrocyte mean corpuscular hemoglobin [Entitic mass] by Automated count 27.3 PG Normal MCH [facility] ([facility]) Note: Responsible Observer: MCH MCH 100 .0600 (A) Erythrocyte mean corpuscular hemoglobin concentration [Mass/volume] by Automated count 32.2 G/DL Normal MCHC [facility] ([facility]) Note: Responsible Observer: MCHC MCHC 1 00.0650 (A) MONO % (AUTO) 4.8 % Normal MONO % (AUTO) [facility] ([facility]) Note: Responsible Observer: MONO % (AUTO ) MONO% (AUTO) 100.1150 (A) Erythrocyte mean corpuscular volume [Entitic volume] by Auto mated count 84.7 FL Normal MCV [place] ([facility]) Note: Responsible Observer: MCV MCV 100 .0550 (A) MONO # (AUTO) 0.30 k/uL Normal MONO # (AUTO) [facility] ([facility]) Note: Responsible Observer: MONO # (AUTO ) MONO # (AUTO) 100.1400 (A) Erythrocytes [#/volume] in Blood by Automated count 4.25 10\\^6/uL Normal RED BLOOD COUNT [place] [facility] ([facility]) Note: Responsible Observer: RBC RED BLOO D COUNT 100.0250 (A) Platelets [#/volume] in Plasma by Automated count 257 10\\^3/uL Normal PLATELET COUNT [facility] ([facility]) Note: Responsible Observer: PLT PLATELET COUNT 100.0850 (A) MPV 9.1 FL Normal MPV [facility] ([facility]) Note: Responsible Observer: MPV MPV 100 .0950 (A) Erythrocyte distribution width [Ratio] by Automated count 12.4 % Normal RDW [place] ([facility]) Note: Responsible Observer: RDW RDW 100 .0700 (A) Leukocytes [#/volume] in Blood by Automated count 6.19 10\\^3/uL Normal WHITE BLOOD COUNT [place] [facility] ([facility]) Note: Responsible Observer: WBC WHITE BL OOD COUNT 100.0150 (A) ID Date Data Source [id number] 09/18/2020 10:29:00 AM EDT [place] [facility] Name Value Range Interpretation Code Description Data Elise rce(s) Supporting Document(s) Calcidiol [Mass/volume] in Serum or Plasma 23.0 ng/ml Below low normal Vitamin D,25-HYDROXY [place] ([facility]) Note: Vitamin D Status Rang e Deficiency <20 ng/ml Insufficiency 20-29.9 ng/ml Sufficiency 30-100 ng/ml Toxicity >100 ng/ml Patients should not be tested for 72 hours post fluorescein dye angiography. A false elevation of result may occur.Responsible Observer: Vitamin D Vitamin D,25-Hydroxy 300.5230 (A) ID Date Data Source [id number] 09/18/2020 02:30:00 PM EDT [facility] Name Value Range Interpretation Code Description Data Elise rce(s) Supporting Document(s) Vitamin D,25-HYDROXY 23.0 ng/ml 30-100 L [facility] Vitamin D Status Range De ficiency <20 ng/ml Insufficiency 20-29.9 ng/ml Sufficiency 30-100 ng/ml Toxicity >100 ng/ml Patients should not be tested for 72 hours post fluorescein dye angiography. A false elevation of result may occur. ID Date Data Source [id number] 09/18/2020 01:39:00 PM EDT [facility] Name Value Range Interpretation Code Description Data Elise rce(s) Supporting Document(s) WHITE BLOOD COUNT 6.19 10^3/uL 4.00-10.50 N [facility] RED BLOOD COUNT 4.25 10^6/uL 3.90-5.20 N [facility] th HEMOGLOBIN 11.6 G/DL 11.5-15.6 [facility] HEMATOCRIT 36.0 % 35.0-46.0 N [facility] MCV 84.7 FL 80.0-100.0 [facility] MCH 27.3 PG 27.0-34.0 [facility] MCHC 32.2 G/DL 32-36 [facility] RDW 12.4 % 11.5-14.5 [facility] PLATELET COUNT 257 10^3/uL 130-400 N [facility] MPV 9.1 FL 8.7-13.2 N [facility] GRAN % (AUTO) 58.0 % 42.0-75.0 N [facility] LYMPH % (AUTO) 30.9 % 20.0-51.0 N [facility] MONO % (AUTO) 4.8 % 2.0-15.0 N [facility] EOS % (AUTO) 5.2 % 0.0-11.0 N [facility] BASO % (AUTO) 0.8 % 0.0-2.0 N [facility] IG % (AUTO) 0.3 % 1.00-5.00 [facility] IG # (AUTO) 0.0 10^3/uL <0.5 [facility] GRAN # (AUTO) 3.59 10^3/uL 1.50-6.50 N [facility] LYMPH # (AUTO) 1.9 k/uL 1.0-5.0 N [facility] MONO # (AUTO) 0.30 k/uL 0.20-1.50 N [facility] EOS # (AUTO) 0.32 10^3/uL 0.00-1.10 N [facility] BASO # (AUTO) 0.05 10^3/uL 0.00-0.20 N [facility] ID Date Data Source [id number] 09/18/2020 01:50:00 PM EDT [facility] Name Value Range Interpretation Code Description Data Elise rce(s) Supporting Document(s) SODIUM 140 MEQ/L 135-145 N [facility] POTASSIUM 4.4 MEQ/L 3.5-5.3 [facility] CHLORIDE 107 MEQ/L 94-110 N [facility] CARBON DIOXIDE 27 MEQ/L 22-33 N [facility] ANION GAP 10 5-16 N [facility] BLOOD UREA NITRO 10 MG/DL 7-25 N [facility] CREATININE 0.7 MG/DL 0.6-1.4 N [facility] GFR > 90.0 ML/MIN [facility] Stage G1 - Normal or high kidney functi on The GFR is an estimate of the Glomerular Filtration Rate. It is an aid to assess a patient's renal function. It is not a conclusive diagnosis of kidney disease. GFR normal is >=90 The MDRD GFR calculation is considered valid between the ages of 18 and 75 years only. BUN/CREAT RATIO 14 8-36 N [facility] GLUCOSE 109 MG/DL 70-100 H [facility] CA 8.4 MG/DL 8.7-10.5 L [facility] BILIRUBIN,TOTAL 0.2 MG/DL 0.1-1.3 N [facility] AST 10 U/L 5-40 N [facility] ALT 12 U/L 5-48 N [facility] ALKALINE PHOSPHATASE 76 U/L 40-140 N [facility] alth TOTAL PROTEIN 6.2 G/DL 5.9-8.3 N [facility] ALBUMIN 4.2 G/DL 3.0-5.1 N [facility] GLOBULIN 2.0 G/DL 1.5-3.5 N [facility] ALB/GLOB RATIO 2.1 G/DL 1.0-3.0 N [facility] ID Date Data Source [id number] 09/18/2020 01:50:00 PM EDT [facility] Name Value Range Interpretation Code Description Data Elise rce(s) Supporting Document(s) TSH 5.116 uIU/ML 0.470-4.200 H [facility] Patients should not be tested for 72 ho urs post fluorescein dye angiography. A false depression of result may occur. Procedure Social History Code Duration Value Status Description Data Source(s ) Smoking 01/09/2021 12:00:00 AM EDT Never smoked tobacco (findi ng) completed Never smoked tobacco (finding) [facility] ([facility]) Smoking 11/10/2020 12:00:00 AM EDT Never Smoker completed Never S moker eCW1 ([facility]) Smoking 11/10/2020 12:00:00 AM EDT Never Smoker completed Never S moker eCW1 ([facility]) Smoking 10/16/2020 12:00:00 AM EDT Never Smoker completed Never S moker eCW1 ([facility]) Smoking 09/21/2020 12:00:00 AM EDT Never smoked tobacco (findi ng) completed Never smoked tobacco (finding) [facility] ([facility]) Smoking 09/21/2020 12:00:00 AM EDT Never smoked tobacco (findi ng) completed Never smoked tobacco (finding) [facility] ([facility]) Smoking 08/21/2020 12:00:00 AM EST Never Smoker completed Never S moker eCW1 ([facility]) Smoking 07/11/2020 12:00:00 AM EST Never smoked tobacco (findi ng) completed Never smoked tobacco (finding) [facility] ([facility]) Smoking 04/27/2020 12:00:00 AM EDT Never Smoker completed Never S moker eCW1 ([facility]) Smoking 04/27/2020 12:00:00 AM EDT Never Smoker completed Never S moker eCW1 ([facility]) Vital Signs ID Date Data Source [id number] Name Value Range Interpretation Code Description Data Source(s) Systolic blood pressure 120 mm[Hg] 120 mm[Hg] M EDENT ([facility]) Diastolic blood pressure 80 mm[Hg] 80 mm[Hg] [facility] ([facility]) Body temperature 98.4 [degF] 98.4 [degF] [facility] ([facility]) Body height 64 [in_i] 64 [in_i] [facility] ([facility]) 5'4" Body weight 225.00 [lb_av] 225.00 [lb_av] [facility] T ([facility]) Body mass index (BMI) [Ratio] 38.6 kg/m2 38.6 k g/m2 [facility] ([facility]) [place] body weight 120 [lb_av] 120 [lb_av] [facility] T ([facility]) Body weight 102.060 kg 102.060 kg [facility] ([facility]) Body surface area Derived from formula 2.06 m2 2.06 m2 [facility] ([facility]) Body weight 232 [lb_av] 232 [lb_av] eCW1 ([facility]) Body weight 105.23 kg 105.23 kg W1 ([facility]) Body height 64 [in_i] 64 [in_i] eCW1 ([facility]) Body mass index (BMI) [Ratio] 39.82 kg/m2 39.82 kg/m2 W1 ([facility]) Systolic blood pressure 122 mm[Hg] 122 mm[Hg] e CW1 ([facility]) Diastolic blood pressure 76 mm[Hg] 76 mm[Hg] eCW1 ([facility]) Body weight 231 [lb_av] 231 [lb_av] eCW1 ([facility]) Body mass index (BMI) [Ratio] 39.65 kg/m2 39.65 kg/m2 eCW1 ([facility]) Body height 64 [in_i] 64 [in_i] eCW1 ([facility]) Systolic blood pressure 108 mm[Hg] 108 mm[Hg] e CW1 ([facility]) Diastolic blood pressure 64 mm[Hg] 64 mm[Hg] eCW1 ([facility]) Systolic blood pressure 112 mm[Hg] 112 mm[Hg] M EDENT ([facility]) Diastolic blood pressure 78 mm[Hg] 78 mm[Hg] [facility] ([facility]) Heart rate 88 /min 88 /min [facility] ([facility], [facility]) Respiratory rate 16 /min 16 /min [facility] ( [facility]) Oxygen saturation in Arterial blood by Pulse oximetry 99 % 99 % [facility] ([facility]) Body temperature 99.8 [degF] 99.8 [degF] [facility] Body weight 210.00 [lb_av] 210.00 [lb_av] MEDEN T ([facility]) Body height 64 [in_i] 64 [in_i] MEDENT ([facility]) 5'4" Body mass index (BMI) [Ratio] 36.0 kg/m2 36.0 k g/m2 [facility] Body temperature 96.2 [degF] 96.2 [degF] [facility] [facility] Pt unable to obatin full set of vitals. [facility] PhenX - pain, abdominal - type and intensity protocol 0 0 [facility] ([facility]) Pt unable to obatin full set of vitals. [facility] Body weight 210 [lb_av] 210 [lb_av] eCW1 ([facility]) Body height 64 [in_i] 64 [in_i] eCW1 ([facility]) Body mass index (BMI) [Ratio] 36.04 kg/m2 36.04 kg/m2 eCW1 ([facility]) Systolic blood pressure 132 mm[Hg] 132 mm[Hg] e CW1 ([facility]) Diastolic blood pressure 76 mm[Hg] 76 mm[Hg] eCW1 ([facility]) Patient Treatment Plan of Care Planned Activity Planned Date Details Description Data Source (s) Hydroxyzine Hydrochloride 50 MG Oral Tablet 01/09/2021 12:00:00 AM EDT [facility] ([facility]) buspirone hydrochloride 5 MG Oral Tablet 01/09/2021 12:00:00 AM EDT [facility] ([facility]) Vitamin D (Ergocalciferol) 1.25 MG (16604 UT) Oral Cap casa 12/08/2020 12:00:00 AM EDT [facility] ([facility]) Trazodone Hydrochloride 50 MG Oral Tablet 11/23/2020 12:00:00 AM ED T [facility] ([facility]) Sertraline 100 MG Oral Tablet 11/23/2020 12:00:00 AM EDT [facility] ([facility]) Levothyroxine Sodium 0.075 MG Oral Tablet 09/21/2020 12:00:00 AM ED T [facility] ([facility]) Vitamin D (Ergocalciferol) 1.25 MG (12250 UT) Oral Cap casa 09/21/2020 12:00:00 AM EDT [facility] ([facility]) Levothyroxine Sodium 0.05 MG Oral Tablet 08/11/2020 12:00:00 AM EST [facility] ([facility]) buspirone hydrochloride 5 MG Oral Tablet 07/11/2020 12:00:00 AM EST [facility] ([facility]) Hydroxyzine Hydrochloride 50 MG Oral Tablet 07/11/2020 12:00:00 AM EST [place] ([facility]) Sertraline 100 MG Oral Tablet [Zoloft] 04/28/2020 12:00:00 AM EDT eCW1 ([facility]) Levothyroxine Sodium 0.025 MG Oral Tablet [Synthroid] 04/28/2020 12:00:00 AM EDT eCW1 ([facility]) Sprintec 28 0.25-35 MG-MCG 04/28/2020 12:00:00 AM EDT eCW1 ([facility]) Levothyroxine Sodium 0.025 MG Oral Tablet [Synthroid] 04/28/2020 12:00:00 AM EDT eCW1 ([facility]) Sertraline 100 MG Oral Tablet [Zoloft] 04/28/2020 12:00:00 AM EDT eCW1 ([facility]) Sprintec 28 0.25-35 MG-MCG 04/28/2020 12:00:00 AM EDT eCW1 ([facility]) Levothyroxine Sodium 0.05 MG Oral Tablet 03/02/2019 12:00:00 AM EDT [facility] ([facility])
== END 2021-04-17 20:30 | disposition left against medical advice (07) ==
LOC: M ED 20:12
DX: Z53.21 Procedure and treatment not carried out due to patient leaving prior to being seen by health care provider (principal)

== ENCOUNTER → 2023-03-12 | Outpatient (REF) | LOC: M LAB 09:17 | PROVIDERS: ATTEND Nurse Practitioner Adult Health | DX: Z02.89 Encounter for other administrative examinations (principal) ==

== ENCOUNTER → 2023-12-13 | Outpatient (REF) | payer OTHER | LOC: M LAB REF 17:39 | PROVIDERS: ATTEND Physician Assistant Medical | DX: R07.0 Pain in throat (principal) ==

== ENCOUNTER → 2024-08-20 | Outpatient (REF) | payer OTHER | LOC: M LAB REF 11:58 | PROVIDERS: ATTEND Physician Assistant Medical | DX: R50.9 Fever, unspecified (principal) ==